=== PATIENT | male | born 1945 | race Caucasian/White ===

== ENCOUNTER 2016-12-21 21:45 | Inpatient (IN) | payer OTHER ==
[~2016-12-21] VITALS: Ht 175.3 cm; Wt 78.2 kg
[~2016-12-21 21:45] MED LIST: ASPEC81 PO; MRLP17 PO; PRLSRUNK
[2016-12-21] MEDS ORDERED: PRLSR20 PO (22:49)
[2016-12-21] MEDS ORDERED: ASPI81TA28 PO (22:49)
[2016-12-21] MEDS ORDERED: POLY335019 PO (22:49)
[2016-12-21] MEDS ORDERED: SODIUM CHLORIDE 0.9% 500ML 500 ML IV STA (23:23)
[2016-12-21] MEDS ORDERED: SODIUM CHLORIDE 0.9% 1000ML 1,000 ML IV STA (23:23)
[2016-12-21 23:58] LABS: BASO % 0.1 %; BASO ABS # 0.01 K/uL (0-0.2); COMPLETE YES; EOS % 0.8 %; HEMATOCRIT 43.5 % (42-52); IG% 0.3 %; LYMPH ABS # 1.32 K/uL (1.2-3.4); MEAN CELL VOLUME 85.1 fL (80-100); MEAN CORPUSCULAR HEMOGLOBIN 30.3 pg (25-34); MEAN CORPUSCULAR HGB CONC 35.6 g/dl (32-36); MONO % 5.7 %; NEUT % 82.1 %; PLATELET COUNT 238 K/uL (130-400); RED BLOOD COUNT 5.11 M/uL (4.7-6.1); WHITE BLOOD COUNT 11.96 K/uL (4.8-10.8)
[2016-12-22] VITALS (7 sets, daily range): BP systolic 115–156; BP diastolic 46–84; PULSE 46–53; TEMP 36.3–36.8; O2SAT 93–96; BMI 25.4
[2016-12-22 00:19] LABS: BUN/CREATININE RATIO 13.6 (10-20); CALCIUM 9.6 mg/dl (8.5-10.1); CREATININE 2.5 mg/dl (0.60-1.40); MAGNESIUM 2.2 mg/dl (1.8-2.4); POTASSIUM 4.2 mmol/L (3.5-5.1)
[2016-12-22] MEDS ORDERED: NovoLIN-R INSULIN PER UNIT CHARGE SC STA (00:20)
[2016-12-22] MEDS ORDERED: SODIUM CHLORIDE 0.9% 500ML 500 ML IV STA (00:23)
--- NOTE | 2016-12-22 00:29 | EMERGENCY ROOM VISIT NOTE ---
History Report prepared by Felix: Ish Peterson Under the Supervision of: Dr. Ursula Jefferson M.D. First contact with patient: 22:59 Chief Complaint: HYPERGLYCEMIA Stated Complaint: HIGH SUGAR Nursing Triage Summary: pt c/o increased thirst, appetite, frequent urination and lower back pain, pt checked his bsg at home and his meter read high. History of Present Illness The patient is a 71 year old male who presents to the Emergency Room with complaints of increasing frequency of urination that he has been experiencing for the past four weeks. The patient has been experiencing increased thirst and urinary frequency. He has never been diagnosed as a diabetic, but recently checked his blood sugar and found it was hyperglycemic. 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 The patient is also complaining of chronic lower back pain. He states that his pain is worsened when his bladder is full. 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 Review of Systems See HPI for pertinent positives & negatives. A total of 10 systems reviewed and were otherwise negative. Past Medical & Surgical Medical Problems: (1) JUANCHO (acute kidney injury) (2) Hyperglycemia (3) Liver cancer (4) Rectal adenocarcinoma Liver cancer Family History Cancer Social History Smoking Status: Never Smoker Drug Use: none Marital Status: Housing Status: lives with significant other Occupation Status: retired Current/Historical Medications Scheduled Aspirin (Aspirin Ec), 81 MG PO DAILY Atorvastatin (Atorvastatin Calcium), 20 MG PO QAM Doxycycline Hyclate (Doxycycline Hyclate), 100 MG PO BID Insulin Aspart (Novolog Flexpen), 5 UNITS SC with supper Insulin Detemir (Levemir Flextouch), 15 UNITS SQ BID Omeprazole (Prilosec), 20 MG PO DAILY Polyethylene Glycol 3350 (Miralax), 17 GM PO DAILY Durable Medical Equipment Insulin Pen Needle (Bd Pen Needle/Melody/Ultra), EA SQ TID Lancets (Onetouch Delica Lancets), EA SQ [OneT Verio Tst Strps], EA Allergies Coded Allergies: No Known Allergies (Verified , 12/21/16) Physical Exam Vital Signs Date Time Temp Pulse Resp B/P Pulse Ox O2 Delivery O2 Flow Rate FiO2 12/22/16 01:25 50 15 12/22/16 01:20 62 20 12/22/16 01:15 50 16 12/22/16 01:10 50 19 12/22/16 01:05 49 15 12/22/16 01:01 147/77 12/22/16 01:00 52 21 12/22/16 00:55 49 14 12/22/16 00:50 49 19 12/22/16 00:45 48 17 12/22/16 00:40 48 17 12/22/16 00:35 47 17 12/22/16 00:31 161/81 12/22/16 00:30 54 17 12/22/16 00:25 48 17 12/22/16 00:20 49 19 12/22/16 00:15 57 16 12/22/16 00:10 52 19 12/22/16 00:08 54 12/22/16 00:05 66 19 12/22/16 00:03 159/77 12/22/16 00:02 51 18 159/77 96 12/21/16 22:01 37.2 60 18 141/83 96 Room Air Physical Exam Vital signs reviewed. General: Well-appearing elderly male, in no significant distress. HEENT: No scleral icterus, PERRLA, neck supple. Atraumatic. Dry mucous membranes. Cardiovascular: Regular rate and rhythm, no extra sounds. Pulmonary: Clear to auscultation bilaterally, normal work of breathing. Abdomen: Soft, nontender nondistended, positive bowel sounds. Left lower abdominal colostomy bag. Musculoskeletal: Atraumatic, no peripheral edema. Back: Non tender to the thoracic/lumbar, no CVA tenderness. Neurologic: Patient awake alert and oriented x 3 Skin: Warm, dry, no rash Medical Decision & Procedures ER Provider Diagnostic Interpretation: X-ray results as stated below per my interpretation and radiologist interpretation. Other radiology results as stated below per my review and radiologist interpretation: X-RAY LUMBAR SPINE: X-ray shows no acute fracture, no malalignment. Fecal Retention present. Laboratory Results Test 12/21/16 22:25 12/21/16 23:30 Total Bilirubin 0.6 mg/dl (0.2-1) Direct Bilirubin 0.1 mg/dl (0-0.2) Aspartate Amino Transf (AST/SGOT) 9 U/L (15-37) Alanine Aminotransferase (ALT/SGPT) 19 U/L (12-78) Alkaline Phosphatase 214 U/L (45-117) Total Protein 8.1 gm/dl (6.4-8.2) Albumin 3.7 gm/dl (3.4-5.0) Lipase 290 U/L (73-393) Beta-Hydroxybutyric Acid 3.94 mg/dL (0.2-2.81) Urine Color YELLOW Urine Appearance TURBID (CLEAR) Urine pH 6.0 (4.5-7.5) Urine Specific [place] 1.015 (1.000-1.030) Urine Protein NEG (NEG) Urine Glucose (UA) 3+ (NEG) Urine Ketones NEG (NEG) Urine Occult Blood 3+ (NEG) Urine Nitrite NEG (NEG) Urine Bilirubin NEG (NEG) Urine Urobilinogen NEG (NEG) Urine Leukocyte Esterase MODERATE (NEG) Urine WBC (Auto) >30 /hpf (0-5) Urine RBC (Auto) 5-10 /hpf (0-4) Urine Hyaline Casts (Auto) 1-5 /lpf (0-5) Urine Epithelial Cells (Auto) 20-30 /lpf (0-5) Urine Bacteria (Auto) NEG (NEG) Urine Yeast (Auto) (NONE PRSENT) Laboratory results per my review. Medications Administered Medications (Trade) Dose Ordered Sig/Jenny Route Start Time Stop Time Status Last Admin Dose Admin Sodium Chloride 500 ml @ 999 mls/hr Q31M STAT IV 12/21/16 23:23 12/21/16 23:53 DC 12/22/16 00:01 999 MLS/HR Sodium Chloride (Nss 1000ml) 1,000 ml @ 150 mls/hr Q6H40M STAT IV 12/21/16 23:23 12/22/16 03:05 DC 12/22/16 00:01 150 MLS/HR Insulin Human Regular 10 units 10 units NOW STAT SC 12/22/16 00:20 12/22/16 00:21 DC 12/22/16 00:26 10 UNITS Sodium Chloride (Nss 500ml) 500 ml @ 999 mls/hr Q31M STAT IV 12/22/16 00:23 12/22/16 00:53 DC 12/22/16 00:27 999 MLS/HR Ciprofloxacin/ Dextrose (Cipro / D5w) 400 mg NOW STAT IV 12/22/16 01:05 12/22/16 01:06 DC 12/22/16 01:26 400 MG ECG Indication: other (Hyperglycemia) Rate (beats per minute): 50 Rhythm: sinus bradycardia Findings: LAFB, T-wave inversion (Lateral), other (Septal infarct) Comparison ECG Date: 07/02/2010 Change: T waves inversions worsened from previous ED Course 2321: Past medical records reviewed. The patient was evaluated in room C2. A complete history and physical examination was performed. 2323: Ordered Sodium Chloride 1000 mL @ 150 mL/hr IV, Sodium Chloride 500 mL @ 999 mL/hr IV. 0020: Ordered Human Insulin Regular 10 units SC. 0023: Ordered Sodium Chloride 500 mL @ 999 mL/hr IV. 0105: Ordered Ciprofloxacin 400 mg IV. 0109: I discussed the case with Dr. Jorge Luis CHRISTIANSON Hospitalist, he will evaluate the patient for further treatment. Medical Decision Differential Diagnosis include: New onset diabetes, sepsis, dehydration, UTI, pyelonephritis, chronic colonization of the bladder. This pt was evaluated and appeared to be in no distress. PE reveals dry MM, urine sample at bedside is cloudy. Beside glucose is elevated at 579, confirmed by lab testing. UA is indicative of infection. Pt was hydrated with NSS. Lab work does not indicate acidosis. Pt was medicated with SQ insulin 10 units regular and IV ceftriaxone. Results were reviewed with pt and family. Pt will be evaluated by the hospitalist service for further management. Consults Time Called: 99 Consulting Physician: Dr. Jorge Luis [facility] Returned Call: [phone] I discussed the case with Dr. Jorge Luis CHRISTIANSON Hospitalist, he will evaluate the patient for further treatment. Impression Primary Impression: Hyperglycemia Additional Impressions: Diabetes mellitus, new onset Lumbar back pain UTI (urinary tract infection) Pyelonephritis Scribe Attestation The scribe's documentation has been prepared under my direction and personally reviewed by me in its entirety. I confirm that the note above accurately reflects all work, treatment, procedures, and medical decision making performed by me. Departure Information Dispostion Being Evaluated By Hospitalist Prescriptions [OneT Verio Tst Strps] No Conflict Check EA, #120 Prov: Ragini Strickland MD 12/23/16 Lancets (ONETOUCH DELICA LANCETS) 1 Mis Mis EA SQ, #120 Prov: Ragini Strickland MD 12/23/16 Insulin Pen Needle (BD PEN NEEDLE/MELODY/ULTRA) 1 Mis Mis EA SQ TID for for insulin injection, #90 Prov: Ragini Strickland MD 12/23/16 Insulin Detemir (Levemir Flextouch) 100 Unit/Ml Inj 15 UNITS SQ BID, #1 BOX Prov: Ragini Strickland MD 12/23/16 Insulin Aspart (NOVOLOG FLEXPEN) 100 Units/Ml Inj 5 UNITS SC with supper for 30 Days, #1 BOX 0 Refills Prov: Ragini Strickland MD 12/23/16 Atorvastatin (Atorvastatin Calcium) 20 Mg Tab 20 MG PO QAM, #30 TABS Prov: Ragini Strickland MD 12/23/16 Doxycycline Hyclate (Doxycycline Hyclate) 100 Mg Cap 100 MG PO BID for 8 Days, #16 CAP 0 Refills Prov: Ragini Strickland MD 12/23/16 Referrals James Zheng M.D. (PCP) Patient Instructions My [facility] Problem Qualifiers Additional Impressions: Lumbar back pain Chronicity: chronic Back pain laterality: bilateral Sciatica presence: without sciatica Qualified Codes: M54.5 - Low back pain; G89.29 - Other chronic pain UTI (urinary tract infection) Urinary tract infection type: catheter-associated UTI Indwelling urinary catheter type: unspecified Encounter type: initial encounter Qualified Codes : T83.511A - Infection and inflammatory reaction due to indwelling urethral catheter, initial encounter; N39.0 - Urinary tract infection, site not specified
[2016-12-22 00:36] LABS: URINE APPEARANCE TURBID (CLEAR); URINE BILIRUBIN NEG (NEG); URINE COLOR YELLOW; URINE EPITHELIAL CELL AUTO 20-30 /lpf (0-5); URINE NITRITE NEG (NEG); URINE SPECIFIC GRAVITY 1.015 (1.000-1.030); UROBILINOGEN NEG (NEG); ZZUR CULT IF INDIC CLEAN CATCH YES
[2016-12-22 00:38] LABS: BETA-HYDROXYBUTYRATE 3.94 mg/dL (0.2-2.81)
[2016-12-22 00:39] LABS: MANUAL MICROSCOPIC REQUIRED? NO; REVIEW REQ? YES
[2016-12-22] MEDS ORDERED: CIPROFLOXACIN 400MG / 200ML D5W IV STA (01:05)
[2016-12-22] MEDS ORDERED: ONDANSETRON INJ 2 MG/ML 2 ML VIAL IV PRN (01:30)
[2016-12-22] MEDS ORDERED: ZOLPIDEM TARTRATE 5 MG TAB PO PRN (01:30)
[2016-12-22] MEDS ORDERED: ACETAMINOPHEN 325 MG TAB PO PRN (01:30)
[2016-12-22] MEDS ORDERED: POLYETHYLENE (MIRALAX) 17 GM PACK PO PRN (01:30)
[2016-12-22] MEDS ORDERED: MAGNESIUM HYDROXIDE SUSP 30 ML UDC PO PRN (01:30)
[2016-12-22] MEDS ORDERED: INSULIN IV INFUSION PROTOCOL STA (01:50)
[2016-12-22] MEDS ORDERED: HHS GOAL RANGE 250-350 mg/dl ONE (02:00)
--- NOTE | 2016-12-22 02:01 | History and Physical ---
History & Physical Date & Time of Service: Dec 22, 2016 at 01:59 Chief Complaint: High Sugar Primary Care Physician: James Zheng M.D. History of Present Illness Source: patient 71 y/o M Hx rectal CA in remission, CKD 3, Chronic urinary retention- self catheterizes. Pt has had a 15 Lb wt loss, progressive fatigue and back pain over the last several weeks. He has also c/o frequent urination and thirst. He has to catheterize to urinate but noted that he has had more frequent bladder fullness and tends to have back pain when his bladder is full. His son is a nurse and checked his blood glucose noting that it was over 500. He was subsequently brought to the ER. His glucose was confirmed at 600 on arrival. He has no history of diabetes. He denies fevers, CP, SOB, N/V/D. Initial labs were notable for an elevated creatinine in addition to hyperglycemia as mentioned. 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 Smoking Status: Never Smoker Drug Use: none Marital Status: Occupational Status: retired Immunizations History of Influenza Vaccine: Yes History of Tetanus Vaccine?: Unknown History of Pneumococcal: Yes History of Hepatitis B Vaccine: No Multi-Drug Resistant Organisms History of MDRO: Yes Allergies Coded Allergies: No Known Allergies (Verified , 12/21/16) Home Medications Scheduled Aspirin (Aspirin Ec), 81 MG PO DAILY Omeprazole (Prilosec), 20 MG PO DAILY Polyethylene Glycol 3350 (Miralax), 17 GM PO DAILY Review of Systems Constitutional: + fatigue, + weakness, + weight loss, No chills, No fever, No sweats Eyes: No eye pain, No worsening of vision ENT: No hearing loss, No nasal symptoms, No unusual epistaxis Respiratory: No cough, No sputum, No wheezing Cardiovascular: No PND, No chest pain, No orthopnea Abdomen: No nausea, No pain, No vomiting Musculoskeletal: No joint pain, No muscle pain Genitourinary - Male: + dysuria, + urinary frequency, + urinary retention, + urinary urgency, No hematuria Neurologic: No memory loss, No paralysis, No weakness Psychiatric: No depression symptoms Endocrine: + fatigue Hematologic / Lymphatic: No abnormal bleeding/bruising Integumentary: No rash Allergic / Immunologic: No environmental allergies Physical Exam Vital Signs Date Time Temp Pulse Resp B/P Pulse Ox O2 Delivery O2 Flow Rate FiO2 12/22/16 01:58 37.2 50 17 152/73 96 12/22/16 01:45 50 17 12/22/16 01:40 53 18 12/22/16 01:35 51 20 12/22/16 01:31 152/73 12/22/16 01:30 54 21 12/22/16 01:25 50 15 12/22/16 01:20 62 20 12/22/16 01:15 50 16 12/22/16 01:10 50 19 12/22/16 01:05 49 15 12/22/16 01:01 147/77 12/22/16 01:00 52 21 12/22/16 00:55 49 14 12/22/16 00:50 49 19 12/22/16 00:45 48 17 12/22/16 00:40 48 17 12/22/16 00:35 47 17 12/22/16 00:31 161/81 12/22/16 00:30 54 17 12/22/16 00:25 48 17 12/22/16 00:20 49 19 12/22/16 00:15 57 16 12/22/16 00:10 52 19 12/22/16 00:08 54 12/22/16 00:05 66 19 12/22/16 00:03 159/77 12/22/16 00:02 51 18 159/77 96 12/21/16 22:01 37.2 60 18 141/83 96 Room Air General Appearance: WD/WN, no apparent distress Head: normocephalic, atraumatic Eyes: normal inspection, PERRL, EOMI ENT: normal ENT inspection, hearing grossly normal, TMs normal, pharynx normal Neck: supple, no adenopathy, thyroid normal, no JVD Respiratory/Chest: chest non-tender, lungs clear, normal breath sounds, no respiratory distress, no accessory muscle use Cardiovascular: regular rate, rhythm, no edema, no gallop, no JVD, no murmur, normal peripheral pulses Abdomen/GI: normal bowel sounds, non tender, soft, + pertinent finding ( Colosomy bag LLQ - site is clean) Back: normal inspection, + pertinent finding (Back pain with movement) Extremities/Musculoskelatal: no calf tenderness, no pedal edema, + pertinent finding (Back pain with movement) Neurologic/Psych: 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, no motor/sensory deficits, alert, normal mood/affect, normal reflexes, oriented x 3 Skin: normal color, warm/dry, no rash Diagnostics Laboratory Results Results Past 24 Hours Test 12/21/16 22:25 12/21/16 22:26 12/21/16 23:30 12/22/16 01:21 Range/Units White Blood Count 11.96 4.8-10.8 K/uL Red Blood Count 5.11 4.7-6.1 M/uL Hemoglobin 15.5 14.0-18.0 g/dL Hematocrit 43.5 42-52 % Mean Corpuscular Volume 85.1 80-100 fL Mean Corpuscular Hemoglobin 30.3 25-34 pg Mean Corpuscular Hemoglobin Concent 35.6 32-36 g/dl Platelet Count 238 130-400 K/uL Mean Platelet Volume 12.0 7.4-10.4 fL Neutrophils (%) (Auto) 82.1 % Lymphocytes (%) (Auto) 11.0 % Monocytes (%) (Auto) 5.7 % Eosinophils (%) (Auto) 0.8 % Basophils (%) (Auto) 0.1 % Neutrophils # (Auto) 9.82 1.4-6.5 K/uL Lymphocytes # (Auto) 1.32 1.2-3.4 K/uL Monocytes # (Auto) 0.68 0.11-0.59 K/uL Eosinophils # (Auto) 0.09 0-0.5 K/uL Basophils # (Auto) 0.01 0-0.2 K/uL RDW Standard Deviation 38.9 36.4-46.3 fL RDW Coefficient of Variation 12.6 11.5-14.5 % Immature Granulocyte % (Auto) 0.3 % Immature Granulocyte # (Auto) 0.04 0.00-0.02 K/uL Sodium Level 133 136-145 mmol/L Potassium Level 4.2 3.5-5.1 mmol/L Chloride Level 94 98-107 mmol/L Carbon Dioxide Level 27 21-32 mmol/L Anion Gap 12.0 3-11 mmol/L Blood Urea Nitrogen 34 7-18 mg/dl Creatinine 2.50 0.60-1.40 mg/dl Est Creatinine Clear Calc Drug Dose 26.7 ml/min Estimated GFR () 28.7 Estimated GFR (Non- 24.7 BUN/Creatinine Ratio 13.6 10-20 Random Glucose 601 70-99 mg/dl Calcium Level 9.6 8.5-10.1 mg/dl Magnesium Level 2.2 1.8-2.4 mg/dl Total Bilirubin 0.6 0.2-1 mg/dl Direct Bilirubin 0.1 0-0.2 mg/dl Aspartate Amino Transf (AST/SGOT) 9 15-37 U/L Alanine Aminotransferase (ALT/SGPT) 19 12-78 U/L Alkaline Phosphatase 214 45-117 U/L Total Protein 8.1 6.4-8.2 gm/dl Albumin 3.7 3.4-5.0 gm/dl Lipase 290 73-393 U/L Beta-Hydroxybutyric Acid 3.94 0.2-2.81 mg/dL Bedside Glucose 579 451 70-99 mg/dl Urine Color YELLOW Urine Appearance TURBID CLEAR Urine pH 6.0 4.5-7.5 Urine Specific [place] 1.015 1.000-1.030 Urine Protein NEG NEG Urine Glucose (UA) 3+ NEG Urine Ketones NEG NEG Urine Occult Blood 3+ NEG Urine Nitrite NEG NEG Urine Bilirubin NEG NEG Urine Urobilinogen NEG NEG Urine Leukocyte Esterase MODERATE NEG Urine WBC (Auto) >30 0-5 /hpf Urine RBC (Auto) 5-10 0-4 /hpf Urine Hyaline Casts (Auto) 1-5 0-5 /lpf Urine Epithelial Cells (Auto) 20-30 0-5 /lpf Urine Bacteria (Auto) NEG NEG Urine Yeast (Auto) NONE PRSENT Microbiology Results 12/21/16 Urine Culture, Received Pending Impression Assessment and Plan 71 y/o M Hx rectal CA in remission, CKD 3, Chronic urinary retention- self catheterizes. Pt has had a 15 Lb wt loss, progressive fatigue and back pain over the last several weeks. He has also c/o frequent urination and thirst. He has to catheterize to urinate but noted that he has had more frequent bladder fullness and tends to have back pain when his bladder is full. His son is a nurse and checked his blood glucose noting that it was over 500. He was subsequently brought to the ER. His glucose was confirmed at 600 on arrival. 1) New onset DM - Pt placed on an insulin infusion to revert to transition to a sliding scale - we will place an endocrinology consult to establish an outpatient regimen and follow-up. DM diet and nutritional counseling will be requested. An Hba1C will be ordered for AM. 2) JUANCHO - will provide aggressive hydration and recheck labs AM. His back pain is of some concern so that we will obtain a renal US to evaluate for hydro. It may be that due to polyuria he was experiencing added pressure on his bladder leading to hydronephrosis. We will recommend a catheter for the evening as well. An FeNa and renal consult should be obtained if there is no improvement. 3) UA is marginally positive - clinically treatment is indicated - we will cont Ceftriaxone pending culture results Full code, Heparin prophylaxis Total tome for this admit including review of labs, meds, previous records - discussion with pt and family - 35 min Level of Care Telemetry Resuscitation Status FULL RESUSCITATION VTE Prophylaxis VTE Risk Assessment Done? Y/N: Yes Risk Level: High Given or contraindicated: Unfractionated heparin SQ
[2016-12-22] MEDS ORDERED: GLUCAGON FOR INJ 1 MG VIAL SQ PRN (02:15)
[2016-12-22] MEDS ORDERED: GLUCOSE 10 TABS/TUBE PO PRN (02:15)
[2016-12-22] MEDS ORDERED: GLUCOSE 40% GEL 15 GM TUBE PO PRN (02:15)
[2016-12-22] MEDS ORDERED: DEXTROSE 50% 50 ML SYR IV PRN (02:15)
[2016-12-22] MEDS ORDERED: INSULIN HUMAN REGULAR IV BOLUS 3 UNIT in SYRINGE 0 ML IV SCH (02:30)
[2016-12-22] MEDS ORDERED: INSULIN REGULAR 250 UNITS in SODIUM CHLORIDE 0.9% 250ML 250 ML IV SCH (02:30)
[2016-12-22] MEDS: SODIUM CHLORIDE 0.9% 1000ML 1,000 ML IV SCH ×2 (03:10→08:19)
[2016-12-22] MEDS: CEFTRIAXONE SOD INJ 1 GM in DEXTROSE 5% ADD-VANTAGE 50ML 50 ML IV SCH (03:17)
[2016-12-22 05:36] LABS: PROTHROMBIN TIME (PATIENT) 11.1 SECONDS (9.0-12.0)
[2016-12-22 05:53] LABS: BUN/CREATININE RATIO 14.3 (10-20); CALCIUM 8.5 mg/dl (8.5-10.1); CREATININE 2.1 mg/dl (0.60-1.40); MAGNESIUM 2.1 mg/dl (1.8-2.4); PHOSPHORUS 2.7 mg/dl (2.5-4.9); POTASSIUM 3.4 mmol/L (3.5-5.1)
[2016-12-22 06:11] LABS: ESTIMATED AVERAGE GLUCOSE 341 mg/dl; HA1C FLAG Normal (Normal)
[2016-12-22] MEDS: HEPARIN SOD 5000 UNIT/0.5 ML CARP SQ SCH ×3 (06:16→22:03)
--- NOTE | 2016-12-22 06:18 | DIAGNOSTIC IMAGING REPORT ---
LUMBAR SPINE 5 VIEWS HISTORY: Pain Low back pain, h/o colon liver CA COMPARISON: None. FINDINGS: There is no fracture. No subluxation. Moderate degenerative disc changes throughout IMPRESSION: Moderate degenerative change. No acute process. Electronically signed by: Niall Ta M.D. 12/22/2016 6:17 AM Dictated Date/Time: 12/22/2016 6:15 AM
[2016-12-22] MEDS ORDERED: INSULIN ASPART 100 UNITS/ML 3 ML PEN SC SCH ×2 (07:00→08:00)
[2016-12-22] MEDS ORDERED: NURSING DECISION MEDICATION ORDER SCH (07:30)
[2016-12-22] MEDS ORDERED: CEFTRIAXONE PHARMACY CONSULT IN PROGRESS PRN (07:45)
[2016-12-22] MEDS ORDERED: POTASSIUM CHLORIDE 10 MEQ TABCR PO STA (07:51)
[2016-12-22] MEDS: INSULIN ASPART 100 UNITS/ML 3 ML PEN SC SCH ×5 (08:14→23:57)
[2016-12-22] MEDS: PANTOprazole SOD 40 MG TAB PO SCH (08:18)
[2016-12-22] MEDS: POLYETHYLENE (MIRALAX) 17 GM PACK PO SCH (08:18)
[2016-12-22] MEDS: ASPIRIN 81 MG ECTAB PO SCH (08:18)
[2016-12-22] MEDS ORDERED: INSULIN GLARGINE SOLOSTAR 100 UNITS/ML 3 ML PEN SC ONE (09:15)
--- NOTE | 2016-12-22 09:29 | Progress Note ---
Progress Note Date of Service Dec 22, 2016. Progress Note Pt admitted after midnight. Chart reviewed, pt seen and examined. Improved today , no back pain, glucose down to 189, now off insulin gtt. No other issues at this time. Vitals reviewed, sinus yanni on tele NAD, AAOx3 Reg rhythm, yanni, no mgr CTAB no wcr breathing unlabored Abd soft NT ND +BS Ext no edema, 2+ DP and PT pulses Skin: dry skin on feet but no cracks or rashes New onset DMII with hyperglycemia, polyuria, polydypsia, weight loss. HgbA1C 13.5%, discussed diagnosis and complications possible, need for treatment. Not acidotic. start Lantus 15 units bid -continue Accuchecks and SSI. -Awaiting Diabetes education No need for Endocrine consultation at this time. - Check lipids and TSH in the AM, will need statin. 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 -continue IVFs -follow PRP Suspected UTI-self catheterizes at home due to chronic urinary retention s/p proctectomy-UA abnormal -continue empiric Rocephin -await Ur cx -continue Pino catheter for now Proph-heparin SQ Dispo-to home likely tomorrow if renal function continues to improve
[2016-12-22] MEDS ORDERED: PHARMACY GLYCEMIC MGMT CONSULT PRN (09:45)
--- NOTE | 2016-12-22 14:56 | Pharmacy Progress Note ---
Glycemic Control Intl Consult Date of Service Dec 22, 2016. Scope Glycemic Pharmacist consulted by Dr Strickland on 12/22/16 for glycemic control and to write orders per [facility] inpatient glycemic control protocol Objective Weight (Kilograms): 77.900 Accuchecks BSG (last 24hrs): Test 12/21/16 22:25 12/21/16 22:26 12/22/16 01:21 12/22/16 03:54 Random Glucose 601 mg/dl (70-99) Bedside Glucose 579 mg/dl (70-99) 451 mg/dl (70-99) 304 mg/dl (70-99) Test 12/22/16 04:50 12/22/16 05:18 12/22/16 05:53 12/22/16 06:47 Bedside Glucose 262 mg/dl (70-99) 213 mg/dl (70-99) 189 mg/dl (70-99) Random Glucose 257 mg/dl (70-99) Test 12/22/16 10:36 12/22/16 13:50 Bedside Glucose 301 mg/dl (70-99) 253 mg/dl (70-99) Laboratory Data (last 24hrs) Test 12/21/16 22:25 12/22/16 05:18 Anion Gap 12.0 mmol/L 8.0 mmol/L BUN/Creatinine Ratio 13.6 14.3 Blood Urea Nitrogen 34 mg/dl 30 mg/dl Creatinine 2.50 mg/dl 2.10 mg/dl Potassium Level 4.2 mmol/L 3.4 mmol/L Sodium Level 133 mmol/L 138 mmol/L White Blood Count 11.96 K/uL Red Blood Count 5.11 M/uL Hemoglobin 15.5 g/dL Hematocrit 43.5 % Mean Corpuscular Volume 85.1 fL Mean Corpuscular Hemoglobin 30.3 pg Mean Corpuscular Hemoglobin Concent 35.6 g/dl Platelet Count 238 K/uL Mean Platelet Volume 12.0 fL Neutrophils (%) (Auto) 82.1 % Lymphocytes (%) (Auto) 11.0 % Monocytes (%) (Auto) 5.7 % Eosinophils (%) (Auto) 0.8 % Basophils (%) (Auto) 0.1 % Neutrophils # (Auto) 9.82 K/uL Lymphocytes # (Auto) 1.32 K/uL Monocytes # (Auto) 0.68 K/uL Eosinophils # (Auto) 0.09 K/uL Basophils # (Auto) 0.01 K/uL Hemoglobin A1c 13.5 % HbA1c Test 12/22/16 05:18 Hemoglobin A1c 13.5 % (4.5-5.6) H Recent Pertinent Medications Outpatient Anti-diabetic Regimen: * N/A * A1c = 13.5 % 12/22/16 The patient is currently receiving: * Basal insulin: Lantus 15 units every 12 hours * Correctional Insulin: Novolog Correction per scale ACHS Goal Range: Low 120 mg/dL - High 160 mg/dL Correction Factor: 30 mg/dL/unit * Prandial insulin: Per carb ratio of 1 unit per 10 grams CHO consumed * Oral Agents: none Risk Factors for Insulin Resistance: * Steroids: no * Infection: possible UTI, on Rocephin * Pressors: no * IVF: NS@150 ml/hr * Recent Surgery: no * Diet: regular diet, changed to type 2 diabetic * Mechanical Ventilation: no Assessment & Plan ASSESSMENT: * ADA & AACE recommend a goal blood sugar range 140-180 mg/dl for the majority of critically ill & non-critically ill patients. However, more stringent targets may be selected in individual cases. * 71 yo patient with new diagnosis of DM. BSG over 600 in ED and mildly acidotic. Given 10 units regular insulin SC, then insulin drip started @0235 and dc' d @0653 when BSG became less than 200 and anion gap closed. Physician started Novolog correction factor 40. Pharmacy consulted about 0900. * A1c of 13.5% indicates poorly controlled diabetes requiring basal insulin (at least initially.) Started weight-based basal/bolus dosing, and will reassess in am. PLAN FOR INPATIENT GLYCEMIC CONTROL: * Basal insulin with LANTUS 15 units SQ BID * Correctional Insulin with NOVOLOG per scale ACHS or Q6hrs while NPO, extra BSG 's overnight tonight * Goal Range: Low 120 mg/dL - High 160 mg/dL * Correction Factor: 30 mg/dL/unit * Nutritional / Prandial insulin per carb ratio of 1 unit per 10 grams CHO consumed * Please note that the plan above was derived based on current level of insulin resistance and hospital stress. These recommendations are appropriate for inpatient admission only. Plan of care upon discharge will need to be reassessed to avoid potential outpatient hypo/hyperglycemia. Thank you.
[2016-12-22] MEDS: INSULIN GLARGINE SOLOSTAR 100 UNITS/ML 3 ML PEN SC SCH (21:35)
[2016-12-23 00:06] VITALS: BP 151/89; PULSE 47; TEMP 36.7; O2SAT 96
[2016-12-23] MEDS: CEFTRIAXONE SOD INJ 1 GM in DEXTROSE 5% ADD-VANTAGE 50ML 50 ML IV SCH (03:46)
[2016-12-23] MEDS: INSULIN ASPART 100 UNITS/ML 3 ML PEN SC SCH ×3 (03:49→11:50)
[2016-12-23 04:11] VITALS: BP 142/74; PULSE 46; TEMP 36.8; O2SAT 97
[2016-12-23] MEDS: HEPARIN SOD 5000 UNIT/0.5 ML CARP SQ SCH (05:36)
[2016-12-23 06:11] LABS: BASO % 0.3 %; BASO ABS # 0.02 K/uL (0-0.2); COMPLETE YES; EOS % 2.2 %; HEMATOCRIT 38.2 % (42-52); IG% 0.1 %; LYMPH % 26.7 %; LYMPH ABS # 1.81 K/uL (1.2-3.4); MEAN CELL VOLUME 87.6 fL (80-100); MEAN CORPUSCULAR HGB CONC 35.3 g/dl (32-36); MEAN PLATELET VOLUME 11.5 fL (7.4-10.4); MONO % 5.8 %; NEUT % 64.9 %; PLATELET COUNT 196 K/uL (130-400); RED BLOOD COUNT 4.36 M/uL (4.7-6.1); WHITE BLOOD COUNT 6.77 K/uL (4.8-10.8)
[2016-12-23 06:34] LABS: BUN/CREATININE RATIO 13.4 (10-20); CALCIUM 8.5 mg/dl (8.5-10.1); CREATININE 1.8 mg/dl (0.60-1.40); MAGNESIUM 1.9 mg/dl (1.8-2.4); POTASSIUM 3.8 mmol/L (3.5-5.1)
[2016-12-23 06:37] LABS: CHOLESTEROL/HDL RATIO 3.8
[2016-12-23] MEDS: ASPIRIN 81 MG ECTAB PO SCH (07:24)
[2016-12-23] MEDS: POLYETHYLENE (MIRALAX) 17 GM PACK PO SCH (07:24)
[2016-12-23] MEDS: PANTOprazole SOD 40 MG TAB PO SCH (07:24)
[2016-12-23] MEDS: INSULIN GLARGINE SOLOSTAR 100 UNITS/ML 3 ML PEN SC SCH (08:16)
[2016-12-23 08:18] VITALS: BP 138/67; PULSE 50; TEMP 36.8; O2SAT 95
--- NOTE | 2016-12-23 08:57 | Clinical Documentation Query ---
GIANNA Vizcarra : CLINICAL DOCUMENTATION QUERY Patient is a 71 year old male admitted for the evaluation and treatment of hyperglycemia in the setting of new onset DM, JUANCHO on CKD, and a UTI. 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 He is being treated with empiric Rocephin. Urine culture is pending. In your clinical opinion is this patient being managed for: ( x ) UTI due to intermittent urethral self catheterization ( ) Other explanation of clinical findings (Please Explain) ( ) Unable to determine (Please Define) ( ) Need to Discuss ( ) Not Agree The medical record reflects the following clinical findings, treatment, and risk factors. Clinical Indicators: Intermittent urethral self catheterization, suspected UTI Treatment: IV Rocephin Risk Factors: Intermittent urethral self catheterization Please clarify and document your clinical opinion in the progress notes and discharge summary. Terms such as "probable", "suspected", "likely", "questionable", "possible", or "still to be ruled out" are acceptable. IF IN AGREEMENT, YOU MUST DOCUMENT ABOVE DIAGNOSTIC STATEMENT IN DAILY PROGRESS NOTES AND DISCHARGE SUMMARY. This document is not part of the patient's record. Thank You, Remy Walters, DEACON [phone]
[2016-12-23 10:55] VITALS: Ht 175.3 cm; Wt 78.2 kg
[2016-12-23] MEDS ORDERED: LPT20 PO (11:33)
[2016-12-23] MEDS ORDERED: DXY100 PO (11:33)
[2016-12-23 11:59] VITALS: BP 120/59; PULSE 49; TEMP 36.6; O2SAT 95
[2016-12-23] MEDS ORDERED: INSU32MI13 SQ (12:12)
[2016-12-23] MEDS ORDERED: NVLGIPEN SC (12:12)
[2016-12-23] MEDS ORDERED: INSU3INJ3 SQ (12:12)
[2016-12-23] MEDS ORDERED: LANC-393 SQ (12:21)
[2016-12-23] MEDS ORDERED: [UNRECOGNIZED DRUG - SUPPLY] (12:21)
--- NOTE | 2016-12-23 12:32 | Discharge Instructions ---
Discharge Instructions Date of Service Dec 23, 2016. Admission Reason for Admission: Acute kidney injury, New onset Diabetes mellitus with Hyperglycemia Discharge Discharge Diagnosis / Problem: Acute kidney injury, New onset Diabetes mellitus with Hyperglycemia Discharge Goals Goal(s): Improve disease control, Therapeutic intervention Activity Recommendations Activity Limitations: resume your previous activity Exercise/Sports Limitations: gradually increase as tolerated Shower/Bathe: no limitations Driving or Machine Use: no limitations . Instructions / Follow-Up Instructions / Follow-Up You were admitted because of new onset diabetes mellitus with severe hyperglycemia (elevated blood sugar), as well as kidney failure. You were treated with IV fluids and started on insulin. You were seen by the Diabetic Nurse Educator and instructed on glucose testing, how to give yourself insulin, and proper diet to eat. You will need to be seen by an Construction Ironworker and have routine follow up with your PCP at least every 3 months for your diabetes. You will be started on atorvastatin for cholesterol and to reduce your risk of heart attack or stroke. You should check your feet regularly for cuts or cracks as well. Please check your blood glucose 4 times daily and take the insulin as prescribed. If you feel shaky, lightheaded, sweaty, or generally unwell, please check your blood glucose to see if it is too low. If it is below 70, you should drink juice or take a glucose tab which you can buy at the drug store. Your kidney function improved back to your baseline and this will need to be followed by Dr. Zheng as well. You were also found to have a urinary tract infection that is growing out Staph bacteria. The final culture was not back when you were discharged. Please take the antibiotic for this and have Dr. Zheng follow up on the final culture in the next 1-2 days. Please follow up with Dr. Zheng within 1 week. Current Hospital Diet Patient's current hospital diet: Regular Diet, Diabetes Type 2 Diet Discharge Diet Recommended Diet: Diabetes Type 2 Diet Procedures Procedures Performed: Lumbar spine xray Pending Studies Studies pending at discharge: yes List of pending studies: Urine culture Laboratory Results Hemoglobin A1c Test 12/22/16 05:18 Range/Units Estimated Average Glucose 341 mg/dl Hemoglobin A1c 13.5 H 4.5-5.6 % Lipid Panel Test 12/23/16 05:39 Range/Units Triglycerides Level 158 H 0-150 mg/dl Cholesterol Level 139 0-200 mg/dl HDL Cholesterol 37 mg/dl Cholesterol/HDL Ratio 3.8 LDL Cholesterol, Calculated 70 mg/dl Medical Emergencies . Who to Call and When: Medical Emergencies: If at any time you feel your situation is an emergency, please call 911 immediately. . Non-Emergent Contact Non-Emergency issues call your: Primary Care Provider Call Non-Emergent contact if: you have a fever, your pain is not controlled, your pain is worsening, you have any medication questions . . "Provider Documentation" section prepared by Ragini Strickland. VTE Core Measure Inpt VTE Proph given/why not?: Unfractionated heparin SQ
[2016-12-23 12:34] VITALS: BP 120/59; PULSE 49; TEMP 36.6; O2SAT 95
--- NOTE | 2016-12-23 21:43 | Discharge Summary ---
Discharge Summary Date of Service Dec 23, 2016. Discharge Summary Admission Date: Dec 22, 2016 at 01:26 Discharge Date: Dec 23, 2016 Discharge Disposition: Home with services (home RN) Principal Diagnosis: New onset DMII with hyperglycemia, JUANCHO Problems/Secondary Diagnoses: History of rectal CA CKD Stage III Chronic urinary retention requiring self-catheterization UTI secondary to intermittent self-catheterization present on admission Lumbar degenerative disc disease Immunizations: Have You Had Influenza Vaccine: Yes History of Tetanus Vaccine?: Unknown History of Pneumococcal: Yes History of Hepatitis B Vaccine: No Procedures: LUMBAR SPINE 5 VIEWS HISTORY: Pain Low back pain, h/o colon liver CA COMPARISON: None. FINDINGS: There is no fracture. No subluxation. Moderate degenerative disc changes throughout IMPRESSION: Moderate degenerative change. No acute process. Consultations: None Medication Reconciliation New Medications: Atorvastatin (Atorvastatin Calcium) 20 Mg Tab 20 MG PO QAM, #30 TABS Doxycycline Hyclate (Doxycycline Hyclate) 100 Mg Cap 100 MG PO BID for 8 Days, #16 CAP 0 Refills Insulin Detemir (Levemir Flextouch) 100 Unit/Ml Inj 15 UNITS SQ BID, #1 BOX Insulin Pen Needle (Bd Pen Needle/Melody/Ultra) 1 Mis Mis EA SQ TID for for insulin injection, #90 Lancets (Onetouch Delica Lancets) 1 Mis Mis EA SQ, #120 [OneT Verio Tst Strps] () EA, #120 Insulin Aspart (Novolog Flexpen) 100 Units/Ml Inj 5 UNITS SC with supper for 30 Days, #1 BOX 0 Refills Continued Medications: Aspirin (Aspirin Ec) 81 Mg Tab 81 MG PO DAILY Omeprazole (Prilosec) 20 Mg Capcr 20 MG PO DAILY, CAP Polyethylene Glycol 3350 (Miralax) 1 Pow Pow 17 GM PO DAILY Referrals At Discharge Follow up Referrals: Family Practice Referral - Within 1 Week with James Zheng M.D. Discharge Exam Pt feeling very well, afebrile. He feels comfortable with checking his glucose and self-injecting insulin. No abd pain or back pain. Review of Systems: Constitutional: No chills, No fever Eyes: No problem reported ENT: No problem reported Respiratory: No shortness of breath Cardiovascular: No chest pain Abdomen: No diarrhea, No nausea, No pain, No vomiting Musculoskeletal: No problem reported Genitourinary - Male: + urinary retention Neurologic: No numbness/tingling Psychiatric: No problem reported Endocrine: + excessive thirst, + excessive urination Hematologic / Lymphatic: No problem reported Integumentary: No rash Physical Exam: General Appearance: WD/WN, no apparent distress Eyes: normal inspection, EOMI, sclerae normal ENT: hearing grossly normal, pharynx normal Neck: supple, no adenopathy, thyroid normal, no JVD, no carotid bruits, trachea midline Respiratory/Chest: lungs clear, normal breath sounds, no respiratory distress, no accessory muscle use Cardiovascular: regular rate, rhythm, no edema, no gallop, no JVD, no murmur , normal peripheral pulses Abdomen / GI: normal bowel sounds, non tender, soft, no organomegaly, no pulsatile mass, + pertinent finding (Starr catheter in place; colostomy bag in place) Extremities: normal inspection, no calf tenderness, normal capillary refill , no pedal edema Neurologic/Psychiatric: alert, normal mood/affect, oriented x 3 Skin: normal color, warm/dry, no rash (except feet with dry skin, no cracks or wounds) Hospital Course 71 y/o M Hx rectal CA in remission, CKD stage 3, Chronic urinary retention- self catheterizes. Pt has had a 15 Lb wt loss, progressive fatigue and back pain over the last several weeks. He has also c/o frequent urination and thirst. He has to catheterize to urinate but noted that he has had more frequent bladder fullness and tends to have back pain when his bladder is full. His son is a nurse and checked his blood glucose noting that it was over 500. He was subsequently brought to the ER. His glucose was confirmed at 600 on arrival. 1) New onset DM - Pt placed on an insulin infusion initially then transitioned to Lantus 15 units bid with Novolog sliding scale. His glucose came down easily into the 100s by the next day. His HgbA1C was 13.5%. He was seen by the Sawyer Helper and counseled extensively on his diagnosis and possible complications, treatment course, importance of following ADA diet, glucose monitoring at home, and routine doctor's visits, foot checks, and need for Ophthalmology evaluation. Lipid panel showed LDL 70 and TChol 139, HDL 60 however still at high risk fo ASCVD, recommended he start a moderate intensity statin. He will need an ACEI at some point but didn't want to overload him with too many new meds all at once. This can be added as an outpatient. He was instructed to follow up with his PCP within 1 week. 2) JUANCHO in setting of CKD stage III- production tester was 2.5 on admission and returned to 1.8 on the day of discharge with IVFs. This was secondary to prerenal azotemia from dehydration from hyperglycemia. His back pain was likely secondary to urinary retention and polyuria, Lumbar spine series in ER showed DDD but nothing acute. He had a Starr catheter placed during hospitalization and it was removed on day of discharge. He did have an abnormal UA and was growing Staph species on urine culture at the time of discharge. He has a remote h/o MRSA and was placed on doxycycline for a 10 day course to go home with. 3) H/o rectal CA s/p surgical excision with colostomy-stable, no issues Full code, Heparin prophylaxis Dispo-to home Total Time Spent: Greater than 30 minutes This includes examination of the patient, discharge planning, medication reconciliation, and communication with other providers. Discharge Instructions Please refer to the electronic Patient Visit Report (Discharge Instructions) for additional information. Follow-Up PCP within 1 week Additional Copies To James Zheng M.D.
[2017-07-02] MEDS ORDERED: ATOR-24 PO (07:50)
== END 2016-12-23 13:14 | disposition home or self-care (01) | DRG 699 ==
LOC: ENRESERVDT → ENRESERVTM → C.EDB 21:46 → C.2E 12-22 01:26
PROVIDERS: ADMIT Internal Medicine; ATTEND Family Medicine
DX: T83.511A Infection and inflammatory reaction due to indwelling urethral catheter, initial encounter (principal); N17.9 Acute kidney failure, unspecified; E11.65 Type 2 diabetes mellitus with hyperglycemia; Z85.038 Personal history of other malignant neoplasm of large intestine; N18.3 Chronic kidney disease, stage 3 (moderate); R33.9 Retention of urine, unspecified; N39.0 Urinary tract infection, site not specified; M51.36 Other intervertebral disc degeneration, lumbar region; Y84.6 Urinary catheterization as the cause of abnormal reaction of the patient, or of later complication, without mention of misadventure at the time of the procedure; E86.0 Dehydration; Z86.14 Personal history of Methicillin resistant Staphylococcus aureus infection; E11.22 Type 2 diabetes mellitus with diabetic chronic kidney disease

== ENCOUNTER → 2017-07-15 | Day surgery (SDC) | payer OTHER ==
[2017-07-02 07:34] VITALS: BMI 23.0
[~2017-07-15] VITALS: Ht 175.3 cm; Wt 70.5 kg
[~2017-07-15] MED LIST changes: -ASPEC81 PO; +ASPI81TA28 PO; +ATOR-24 PO; +LIDOCAINE HCL 2% 2 ML VIAL (20MG/ML) ONE; -MRLP17 PO; +POLY335019 PO; +PRLSR20 PO; -PRLSRUNK; +PROPOFOL IV EMULSION 10 MG/ML 20 ML VIAL IV ONE
[2017-07-15 12:18] VITALS: TEMP 36.5
[2017-07-15 12:20] VITALS: Ht 175.3 cm; Wt 70.5 kg
--- NOTE | 2017-07-15 12:50 | Endo History and Physical ---
History & Physical Date of Service: Jul 15, 2017. Chief Complaint: HISTORY RECTAL CA Referring Physician: DR. IRENE History of Present Illness For Colonoscopy Past Surgical History Hx Cardiac Surgery: No Hx Internal Defibrillator: No Hx Pacemaker: No Hx Abdominal Surgery: Yes (hernia repair) Hx of Implantable Prosthesis: No Hx Post-Op Nausea and Vomiting: No Hx Cancer Surgery: No (removal of rectum with ostomy, liver resection) Hx Thoracic Surgery: No Hx Orthopedic: No Hx Urinary Tract Surgery: No Family History None Social History Smoking Status: Never Smoker Hx Substance Use: No Hx Alcohol Use: No Allergies Coded Allergies: No Known Allergies (Verified , 07/15/17) Current Medications Reported Home Medications Medications Dose Route/Sig Max Daily Dose Days Date Category Dose Instructions Lipitor (Atorvastatin Calcium) 40 Mg Tab 40 Mg PO QAM 07/02/17 Reported Miralax (Polyethylene Glycol 3350) 1 Pow Pow 17 Gm PO Q2D 12/21/16 Reported am Prilosec (Omeprazole) 20 Mg Capcr 20 Mg PO 2XWEEK 12/21/16 Reported Aspirin Ec (Aspirin) 81 Mg Tab 81 Mg PO QAM 12/21/16 Reported Vital Signs Weight (Kilograms): 70.45 Height (Feet): 5 Height (Inches): 9 Date Time Temp Pulse Resp B/P (MAP) Pulse Ox O2 Delivery O2 Flow Rate FiO2 07/15/17 12:18 36.5 48 16 171/79 (109) 99 Room Air Physical Exam General Appearance: WD/WN Respiratory/Chest: Respiratory effort: no dyspnea Cardiovascular: Heart Auscultation: RRR Assessment and Plan Hx rectal cancer for colonoscopy
--- NOTE | 2017-07-15 13:11 | Discharge Instructions ---
Endoscopy Patient Instructions Date / Procedure(s) Performed Jul 15, 2017. Colonoscopy Allergy Information Coded Allergies: No Known Allergies (Verified , 07/15/17) Discharge Date / Findings Jul 15, 2017. Diverticulosis Medication Instructions Restart Stopped Medication(s): resume meds Reported Home Medications Medications Dose Route/Sig Max Daily Dose Days Date Category Dose Instructions Lipitor (Atorvastatin Calcium) 40 Mg Tab 40 Mg PO QAM 07/02/17 Reported Miralax (Polyethylene Glycol 3350) 1 17 Gm PO Q2D 12/21/16 Reported am Prilosec (Omeprazole) 20 Mg Capcr 20 Mg PO 2XWEEK 12/21/16 Reported Aspirin Ec (Aspirin) 81 Mg Tab 81 Mg PO QAM 12/21/16 Reported Provider Instructions Activity Restrictions - No exercising or heavy lifting for 24 hours. - Do not drink alcohol the day of the procedure. - Do not drive a car or operate machinery until the day after the procedure. - Do not make any important decisions or sign important papers in 24 hours after the procedure. Following Day: - Return to full activity which may include returning to work/school. Diet Start your diet with liquids and light foods (jello, soup, juice, toast). Then eat your usual diet if not nauseated. Treatment For Common After Affects For mild abdominal pain, bloating, or excessive gas: - Rest - Eat lightly - Lie on right side Follow-Up Information Follow-up with DR. IRENE as scheduled Anesthesia Information What You Should Know You have had a procedure that required some medicine to reduce anxiety and discomfort. This treatment is called moderate sedation. After receiving the treatment, you may be sleepy, but you will be able to breathe on your own. The effects of the treatment may last for several hours. Follow these instructions along with Activity/Diet recommendations noted above: * Do NOT do anything where dizziness or clumsiness would be dangerous. * Rest quietly at home today, then you can be up and about tomorrow. * Have a responsible person stay with you the rest of today. * You may have had an I.V. today. If so, you may take the dressing off later today. Recommendations Call your doctor if: * Trouble breathing * Continuous vomiting for more than 24 hours * Temperature above 101 degrees * Severe abdominal pain or bloating * Pain not relieved by pain medicine ordered * There is increased drainage or redness from any incision * A large amount of rectal bleeding greater than 2-3 tablespoons. (If you had a polyp/s removed or have hemorrhoids, a small amount of blood - from the rectum is to be expected.) * You have any unanswered questions or concerns. IN THE EVENT OF A SERIOUS EMERGENCY, GO TO THE NEAREST EMERGENCY ROOM Your discharge instructions were prepared by provider Jacky Jason. Patient Instructions Signature Page Yunior Rosas Patient (or Guardian) Signature/Date: I have read and understand the instructions given to me by my caregivers. Caregiver/RN/Doctor Signature/Date: The above-named patient and/or guardian has received patient instructions on this date. + Original Patient Signature Page (only) stays with chart. Please make copy for patient.
--- NOTE | 2017-07-15 13:14 | GI REPORT ---
Procedure Date: 07/15/2017 12:40 PM Procedure: Colonoscopy Indications: Personal history of malignant rectal neoplasm Medicines: Propofol total dose 120 mg IV, Lidocaine 40 mg IV Complications: No immediate complications. Estimated Blood Loss: Estimated blood loss: none. Procedure: Pre-Anesthesia Assessment: - Prior to the procedure, a History and Physical was performed, and patient medications, allergies and sensitivities were reviewed. The patient's tolerance of previous anesthesia was reviewed. - The risks and benefits of the procedure and the sedation options and risks were discussed with the patient. All questions were answered and informed consent was obtained. After I obtained informed consent, the scope was passed under direct vision. Throughout the procedure, the patient's blood pressure, pulse, and oxygen saturations were monitored continuously. The scope was introduced through the descending colostomy and advanced to the cecum, identified by appendiceal orifice and ileocecal valve. The colonoscopy was performed without difficulty. The patient tolerated the procedure well. The quality of the bowel preparation was excellent. Findings: A few diverticula were found in the descending colon. Impression: - Diverticulosis in the descending colon. - No specimens collected. Recommendation: - Discharge patient to home (ambulatory). - Continue present medications. - Repeat colonoscopy in 5 years for surveillance. - Return to primary care physician PRN. Jacky Jason M.D. Jacky Jason MD 07/15/2017 1:13:48 PM This report has been signed electronically. Note Initiated On: 07/15/2017 12:40 PM I attest to the content of the Intraoperative Record and orders documented therein, exceptions below
[2017-07-15 13:45] VITALS: BP 136/73; PULSE 48; O2SAT 97
--- NOTE | 2017-07-15 13:56 | Anesthesiology Progress Note ---
Anesthesia Post Op Note Date & Time Jul 15, 2017 at 13:56 Vital Signs Pain Intensity: 0 Vital Signs Past 12 Hours Date Time Temp Pulse Resp B/P (MAP) Pulse Ox O2 Delivery O2 Flow Rate FiO2 07/15/17 13:45 48 18 136/73 (94) 97 Room Air 07/15/17 13:28 47 18 137/72 (93) 97 Room Air 07/15/17 13:13 50 16 125/66 (85) 95 Room Air 07/15/17 12:18 36.5 48 16 171/79 (109) 99 Room Air Notes Mental Status: alert / awake / arousable, participated in evaluation Pt Amnestic to Procedure: Yes Nausea / Vomiting: adequately controlled Pain: adequately controlled Airway Patency, RR, SpO2: stable & adequate BP & HR: stable & adequate Hydration State: stable & adequate Anesthetic Complications: no major complications apparent
== END | disposition home or self-care (01) ==
LOC: C.GI 12:01
PROVIDERS: ATTEND Internal Medicine Gastroenterology
DX: Z12.11 Encounter for screening for malignant neoplasm of colon (principal); K57.30 Diverticulosis of large intestine without perforation or abscess without bleeding; Z85.048 Personal history of other malignant neoplasm of rectum, rectosigmoid junction, and anus; Z98.890 Other specified postprocedural states; Z79.899 Other long term (current) drug therapy; Z68.23 Body mass index [BMI] 23.0-23.9, adult

== ENCOUNTER 2020-11-23 16:09 | Observation (INO) ==
[2020-11-23] MEDS ORDERED: ONDANSETRON INJ 2 MG/ML 2 ML VIAL IV STA (17:00)
--- NOTE | 2020-11-23 17:11 | Emergency Department Note ---
Impression & Plan Hip pain, right, Hydronephrosis, Abnormal MRI, lumbar spine ED Provider Note INFORMANT: Patient ED PROVIDER(S): Devin Tavarez MD CHIEF COMPLAINT: Right hip pain PLAN: Disposition: Admitted Condition: Good Outpatient prescription management: none Referral: None MEDICAL DECISION MAKING: Patient presented to emergency room by direction of his outpatient physicians for admission and work-up regarding the hip pain and possible metastatic disease seen in his spine. Patient was treated with IV Dilaudid. He had an unremarkable CBC and chemistry panel with mild anemia and mild renal insufficiency noted. The patient did have a cath urine specimen obtained and was concerning for UTI. He was given IV Rocephin. Consultation was made with Dr. Carey of the [facility] service. Patient was evaluated in the ER admitted for further management. Triage Nursing notes reviewed and agree them. Additional history obtained from patient's . Prior medical records reviewed regarding his abnormal outpatient MRI. Vital Signs: reviewed and remarkable for no significant abnormalities Differential diagnosis: Musculoskeletal, disc herniation, fracture, metastatic disease, cord compression, discitis, sciatica, cauda equina, infection, aortic disease, renal colic, gastrointestinal, as well as other pathologies. Diagnostics interpreted by me: Cardiac Monitoring: Cardiac monitoring ordered by me: The patient was placed on continuous cardiac monitoring and observed. It revealed a sinus bradycardia at 47 beats per minute without ectopy or evidence of dysrhythmia. Imaging studies: CT scan of the pelvis: 1. No acute bony abnormality is seen involving the hips or pelvis. 2. Status post proctocolectomy with left lower quadrant colostomy. There is no evidence of bowel obstruction. 3. There is a parastomal hernia containing a segment of colon. 4. A left inguinal hernia contains a nonobstructed segment of small bowel. 5. There is distal ureteral dilatation. 6. There is a 2.9 cm focus of irregular soft tissue thickening in the right posterior pelvis which represents a change from the 10/23/2013 PET examination. This is nonmasslike and may represent chronic fibrosis/scarring. Neoplasm is considered less likely. Attention at follow-up is recommended. Consultation(s): Hospitalist HPI: The patient is a 75 year old male who presents to the Emergency Room with complaints of right hip pain. This started weeks ago and is worsening. No trauma. Patient reportedly had an outpatient MRI ordered by his primary physician. The results revealed a possible metastatic focus in L1 as well as chronic right-sided and left-sided hydronephrosis. The patient and his were directed to the emergency department by Dr. Angel for pain control, further work-up, and PET scan. The patient also notes the following associated symptoms, none. The patient has tried Naprosyn unsuccessfully for relieving factors. Current pain is rated as 10/10. Pt denies LOC, headache, fevers, chills, diaphoresis, visual changes, neck pain, chest pain, breathing difficulties, nausea, vomiting, abdominal pain, back pain, melena, hematochezia, urinary symptoms, numbness, weakness, lymphadenopathy, rash, or other complaints. ROS: See above HPI for pertinent positives & negatives. A total of 10 systems reviewed and were otherwise negative. PAST MEDICAL HISTORY:See Below , rectal cancer PAST SURGICAL HISTORY:See Below, colostomy FAMILY HISTORY:See Below SOCIAL HISTORY:See Below, HOME MEDICATIONS:See Below ALLERGIES:See Below VITALS:See Below PHYSICAL EXAMINATION: GENERAL: Awake, alert, uncomfortable-appearing, in no distress HENT: Normocephalic, atraumatic. Oropharynx unremarkable. EYES: Normal conjunctiva. Sclera non-icteric. NECK: Inspection normal. Non-tender. Supple. No nuchal rigidity. FROM. No supriya s. RESPIRATORY: Clear to auscultation. No wheezes. No rales. Normal respiratory effort. CARDIAC: Normal rate. Normal rhythm. No murmurs. No rubs. Extremities warm and well perfused. Pulses equal. No JVD. GI: Soft, non-distended. No tenderness to palpation. No rebound or guarding. No masses. RECTAL: Deferred. MUSCULOSKELETAL: Atraumatic. Chest examination reveals no tenderness. The back is symmetrical on inspection without obvious abnormality. There is no CVA tenderness to palpation. No joint edema. Good range of motion of the right hip. Tenderness to palpation in the right sciatic notch. LOWER EXTREMITIES: Calves are equal size bilaterally and non-tender. No edema. No discoloration. NEURO: Normal sensorium. No sensory or motor deficits noted. SKIN: No rash or jaundice noted. Devin Taavrez MD Past Med/Surg History Medical History (Updated 11/23/20 @ 19:36 by VAZQUEZ Ragsdale) Borderline diabetes Cancer COLON LIVER CKD (chronic kidney disease) GERD (gastroesophageal reflux disease) Hyperlipidemia Surgical History H/O eye surgery METAL REMOVED H/O resection of liver RADIATION AND CANCER REMOVED History of bowel resection History of cataract surgery RT History of colonoscopy History of colostomy History of herniorrhaphy History of tooth extraction Social History Smoking Status: Never smoker Second Hand Exposure: No; Hx Alcohol Use: No Hx Substance Use: No Preferred Language: Arabic Communication Ability: Effective Manager Orange Required: No Beliefs That Will Affect Care: None Current Living Situation: Spouse Feels Safe at Home: Yes Assistive Devices: Denture - Upper, Denture - Lower and Glasses Allergies Allergies Allergy/AdvReac Type Severity Reaction Status Date / Time No Known Allergies Allergy Verified 01/18/19 06:29 Home Meds Home Medications Medication Instructions Recorded Confirmed omeprazole 20 mg PO QAM 12/22/18 11/23/20 aspirin [Aspirin Low-Strength] 81 mg PO DAILY 11/23/20 11/23/20 atorvastatin 80 mg PO QPM 11/23/20 11/23/20 losartan 25 mg PO DAILY 11/23/20 11/23/20 Results & Data (ED) Vital Signs Vital Signs - 24 hr 11/23/20 16:18 11/23/20 17:15 11/23/20 17:16 Temperature 36.6 C Temperature Source Temporal Artery Scan Pulse Rate 54 L 45 L 52 L Pulse Rate [Apical] 46 L Pulse Rate from SpO2 Sensor 46 L Respiratory Rate 20 20 17 Respiratory Effort / Characteristics Non-Labored Non-Labored Spontaneous Respiratory Depth Normal Normal Respiratory Pattern Regular Blood Pressure 111/78 155/74 H Blood Pressure [Right Arm] 155/74 H Blood Pressure Mean 89 101 Blood Pressure Mean [Right Arm] 101 Pulse Oximetry 97 97 96 Oxygen Delivery Method Room Air Room Air Sepsis Recent Fever Within 48 Hours No Sepsis New/Unexplained Change in Mental Status N/A Sepsis Action Taken by Nursing No Action Required 11/23/20 17:24 11/23/20 17:30 11/23/20 17:31 Temperature Temperature Source Pulse Rate 46 L 46 L 46 L Pulse Rate [Apical] Pulse Rate from SpO2 Sensor 46 L 46 L 47 L Respiratory Rate 15 19 18 Respiratory Effort / Characteristics Respiratory Depth Respiratory Pattern Blood Pressure 144/74 H Blood Pressure [Right Arm] Blood Pressure Mean 97 Blood Pressure Mean [Right Arm] Pulse Oximetry 97 96 96 Oxygen Delivery Method Sepsis Recent Fever Within 48 Hours Sepsis New/Unexplained Change in Mental Status Sepsis Action Taken by Nursing 11/23/20 18:00 11/23/20 18:01 11/23/20 18:23 Temperature Temperature Source Pulse Rate 51 L 47 L 48 L Pulse Rate [Apical] Pulse Rate from SpO2 Sensor 50 L 48 L 48 L Respiratory Rate 21 22 19 Respiratory Effort / Characteristics Respiratory Depth Respiratory Pattern Blood Pressure 146/121 H 159/75 H Blood Pressure [Right Arm] Blood Pressure Mean 129 103 Blood Pressure Mean [Right Arm] Pulse Oximetry 97 98 99 Oxygen Delivery Method Sepsis Recent Fever Within 48 Hours Sepsis New/Unexplained Change in Mental Status Sepsis Action Taken by Nursing 11/23/20 18:30 11/23/20 18:31 11/23/20 19:00 Temperature Temperature Source Pulse Rate 44 L 46 L 46 L Pulse Rate [Apical] Pulse Rate from SpO2 Sensor 44 L 46 L 46 L Respiratory Rate 12 13 14 Respiratory Effort / Characteristics Respiratory Depth Respiratory Pattern Blood Pressure 155/78 H 157/80 H Blood Pressure [Right Arm] Blood Pressure Mean 103 105 Blood Pressure Mean [Right Arm] Pulse Oximetry 97 96 97 Oxygen Delivery Method Sepsis Recent Fever Within 48 Hours Sepsis New/Unexplained Change in Mental Status Sepsis Action Taken by Nursing 11/23/20 19:01 11/23/20 19:30 11/23/20 19:31 Temperature Temperature Source Pulse Rate 46 L 46 L 46 L Pulse Rate [Apical] Pulse Rate from SpO2 Sensor 46 L 46 L 46 L Respiratory Rate 16 13 18 Respiratory Effort / Characteristics Respiratory Depth Respiratory Pattern Blood Pressure 144/74 H Blood Pressure [Right Arm] Blood Pressure Mean 97 Blood Pressure Mean [Right Arm] Pulse Oximetry 97 96 96 Oxygen Delivery Method Sepsis Recent Fever Within 48 Hours Sepsis New/Unexplained Change in Mental Status Sepsis Action Taken by Nursing Laboratory Data Result diagrams: 11/23/20 17:19 11/23/20 17:19 Lab Results 11/23/20 11/23/20 11/23/20 Range/Units 17:19 17:19 18:19 WBC 5.84 (4.8-10.8) K/uL RBC 4.28 L (4.7-6.1) M/uL Hgb 13.6 L (14.0-18.0) g/dL Hct 39.9 L (42-52) % MCV 93.2 (80-100) fL MCH 31.8 (25-34) pg MCHC 34.1 (32-36) g/dL RDW Std Deviation 48.2 H (36.4-46.3) fL RDW Coeff of Gustavo 14.2 (11.5-14.5) % Plt Count 189 (130-400) K/uL MPV 11.3 H (7.4-10.4) fL Immature Gran % (Auto) 0.0 % Neut % (Auto) 69.5 % Lymph % (Auto) 19.0 % [place] % (Auto) 9.6 % Eos % (Auto) 1.7 % Baso % (Auto) 0.2 % Neut # (Auto) 4.06 (1.4-6.5) K/uL Lymph # (Auto) 1.11 L (1.2-3.4) K/uL [place] # (Auto) 0.56 (0.11-0.59) K/uL Eos # (Auto) 0.10 (0-0.5) K/uL Baso # (Auto) 0.01 (0-0.2) K/uL Immature Gran # (Auto) 0.00 (0.00-0.02) K/uL Sodium 141 (136-145) mmol/L Potassium 4.3 (3.5-5.1) mmol/L Chloride 112 H (98-107) mmol/L Carbon Dioxide 23 (21-32) mmol/L Anion Gap 6.0 (3-11) BUN 33 H (7-18) mg/dl Creatinine 1.60 H (0.6-1.4) mg/dl Est Cr Clr Drug Dosing 36.7 ml/min Est GFR ( Amer) 47.8 Est GFR (Non-Af Amer) 41.2 BUN/Creatinine Ratio 20.4 H (10-20) Glucose 139 H (70-99) mg/dl Calcium 8.7 (8.5-10.1) mg/dl Total Bilirubin 0.6 (0.2-1) mg/dl AST 15 (15-37) U/L ALT 21 (12-78) U/L Alkaline Phosphatase 151 H (45-117) U/L Total Protein 6.8 (6.4-8.2) gm/dl Albumin 4.1 (3.4-5.0) gm/dl Globulin 2.7 (2.5-4.0) gm/dl Albumin/Globulin Ratio 1.5 (0.9-2) TSH 1.450 (0.300-4.500) uIu/ml Urine Color Yellow Urine Appearance Cloudy A (Clear) Urine pH 5.5 (4.5-7.5) Ur Specific [place] 1.012 (1.000-1.030) Urine Protein Trace H (Negative) Urine Glucose (UA) Trace H (Negative) Urine Ketones Negative (Negative) Urine Blood 1+ H (Negative) Urine Nitrite Positive A (Negative) Urine Bilirubin Negative (Negative) Urine Urobilinogen Negative (Negative) Ur Leukocyte Esterase 3+ H (Negative) Urine WBC (Auto) >30 H (0-5) /hpf Urine RBC (Auto) 0-4 (0-4) /hpf U Hyaline Cast (Auto) 0 (0-5) /lpf U Epithel Cells (Auto) 0-5 (0-5) /lpf Urine Bacteria (Auto) Negative (Negative) Urine Yeast Not Reportable COVID-19 Eval Order SARS-CoV-2, RNA, NAAT (NEGATIVE) 11/23/20 11/23/20 Range/Units 18:21 18:21 WBC (4.8-10.8) K/uL RBC (4.7-6.1) M/uL Hgb (14.0-18.0) g/dL Hct (42-52) % MCV (80-100) fL MCH (25-34) pg MCHC (32-36) g/dL RDW Std Deviation (36.4-46.3) fL RDW Coeff of Gustvao (11.5-14.5) % Plt Count (130-400) K/uL MPV (7.4-10.4) fL Immature Gran % (Auto) % Neut % (Auto) % Lymph % (Auto) % [place] % (Auto) % Eos % (Auto) % Baso % (Auto) % Neut # (Auto) (1.4-6.5) K/uL Lymph # (Auto) (1.2-3.4) K/uL [place] # (Auto) (0.11-0.59) K/uL Eos # (Auto) (0-0.5) K/uL Baso # (Auto) (0-0.2) K/uL Immature Gran # (Auto) (0.00-0.02) K/uL Sodium (136-145) mmol/L Potassium (3.5-5.1) mmol/L Chloride (98-107) mmol/L Carbon Dioxide (21-32) mmol/L Anion Gap (3-11) BUN (7-18) mg/dl Creatinine (0.6-1.4) mg/dl Est Cr Clr Drug Dosing ml/min Est GFR ( Amer) Est GFR (Non-Af Amer) BUN/Creatinine Ratio (10-20) Glucose (70-99) mg/dl Calcium (8.5-10.1) mg/dl Total Bilirubin (0.2-1) mg/dl AST (15-37) U/L ALT (12-78) U/L Alkaline Phosphatase (45-117) U/L Total Protein (6.4-8.2) gm/dl Albumin (3.4-5.0) gm/dl Globulin (2.5-4.0) gm/dl Albumin/Globulin Ratio (0.9-2) TSH (0.300-4.500) uIu/ml Urine Color Urine Appearance (Clear) Urine pH (4.5-7.5) Ur Specific [place] (1.000-1.030) Urine Protein (Negative) Urine Glucose (UA) (Negative) Urine Ketones (Negative) Urine Blood (Negative) Urine Nitrite (Negative) Urine Bilirubin (Negative) Urine Urobilinogen (Negative) Ur Leukocyte Esterase (Negative) Urine WBC (Auto) (0-5) /hpf Urine RBC (Auto) (0-4) /hpf U Hyaline Cast (Auto) (0-5) /lpf U Epithel Cells (Auto) (0-5) /lpf Urine Bacteria (Auto) (Negative) Urine Yeast COVID-19 Eval Order Covid19 IDNow atMSDC SARS-CoV-2, RNA, NAAT NEGATIVE (NEGATIVE) Administered Medications Hydromorphone HCl (Hydromorphone Inj 0.5 Mg/0.5 Ml Syr) 0.5 mg IV Q15M PRN PRN Reason: Pain Stop: 12/07/20 16:59 Last Admin: 11/23/20 19:22 Dose: 0.5 mg Documented by: [id number] Admin: 11/23/20 18:28 Dose: 0.5 mg Documented by: [id number] Admin: 11/23/20 17:23 Dose: 0.5 mg Documented by: [id number] Discontinued Medications Ceftriaxone Sodium (Rocephin) 1,000 mg in 50 mls @ 100 mls/hr IV NOW STA Stop: 11/23/20 19:33 Last Admin: 11/23/20 19:23 Dose: 100 mls/hr Documented by: [id number] Ondansetron HCl (Ondansetron Inj 2 Mg/Ml 2 Ml Vial) 4 mg IV NOW STA Stop: 11/23/20 17:01 Last Admin: 11/23/20 17:23 Dose: 4 mg Documented by: [id number] Discharge Plan Visit Data Chief Complaint: Hip Pain Stated Complaint: RIGHT HIP PAIN, ABNORMAL MRI ED Provider: Devin Tavarez Discharge Problem: Hip pain, right, Hydronephrosis, Abnormal MRI, lumbar spine Discharge Instructions Krames/Other Patient Handouts: 2019-nCoV Forms Stand Alone Forms: [facility] [employer] Prescriptions Prescriptions: No Action omeprazole 20 mg Tablet,Delayed Release (Dr/Ec) 20 mg PO QAM RF: 0 atorvastatin 80 mg tablet 80 mg PO QPM RF: 0 aspirin [Aspirin Low-Strength] 81 mg Tablet,Delayed Release (Dr/Ec) 81 mg PO DAILY RF: 0 losartan 25 mg tablet 25 mg PO DAILY RF: 0 Referrals Referrals: James Zheng MD [Primary Care Provider] - Discharge Problem: Hydronephrosis Qualifiers: Hydronephrosis type: unspecified Qualified Code(s): N13.30 - Unspecified hydronephrosis
[2020-11-23] MEDS: HYDROmorphone INJ 0.5 MG/0.5 ML SYR IV PRN ×3 (17:23→19:22)
[2020-11-23 17:26] LABS: Basophils # (auto) 0.01 K/uL (0-0.2); Basophils % (auto) 0.2 %; Eosinophils % (auto) 1.7 %; Hematocrit (blood only) 39.9 % (42-52); Hemoglobin 13.6 g/dL (14.0-18.0); Lymphocytes # (auto) 1.11 K/uL (1.2-3.4); Mean Corpuscular Hemoglobin 31.8 pg (25-34); Mean Corpuscular Hgb Conc 34.1 g/dL (32-36); Mean Corpuscular Volume 93.2 fL (80-100); Mean Platelet Volume 11.3 fL (7.4-10.4); Monocytes # (auto) 0.56 K/uL (0.11-0.59); Monocytes % (auto) 9.6 %; Neutrophils # (auto) 4.06 K/uL (1.4-6.5); Neutrophils % (auto) 69.5 %; Platelet Count 189 K/uL (130-400); RDW Coefficient of Variation 14.2 % (11.5-14.5); RDW Standard Deviation 48.2 fL (36.4-46.3); Red Blood Count 4.28 M/uL (4.7-6.1); White Blood Count 5.84 K/uL (4.8-10.8)
[2020-11-23 17:45] LABS: Albumin Level 4.1 gm/dl (3.4-5.0); BUN Creatinine Ratio 20.4 (10-20); Calcium 8.7 mg/dl (8.5-10.1); Creatinine Clr Calc Pharmacy 36.7 ml/min; Est GFR (African American) 47.8; Est GFR (Non-African American) 41.2; Potassium 4.3 mmol/L (3.5-5.1)
[2020-11-23 17:56] LABS: Albumin Globulin Ratio 1.5 (0.9-2); Bilirubin,Total 0.6 mg/dl (0.2-1); Globulin 2.7 gm/dl (2.5-4.0); Thyroid Stimulating Hormone 1.45 uIu/ml (0.300-4.500); Total Protein 6.8 gm/dl (6.4-8.2)
--- NOTE | 2020-11-23 18:11 | History & Physical Report ---
Date of Service November 23, 2020 Assessment & Plan (1) Hip pain, right: Pain and assessment mostly consistent with sciatic pain. - Tier pain control- IV tylenol for 24 hours, Hydromorphone for severe pain, Lidoderm patch - Decadron 8mg orally x1 now - PT/OT evaluation - Up and ambulate as needed for pain relief. (2) Abnormal MRI, lumbar spine: - As per HPI report, further evaluation needed. - IV and oral con and non con of abdomen and pelvis - PET scan outpatient if needed 1liter LR prior to contrasted CT scan and 1 Liter LR at 125 ml an hour after Contrasted CT scan. (3) Urinary retention: This has been chronic following his Colectomy - Asymptomatic cystitis with UA, await cultures, this is likely containment and will likely show effects from chronic self cath. - No fevers, no WBC elevation. (4) Hydronephrosis: Chronic with no obstruction- Follow kidney function (5) Colostomy care: Continue support - No sign of incarceration with hernia and ostomy, no pain - Ostomy output has been normal for the patient and has never had any complications or issues with output. (6) CKD (chronic kidney disease), stage III: IV hydrate as above. - avoid nephrotoxic agents - Avoid NSAID History of Present Illness Primary Care Provider: James Zheng MD 75 YOM presents to the emergency department today from his primary care physician for intractable hip pain. Patient has significant oncological history as follows: In 2005 the patient presented with small caliber stools which prompted further evaluation. 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 He underwent preoperative 5-FU infusional chemotherapy combined with radiation therapy. Abdominal perineal resection and resection of the liver lesion at [facility] in April of 2007. Post APR he underwent FOLFIRI and Avastin. He only received 3 cycles of Avastin due to recurrent perineal ulcerations. Last chemotherapy was in 2007, PET/CT scan on October 2013 without evidence of metastatic disease and continued hydronephrosis for which he is followed by urology, he had a cystoscopy in 2009 that showed hydroureteronephrosis but no obstruction. He received a colostomy for his rectal cancer. November 12 the patient had a lumbar spine MRI performed for this right hip/sciatica pain. Which reveled the following "There is a faintly T2 hyperintense, T1 hypointense enhancing 12 mm lesion within the L1 vertebral body. This is new from the prior studies and may represent a metastatic focus. Follow-up nuclear medicine bone scan is recommended for further evaluation." The pain was 10/10 on arrival to the ER per the patient. He says that the pain has been constant and is sharp in nature, it starts posterior right buttocks and extends down back of his thigh and terminates just above the knee. Patient has tried Naprosyn at home and his inversion table. The pain is reduced with getting up and moving around as well as lying on his abdomen. It is aggravated by sitting and lying on his side. This pain has effected his ability to sleep or rest. Patient does appear fatigued on exam. Patient is admitted for observation for pain control, further imaging of spine, hip and pelvis. In the emergency department the patient has received Hydromorphone 0.5mg x2 doses, and Zofran. Patient also has been self catheterizing since 2006 following his colostomy creation. Allergies Allergy/AdvReac Type Severity Reaction Status Date / Time No Known Allergies Allergy Verified 01/18/19 06:29 Home Medications Medication Instructions Recorded Confirmed Type omeprazole 20 mg PO QAM 12/22/18 11/23/20 History aspirin [Aspirin Low-Strength] 81 mg PO DAILY 11/23/20 11/23/20 History atorvastatin 80 mg PO QPM 11/23/20 11/23/20 History losartan 25 mg PO DAILY 11/23/20 11/23/20 History Past Med/Surg History Medical History (Updated 11/23/20 @ 19:36 by [email or web address] Ragsdale) Borderline diabetes Cancer COLON LIVER CKD (chronic kidney disease) GERD (gastroesophageal reflux disease) Hyperlipidemia Surgical History H/O eye surgery METAL REMOVED H/O resection of liver RADIATION AND CANCER REMOVED History of bowel resection History of cataract surgery RT History of colonoscopy History of colostomy History of herniorrhaphy History of tooth extraction Social History Smoking Status: Never smoker Second Hand Exposure: No; Hx Alcohol Use: No Hx Substance Use: No Preferred Language: Luxembourgish Communication Ability: Effective Film Masker Required: No Beliefs That Will Affect Care: None Current Living Situation: Spouse Feels Safe at Home: Yes Assistive Devices: Denture - Upper, Denture - Lower and Glasses Review of Systems Review of Systems: REVIEW OF SYSTEMS: Constitutional: No fever, sweats or chills Eyes: No diplopia, no worsening or blurred vision ENT: normal hearing, no trouble swallowing Respiratory: No cough, sputum, dyspnea at rest or on exertion Cardiovascular: No chest pain, tightness or palpitations Abdomen: No pain, nausea, vomiting, diarrhea or constipation Musculoskeletal: Per HPI, chronic back pain Neurologic: No weakness, numbness/tingling, or balance problems Psychiatric: No anxiety or depression Skin: No rash or itch Physical Exam Physical Exam: PHYSICAL EXAM: General: awake, alert, no apparent distress Head: Normocephalic, atraumatic ENT: PERRL, EOMI, no pharyngeal exudate, mucous membranes moist Neuro: AAO x 3, speech clear and appropriate, strength intact bilaterally 5/5, sensation intact and equal all extremities no pronator drift Chest: equal rise and fall of the chest, no accessory muscle use, no heaves or thrills, Clear to auscultation, on room air, Cardiac: Regular rate and rhythm, telemetry reviewed, skin warm dry, cap refill <3 seconds, peripheral pulses +2 no JVD, no murmur, no JVD, no edema GI: NABS x 4 quadrants, soft, nontender to palpation, no rebound, guarding or tenderness : Self cath Extremities: Normal inspection, no peripheral edema or erythema, calfs nontender to palpation MSK: pain at piriformis palpation, no crepitus, no trauma, Full range of motion of bilateral hips, negative straight leg raise bilaterally, abduction and adduction with no change in pain. No radiculopathy or loss in muscle tone. Psych: Normal mood and affect Skin: no rash or erythema Results & Data Results & Data ([facility]) Vital Signs (Past 12 Hours) Vital Signs Temp Pulse Pulse Resp BP BP Pulse Ox 11/23/20 17:15 45 L 46 L 20 155/74 H 97 11/23/20 16:18 36.6 C 54 L 20 111/78 97 Laboratory Results Abnormal lab results 11/23/20 11/23/20 11/23/20 Range/Units 17:19 17:19 18:19 RBC 4.28 L (4.7-6.1) M/uL Hgb 13.6 L (14.0-18.0) g/dL Hct 39.9 L (42-52) % RDW Std Deviation 48.2 H (36.4-46.3) fL MPV 11.3 H (7.4-10.4) fL Lymph # (Auto) 1.11 L (1.2-3.4) K/uL Chloride 112 H (98-107) mmol/L BUN 33 H (7-18) mg/dl Creatinine 1.60 H (0.6-1.4) mg/dl BUN/Creatinine Ratio 20.4 H (10-20) Glucose 139 H (70-99) mg/dl Alkaline Phosphatase 151 H (45-117) U/L Urine Appearance Cloudy A (Clear) Urine Protein Trace H (Negative) Urine Glucose (UA) Trace H (Negative) Urine Blood 1+ H (Negative) Urine Nitrite Positive A (Negative) Ur Leukocyte Esterase 3+ H (Negative) Urine WBC (Auto) >30 H (0-5) /hpf Diagnostic Findings CT SCAN OF THE PELVIS WITHOUT IV CONTRAST CLINICAL HISTORY: Atraumatic right hip pain. COMPARISON STUDY: PET/CT dated 10/23/2013. TECHNIQUE: CT scan of the bony pelvis is performed from the pelvic inlet to the proximal femora. Images are reviewed in the axial, sagittal, and coronal planes. IV contrast was not administered for this examination. A dose lowering technique was utilized adhering to the principles of ALARA. CT DOSE: 465.38 mGy.cm FINDINGS: The skeletal structures are osteopenic. There is no evidence of fracture involving the hips or bony pelvis. There is no evidence of avascular necrosis of the femoral heads. Mild degenerative joint space narrowing is present in both hips. There is minimal degenerative sclerosis of the sacroiliac joints. No lytic or blastic lesion is seen. The regional musculature is normal and symmetric. Findings suggest pelvic floor prolapse. The prostate gland appears mildly enlarged and heterogeneous. The bladder wall is thickened and trabeculated suggesting chronic outlet obstruction. There are small bladder diverticula. There is no pelvic sidewall or inguinal lymphadenopathy. There is postoperative change from proctocolectomy with left lower quadrant colostomy. A parastomal hernia contains a nonobstructed segment of colon. A left inguinal hernia contains a nonobstructed loop of small bowel. A normal appendix is seen in the right lower quadrant. There is a fat-containing umbilical hernia, as well as evidence of previous right inguinal herniorrhaphy. There is no free fluid in the pelvis. Atherosclerotic calcification is seen within the distal abdominal aorta and iliac arteries. The ureters are dilated bilaterally. There is a 2.9 x 1.8 cm focus of irregular soft tissue thickening in the right posterior pelvis seen on image #64. IMPRESSION: 1. No acute bony abnormality is seen involving the hips or pelvis. 2. Status post proctocolectomy with left lower quadrant colostomy. There is no evidence of bowel obstruction. 3. There is a parastomal hernia containing a segment of colon. 4. A left inguinal hernia contains a nonobstructed segment of small bowel. 5. There is distal ureteral dilatation. 6. There is a 2.9 cm focus of irregular soft tissue thickening in the right posterior pelvis which represents a change from the 10/23/2013 PET examination. This is nonmasslike and may represent chronic fibrosis/scarring. Neoplasm is considered less likely. Attention at follow-up is recommended. 7. Additional findings as above. Contrasted study pending. Medications Administered Hydromorphone HCl (Hydromorphone Inj 0.5 Mg/0.5 Ml Syr) 0.5 mg IV Q15M PRN PRN Reason: Pain Stop: 12/07/20 16:59 Last Admin: 11/23/20 19:22 Dose: 0.5 mg Documented by: [id number] Admin: 11/23/20 18:28 Dose: 0.5 mg Documented by: [id number] Admin: 11/23/20 17:23 Dose: 0.5 mg Documented by: [id number] Ceftriaxone Sodium (Rocephin) 1,000 mg in 50 mls @ 100 mls/hr IV NOW STA Stop: 11/23/20 19:33 Last Admin: 11/23/20 19:23 Dose: 100 mls/hr Documented by: [id number] Discontinued Medications Ondansetron HCl (Ondansetron Inj 2 Mg/Ml 2 Ml Vial) 4 mg IV NOW STA Stop: 11/23/20 17:01 Last Admin: 11/23/20 17:23 Dose: 4 mg Documented by: [id number] Supervising Physician Co-Signing Physician Notes Patient was seen and examined independently I discussed the case with David SHUKLA I reviewed pertinent past medical social family history and also the plan of care and agree with the plan of care. Pt presented upon referal of pcp, has leg pain on right posterior leg from ischial tuberosity to post knee, not in area of concern in L1 vertebrae, pt has history of rectal cancer treated with chemo and XRT, he will have CT to eval for other mets, have his sciatica treated with one dose of steroids, and tylenol, opiates and topical lidoderm. Pt is comfortable after being medicated for pain. Physical exam is with strength and sensation intact and negative slr Any exceptions will be noted below PG Care Time/CCT Total # of Minutes Spent Total Time Spent with Patient: Total time spent is greater than 50% in coordination of care (as documented) at patient's floor/unit and/or counseling patient: Coding Level of Care Code 49367 OBS Care - Level 3 Diagnoses Hip pain, right M25.551 Abnormal MRI, lumbar spine R93.7 Urinary retention R33.9 Hydronephrosis N13.30 Hydronephrosis type: unspecified Colostomy care Z43.3 CKD (chronic kidney disease), stage III N18.30 (1) Hydronephrosis Hydronephrosis type: unspecified Qualified Code(s): N13.30 - Unspecified hydronephrosis
--- NOTE | 2020-11-23 18:20 | CT Scan Report ---
CT SCAN OF THE PELVIS WITHOUT IV CONTRAST CLINICAL HISTORY: Atraumatic right hip pain. COMPARISON STUDY: PET/CT dated 10/23/2013. TECHNIQUE: CT scan of the bony pelvis is performed from the pelvic inlet to the proximal femora. Miladis ges are reviewed in the axial, sagittal, and coronal planes. IV contrast was not administered for thi s examination. A dose lowering technique was utilized adhering to the principles of ALARA. CT DOSE: 465.38 mGy.cm FINDINGS: The skeletal structures are osteopenic. There is no evidence of fracture involving the hips or bony p león. There is no evidence of avascular necrosis of the femoral heads. Mild degenerative joint space narrowing is present in both hips. There is minimal degenerative sclerosis of the sacroiliac joints. No lytic or blastic lesion is seen. The regional musculature is normal and symmetric. Findings suggest pelvic floor prolapse. The prostate gland appears mildly enlarged and heterogeneous. The bladder wall is thickened and trabeculated suggesting chronic outlet obstruction. There are smal l bladder diverticula. There is no pelvic sidewall or inguinal lymphadenopathy. There is postoperativ e change from proctocolectomy with left lower quadrant colostomy. A parastomal hernia contains a nono bstructed segment of colon. A left inguinal hernia contains a nonobstructed loop of small bowel. A no rmal appendix is seen in the right lower quadrant. There is a fat-containing umbilical hernia, as wel l as evidence of previous right inguinal herniorrhaphy. There is no free fluid in the pelvis. Atheros clerotic calcification is seen within the distal abdominal aorta and iliac arteries. The ureters are dilated bilaterally. There is a 2.9 x 1.8 cm focus of irregular soft tissue thickening in the right p osterior pelvis seen on image #64. IMPRESSION: 1. No acute bony abnormality is seen involving the hips or pelvis. 2. Status post proctocolectomy with left lower quadrant colostomy. There is no evidence of bowel obst ruction. 3. There is a parastomal hernia containing a segment of colon. 4. A left inguinal hernia contains a nonobstructed segment of small bowel. 5. There is distal ureteral dilatation. 6. There is a 2.9 cm focus of irregular soft tissue thickening in the right posterior pelvis which re presents a change from the 10/23/2013 PET examination. This is nonmasslike and may represent chronic f ibrosis/scarring. Neoplasm is considered less likely. Attention at follow-up is recommended. 7. Additional findings as above. ACT 112: Negative or not required by law. Electronically signed by: Pieter Wilson M.D. 11/23/2020 6:19 PM
[2020-11-23 18:32] LABS: Appearance Urine Cloudy (Clear); Bacteria Urine Automated Negative (Negative); Bilirubin Urine Negative (Negative); Blood Urine 1+ (Negative); Cast Urine Automated 0 /lpf (0-5); Color Urine Yellow; Epithelial Cell Urine Auto 0-5 /lpf (0-5); Glucose Urine UA Trace (Negative); Ketones Urine Negative (Negative); Leukocyte Esterase Urine 3+ (Negative); Nitrite Urine Positive (Negative); Protein Urine Trace (Negative); RBC Urine Automated 0-4 /hpf (0-4); Specific Gravity Urine 1.012 (1.000-1.030); Urobilinogen Urine Negative (Negative); WBC Urine Automated >30 /hpf (0-5); pH Urine 5.5 (4.5-7.5)
[2020-11-23] MEDS ORDERED: cefTRIAXone SODIUM 1,000 MG/50 ML BAG IV STA (19:04)
[2020-11-23] MEDS ORDERED: IOVERSOL 100ml IV ONE (19:54)
--- NOTE | 2020-11-23 20:17 | CT Scan Report ---
CT SCAN OF THE ABDOMEN AND PELVIS WITH IV CONTRAST CLINICAL HISTORY: Rectal carcinoma. Metastatic survey. Right-sided sciatica. COMPARISON STUDY: PET/CT dated 10/23/2013. Pelvic CT dated 11/23/2020. MRI of lumbar spine dated 2020. TECHNIQUE: Following the IV administration of 50 cc of Optiray 320, CT scan of the abdomen and pelvi s is performed from the lung bases to the proximal femora. Images are reviewed in the axial, sagittal , and coronal planes. IV contrast was administered without complication. Oral contrast was utilized. A dose lowering technique was utilized adhering to the principles of ALARA. CT DOSE: 440.03 mGy.cm FINDINGS: Lung bases: The heart is normal in size and without pericardial effusion. Calcified granulomas are no jaime in the right middle lobe. The lung bases are otherwise clear noting bibasilar scarring/atelectasi s. There is a small hiatal hernia. Liver: The contrast-enhanced liver is normal in size, contour, and attenuation. There is no intrahepa tic biliary ductal dilatation. The hepatic veins and portal veins are patent. There is postoperative change from right hepatic lobe resection. Gallbladder: Surgically absent. Spleen: Normal in size and attenuation. Pancreas: Mildly atrophic and grossly unremarkable. Adrenal glands: Unremarkable. Kidneys: The contrast enhanced kidneys are atrophic. There is severe bilateral hydroureteronephrosis, which was also seen on the 2013 PET/CT. The kidneys enhance symmetrically. Foci of cortical scarring are noted in the left lower pole. Abdominal vasculature: The abdominal aorta is normal in course and caliber noting moderate to advance d atherosclerotic calcification. Bowel: There is postoperative change from proctocolectomy with left lower quadrant colostomy. Parasto mal hernia contains a nonobstructed segment of colon. No bowel obstruction is seen. Enteric contrast reaches the distal small bowel. A loop of small bowel is contained within a left inguinal hernia. The appendix is well-visualized and normal. Peritoneum: There is no intraperitoneal free air or abdominal ascites. There is a fat-containing umbi lical hernia. Lymphadenopathy: None. Pelvic viscera: Findings suggest pelvic floor prolapse. The prostate gland appears enlarged and heter ogeneous. The bladder wall is thickened and irregular indicating chronic outlet obstruction. There ar e small bladder diverticula. There is evidence of previous right inguinal herniorrhaphy. A left ingui nal hernia contains a nonobstructed loop of small bowel. A focus of irregular soft tissue thickening in the right posterior pelvis is seen on image #326. This measures approximately 3 x 1.8 cm as seen o n image #326. Skeletal structures: The skeletal structures are osteopenic. No lytic or blastic lesions are seen. Th e lesion questioned on the recent lumbar spine MRI likely represents a small hemangioma. IMPRESSION: 1. There are no acute infectious or inflammatory findings in the abdomen or pelvis. 2. There is no evidence of metastatic disease in the abdomen or pelvis. 3. The lesion identified within the body of L1 by MRI likely represents a small hemangioma. No lytic or blastic bony lesions are identified. 4. There is postoperative change from proctocolectomy with left lower quadrant colostomy as well as r ight lobe hepatic resection. No bowel obstruction is seen. 5. A parastomal hernia contains a nonobstructed segment of colon. 6. A left inguinal hernia contains a nonobstructed loop of small bowel. 7. There is an approximately 3 cm focus of irregular soft tissue thickening identified in the right p osterior pelvis, which is new from the 2014 examination. This is nonmasslike, and favors fibrosis/sca rring. Neoplasm is considered less likely and attention at follow-up is recommended. This is located along the course of the sciatic nerve and may explain the patient's symptoms of right-sided sciatica. 8. There is severe bilateral hydroureteronephrosis. This was also present on the 2014 PET examination . 9. Additional findings as above. ACT 112: Negative or not required by law. Electronically signed by: Pieter Wilson M.D. 11/23/2020 8:16 PM
[2020-11-23] MEDS ORDERED: ACETAMINOPHEN 1000 MG/100 ML IV IV PRN (20:47)
[2020-11-23] MEDS ORDERED: LACTATED RINGER'S 1,000 ML IV ONE (20:47)
[2020-11-23] MEDS ORDERED: dexAMETHasone 4 MG TAB PO ONE (21:00)
[2020-11-23] MEDS: ATORVASTATIN 40 MG TAB PO SCH (21:46)
[2020-11-23] MEDS: LIDOCAINE 5% 1 PATCH TD SCH (21:47)
[2020-11-23] MEDS: HEPARIN SOD 5,000 UNIT/0.5 ML VIAL SQ SCH (21:47)
[2020-11-23] MEDS: LACTATED RINGER'S 1,000 ML IV PRN (23:09)
[2020-11-24] MEDS: HEPARIN SOD 5,000 UNIT/0.5 ML VIAL SQ SCH ×3 (05:19→21:08)
[2020-11-24] MEDS: LACTATED RINGER'S 1,000 ML IV PRN (05:22)
[2020-11-24] MEDS: HYDROmorphone INJ 0.5 MG/0.5 ML SYR IV PRN ×4 (07:14→17:10)
[2020-11-24] MEDS: PANTOprazole 40 MG TAB PO SCH (08:56)
[2020-11-24] MEDS: LOSARTAN POTASSIUM 25 MG TAB PO SCH (08:56)
[2020-11-24] MEDS: ASPIRIN 81 MG ECTAB PO SCH (08:57)
[2020-11-24] MEDS: ACETAMINOPHEN 500 MG TAB PO SCH ×2 (10:38→21:08)
[2020-11-24] MEDS: dexAMETHasone 4 MG in SYRINGE 0 ML IV SCH ×2 (10:39→18:41)
[2020-11-24] MEDS: LACTATED RINGER'S 1,000 ML IV SCH ×2 (10:44→18:40)
--- NOTE | 2020-11-24 13:03 | Hospitalist Progress Note ---
Date of Service November 24, 2020 Assessment & Plan (1) Radicular pain of right lower extremity: L1 lesion on MRI lumbar spine is in the vertebral body and not causing any impingement on any nerve. CT of pelvis with 3cm lesion on right - fibrosis/scar tissue?? This soft tissue mass is abutting the sciatic nerve. The latter is the likely cause of his pain. Spoke with ortho-spine -- plan for MRI of pelvis w/ and w/o contrast. In meantime, for pain control -- * start decadron 4mg IV TID * start gabapentin 100mg TID * dilaudid - increase to 0.5mg q3h prn * tylenol 1gm TID scheduled * baclofen 5mg prn -- quite a bit of spam on examination * PT, OT as tolerated Results of pelvic MRI will dictate plan of care/Rx -- radiation? surgery? other? (2) Abnormal CT scan, pelvis: see discussion above plan - MRI pelvis, w/ and w/o contrast (3) Rectal adenocarcinoma: s/p surgery, chemo, xrt in past. colostomy status. check CEA in am given CT pelvis findings. (4) Colostomy status: (5) Prediabetes: with steroids his BSGs will rise. change diet to DM diet and check a1c. may need insulin coverage. (6) CKD (chronic kidney disease), stage III: Cr today 1.6 hydrate given the MRI contrast BMP am (7) Hydronephrosis: chronic based on imaging 2nd neurogenic bladder?? (8) Neurogenic bladder: cont self cathing 4x's a day as he does at home (9) DVT prophylaxis: heparin SC updated pt's by phone updated pt's son-in-law who is a nurse by phone total time today 40 minutes Admission and Anticipated Discharge Date Admission Date: November 23, 2020 Subjective patient with ongoing radicular pain of right leg - starts in posterior right buttocks, travels down posterior right thigh, and ends about the level of the right knee or slightly below. present x 2 months but getting progressively worse. no motor weakness. no RUE involvement. no left sided symptoms. with exception of right leg pain he has otherwise been feeling well. denies weight loss, fevers, anorexia, etc. denies midline lumbar back pain. Review of Systems Constitutional: no fever, no chills, no fatigue and no anorexia Respiratory: no cough and no dyspnea Cardiovascular: no chest pain Gastrointestinal: no abdominal pain Genitourinary: + problem reported (self-caths 4x's each day; w/ cathing sometimes has b/l flank pain ) Musculoskeletal: no joint pain Physical Exam 2 Constitutional: well developed and well nourished; no acute distress and no altered mental status ENMT: external ear and nose normal, oropharynx normal Respiratory: normal respiratory effort, lungs clear to auscultation Cardiovascular: RRR, no murmur, no edema Heart Sounds: normal S1 and normal S2 Vessels: posterior tibial pulses present and dorsalis pedis pulses present; no JVD Gastrointestinal (Abdomen): normal bowel sounds, soft, nontender, no hepatosplenomegaly no flank tenderness to palpation; colostomy with bag, left side of abdomen Musculoskeletal: Spine: + straight leg raise positive (right leg ); no thoracic spinal tenderness and no lumbar spinal tenderness right leg with considerable spasm in gluteus and other buttock muscles Neurologic: deep tendon reflexes 2+ bilaterally, moves all extremities and + focal motor deficit (4-5/5 strength knee extension on right; o/w 5/5 b/l legs/arms) Psychiatric: A+Ox3, euthymic affect Results & Data Results & Data ([facility]) Vital Signs (Past 12 Hours) Vital Signs Temp Pulse Resp BP BP Pulse Ox 11/24/20 08:51 59 L 175/84 H 11/24/20 07:39 36.5 C 51 L 16 154/71 H 96 Laboratory Results BMP -- Cr 1.6 CT pelvis reviewed MRI l-spine reviewed - IMPRESSION: 1. No disc herniations. No significant central canal or neural foraminal narrowing. 2. No fracture or subluxation. 3. There is a faintly T2 hyperintense, T1 hypointense enhancing 12 mm lesion within the L1 vertebral body. This is new from the prior studies and may represent a metastatic focus. Follow-up nuclear medicine bone scan is recommen ded for further evaluation. 4. Chronic moderate to severe right-sided hydronephrosis. Improvement in the mild left-sided hydronephrosis. PG Care Time/CCT Total # of Minutes Spent Total Time Spent with Patient: Total time spent is greater than 50% in coordination of care (as documented) at patient's floor/unit and/or counseling patient: Coding Level of Care Code 58171 Subseq Hosp Care Lvl 3 Diagnoses Radicular pain of right lower extremity M54.[address] scan, pelvis R93.5 Rectal adenocarcinoma C20 Colostomy status Z93.3 Prediabetes R73.03 CKD (chronic kidney disease), stage III N18.32 Chronic kidney disease stage 3 subtype: stage 3b (GFR 30-44) Hydronephrosis N13.30 Hydronephrosis type: unspecified Neurogenic bladder N31.9 DVT prophylaxis Z29.9 (1) CKD (chronic kidney disease), stage III Chronic kidney disease stage 3 subtype: stage 3b (GFR 30-44) Qualified Code(s): N18.32 - Chronic kidney disease, stage 3b (2) Hydronephrosis Hydronephrosis type: unspecified Qualified Code(s): N13.30 - Unspecified hydronephrosis
[2020-11-24] MEDS: BACLOFEN 10 MG TAB PO PRN (13:15)
[2020-11-24] MEDS: GABAPENTIN 100 MG CAP PO SCH ×2 (14:31→21:08)
[2020-11-24] MEDS: ATORVASTATIN 40 MG TAB PO SCH (21:07)
[2020-11-24] MEDS ORDERED: GADOBUTROL 65ML VIAL IV ONE (23:27)
[2020-11-24] MEDS: LIDOCAINE 5% 1 PATCH TD SCH (23:39)
[2020-11-25] MEDS: dexAMETHasone 4 MG in SYRINGE 0 ML IV SCH ×3 (03:42→20:37)
[2020-11-25] MEDS: HEPARIN SOD 5,000 UNIT/0.5 ML VIAL SQ SCH ×3 (05:29→20:35)
[2020-11-25 06:29] LABS: BUN Creatinine Ratio 20.9 (10-20); Calcium 9.1 mg/dl (8.5-10.1); Creatinine Clr Calc Pharmacy 39.2 ml/min; Est GFR (African American) 51.7; Est GFR (Non-African American) 44.6; Potassium 4.9 mmol/L (3.5-5.1)
[2020-11-25] MEDS: HYDROmorphone INJ 0.5 MG/0.5 ML SYR IV PRN ×2 (07:32→10:45)
[2020-11-25] MEDS: ACETAMINOPHEN 500 MG TAB PO SCH ×3 (08:39→20:35)
[2020-11-25] MEDS: ASPIRIN 81 MG ECTAB PO SCH (08:39)
[2020-11-25] MEDS: GABAPENTIN 100 MG CAP PO SCH ×3 (08:39→20:34)
[2020-11-25] MEDS: LOSARTAN POTASSIUM 25 MG TAB PO SCH (08:39)
[2020-11-25] MEDS: PANTOprazole 40 MG TAB PO SCH (08:41)
[2020-11-25] MEDS: BACLOFEN 10 MG TAB PO PRN (08:58)
[2020-11-25 09:36] LABS: Estimated Average Glucose 134 mg/dl; Hemoglobin A1C 6.3 % (4.5-5.6)
--- NOTE | 2020-11-25 10:00 | Magnetic Resonance Report ---
MRI OF THE PELVIS WITH AND WITHOUT CONTRAST CLINICAL HISTORY: Mass v fibrosis/scar the abutting right sciatic nerve. History of rectal cancer. COMPARISON STUDY: MRI of the abdomen and pelvis March 09, 2007. CT of the abdomen and pelvis November 23, 2020. PET/CT October 23, 2013. TECHNIQUE: Utilizing 1.5 Arlen magnet and dedicated coil, multiplanar, multi echo imaging of the pelv is was performed pre and postcontrast administration. Intravenous injection of 7.5 cc of Gadavist was uneventful. FINDINGS: Postsurgical findings consistent with distal colectomy and proctectomy are noted with left lower quadrant ostomy and parastomal hernia. These findings are better depicted on CT of November 23, 2020. Bladder wall irregularity is noted. This is chronic. Bilateral hydronephrosis is better depict ed on the CT exam. T1 hypointensity within the medial right iliac bone is unchanged as MRI of March 09, 2007. This is degenerative. There is no suspicious marrow replacement within the pelvis and hips. Note is made of a 3.7 x 2.1 x 3.5 cm irregular enhancing focus within the posterior right hemipelvis shown on axial image 27 of 52 and coronal image 23 of 35. This corresponds to the finding on CT of [facility] 2020. This is new since MRI of October 23, 2013. This extends along the course of the righ t sciatic nerve. This focus is T2 hypointense. No additional suspicious foci are identified within th e pelvis. Note is made of increased T2 signal and mild enhancement within the right adductor musculat ure. There is also slight increased T2 signal and enhancement within the right pelvic sidewall and pr oximal thigh musculature. No fluid collection is identified. There is no inguinal lymphadenopathy. IMPRESSION: 1. 3.7 x 2.1 x 3.5 cm irregular enhancing focus within the posterior right hemipelvis which correspon ds to the finding on CT of November 23, 2020. This is new since PET/CT of October 23, 2013. This is in close proximity to the right sciatic nerve and could account for the patient's symptoms. The MRI a ppearance is nonspecific and this may reflect tumor recurrence. However, fibrosis or scarring could a ppear similar. A PET/CT may be of benefit in further characterization. 2. Mild increased intramuscular signal and enhancement within the right hemipelvis and proximal right thigh, as described above. While nonspecific, this favors post treatment change. ACT 112: Negative or not required by law. Electronically signed by: Favio Randall M.D. 11/25/2020 9:59 AM
[2020-11-25] MEDS: POLYETHYLENE (MIRALAX) 17 GM PACK PO SCH (10:45)
[2020-11-25] MEDS: SENNA 8.6 MG TAB PO SCH (11:18)
[2020-11-25] MEDS ORDERED: DICLOFENAC SOD 1% GEL 100 GM TUBE EXT PRN (14:24)
[2020-11-25] MEDS ORDERED: oxyCODONE HCL IR 5 MG TAB (IMMEDIATE RELEASE) PO PRN (14:24)
--- NOTE | 2020-11-25 17:18 | Consultation ---
Date of Consultation November 25, 2020 Assessment & Plan (1) Abnormal CT scan, pelvis: - Pelvic MRI showed 3.7 x 2.1 x 3.5 cm irregular enhancing focus within the posterior right hemipelvis in close proximity to the right sciatic nerve and could account for the patient's symptoms - this may reflect tumor recurrence, fibrosis or scarring - a PET/CT is scheduled as an outpatient - if FDG avid then may need to be biopsied - will follow as an oupatient - feel free to contact if any questions (2) Rectal adenocarcinoma: - patient has hx of metastatic colon cancer in 2005, s/p cole adjuvant chemoRT followed by surgery - he received chemotherapy until 2007 and has remained stable without evidence of disease - last year it was noted significant increase in CEA level from 2.8 to 7.2 History of Present Illness Reason for Consultation: Hx of colon cancer and new pelvic mass with sciatica Attending Physician: James Arora History of Present Illness 75 y/o male with hx of metastatic colon cancer in 2005 who presents to the emergency department from his primary care physician for intractable hip pain. He received chemotherapy until 2007 and has remained stable without evidence of disease until now. Patient has been experiencing increasing right hip/sciatica pain. In the ED the pain was 10/10 on arrival. He says that the pain has been constant and is sharp in nature, it starts posterior right buttocks and extends down back of his thigh and terminates just above the knee. The pain is reduced with getting up and moving around as well as lying on his abdomen. It is aggravated by sitting and lying on his side. Pelvic MRI today showed 3.7 x 2.1 x 3.5 cm irregular enhancing focus within the posterior right hemipelvis in close proximity to the right sciatic nerve and could account for the patient's symptoms. Patient was seen and examined at bedside. He denies constitutional symptoms. Lab data and imaging studies were reviewed. Allergies Allergy/AdvReac Type Severity Reaction Status Date / Time No Known Allergies Allergy Verified 01/18/19 06:29 Home Medications Medication Instructions Recorded Confirmed Type omeprazole 20 mg PO QAM 12/22/18 11/23/20 History aspirin [Aspirin Low-Strength] 81 mg PO DAILY 11/23/20 11/23/20 History atorvastatin 80 mg PO QPM 11/23/20 11/23/20 History losartan 25 mg PO DAILY 11/23/20 11/23/20 History Patient History Medical History (Updated 11/25/20 @ 07:12 by James Arora) Borderline diabetes Cancer COLON LIVER CKD (chronic kidney disease) GERD (gastroesophageal reflux disease) Hyperlipidemia Surgical History (Updated 11/25/20 @ 07:12 by James Arora) H/O eye surgery METAL REMOVED H/O resection of liver RADIATION AND CANCER REMOVED History of bowel resection History of cataract surgery RT History of colonoscopy History of colostomy History of herniorrhaphy History of tooth extraction Social History Smoking Status: Never smoker Second Hand Exposure: No; Hx Alcohol Use: No Hx Substance Use: No Preferred Language: Bolivian Communication Ability: Effective Tool And [employer]er Required: No Beliefs That Will Affect Care: None Current Living Situation: Spouse Other Information That Helps Us Care for You: No Feels Safe at Home: Yes Safety Concerns: Feels Safe At This Time Assistive Devices: None Review of Systems Review of Systems: Constitutional: Negative for weight loss, night sweats, or fever Eyes: Negative for event change of vision ENT: Negative for epistaxis, nasal discharge, sore throat, or deafness Cardiovascular: Negative for anginal type chest pain, palpitations, dizziness, diaphoresis Respiratory: Negative for new shortness of breath, hemoptysis, or purulent cough Gastrointestinal: Negative for diarrhea, hematemesis, melena, nausea, vomiting, or dyspepsia Integumentary (skin): Negative for rash or jaundice discoloration Genitourinary: Negative for urinary frequency, hematuria, or dysuria Neurological: Negative for weakness, seizure activity, headache, or dizziness. RIGHT HIP/SCIATICA PAIN Lymphatic/Hematologic: Negative for petechiae, bleeding or new adenopathy Musculoskeletal: Negative for new joint or back pain Allergic/Immunologic: Negative for unusual rash or pruritus Physical Exam Physical Exam: Constitutional: Vitals are stable Eyes: Eyes are JUSTINE EOMI without conjunctival erythema or icterus. ENT: External examination was negative for masses. Neck: Negative for masses or palpable thyromegaly. Respiratory: Lung sounds were generally clear bilaterally. Cardiovascular: Heart was RRR without significant murmur, gallops or rubs. Gastrointestinal: The abdomen was soft with normal bowel sounds. COLOSTOMY BAG IN SITU Lymphatic system: There was no palpable peripheral lymphadenopathy. Musculoskeletal System: The musculoskeletal system seemed concordant with age. Skin: The skin was negative for jaundice. Neurologic Exam: The exam was negative for any focal findings. Extremities: Negative for edema or erythema Results & Data ([facility]) Vital Signs (Past 12 Hours) Vital Signs Temp Pulse Resp BP BP Pulse Ox 11/25/20 14:54 36.4 C L 56 L 18 166/75 H 95 11/25/20 07:19 36.5 C 48 L 16 161/78 H 96 Laboratory Results BMP -- Cr 1.6 CT pelvis reviewed MRI l-spine reviewed - IMPRESSION: 1. No disc herniations. No significant central canal or neural foraminal narrowing. 2. No fracture or subluxation. 3. There is a faintly T2 hyperintense, T1 hypointense enhancing 12 mm lesion within the L1 vertebral body. This is new from the prior studies and may represent a metastatic focus. Follow-up nuclear medicine bone scan is recommended for further evaluation. 4. Chronic moderate to severe right-sided hydronephrosis. Improvement in the mild left-sided hydronephrosis. Diagnostic Findings CT SCAN OF THE PELVIS WITHOUT IV CONTRAST CLINICAL HISTORY: Atraumatic right hip pain. COMPARISON STUDY: PET/CT dated 10/23/2013. TECHNIQUE: CT scan of the bony pelvis is performed from the pelvic inlet to the proximal femora. Images are reviewed in the axial, sagittal, and coronal planes. IV contrast was not administered for this examination. A dose lowering technique was utilized adhering to the principles of ALARA. CT DOSE: 465.38 mGy.cm FINDINGS: The skeletal structures are osteopenic. There is no evidence of fracture involving the hips or bony pelvis. There is no evidence of avascular necrosis of the femoral heads. Mild degenerative joint space narrowing is present in both hips. There is minimal degenerative sclerosis of the sacroiliac joints. No lytic or blastic lesion is seen. The regional musculature is normal and symmetric. Findings suggest pelvic floor prolapse. The prostate gland appears mildly enlarged and heterogeneous. The bladder wall is thickened and trabeculated guerra ggesting chronic outlet obstruction. There are small bladder diverticula. There is no pelvic sidewall or inguinal lymphadenopathy. There is postoperative change from proctocolectomy with left lower quadrant colostomy. A parastomal hernia contains a nonobstructed segment of colon. A left inguinal hernia contains a nonobstructed loop of small bowel. A normal appendix is seen in the right lower quadrant. There is a fat-containing umbilical hernia, as well as evidence of previous right inguinal herniorrhaphy. There is no free fluid in the pelvis. Atherosclerotic calcification is seen within the distal abdominal aorta and iliac arteries. The ureters are dilated bilaterally. There is a 2.9 x 1.8 cm focus of irregular soft tissue thickening in the right posterior pelvis seen on image #64. IMPRESSION: 1. No acute bony abnormality is seen involving the hips or pelvis. 2. Status post proctocolectomy with left lower quadrant colostomy. There is no evidence of bowel obstruction. 3. There is a parastomal hernia containing a segment of colon. 4. A left inguinal hernia contains a nonobstructed segment of small bowel. 5. There is distal ureteral dilatation. 6. There is a 2.9 cm focus of irregular soft tissue thickening in the right posterior pelvis which represents a change from the 10/23/2013 PET examination. This is nonmasslike and may represent chronic fibrosis/scarring. Neoplasm is c onsidered less likely. Attention at follow-up is recommended. 7. Additional findings as above. Contrasted study pending.
--- NOTE | 2020-11-25 18:40 | Hospitalist Progress Note ---
Date of Service November 25, 2020 Assessment & Plan (1) Radicular pain of right lower extremity: L1 lesion on MRI lumbar spine is in the vertebral body and not causing any impingement on any nerve. PET/CT will tell us if this is recurrent malignancy/metastatic disease but most recent imaging suggests it is likely a hemangioma. CT of pelvis with 3cm lesion on right - fibrosis/scar tissue vs metastatic deposit. This soft tissue mass is abutting the sciatic nerve. This is the likely cause of his pain. MRI pelvis confirms CT pelvis findings. * cont decadron 4mg but lower to BID dosing * increase gabapentin to 200mg TID * cont dilaudid but wean off by tomorrow * start oxycodone w/ hopes this will hold his pain in caden of dilaudid * cont tylenol 1gm TID scheduled * cont baclofen 5mg prn * PT, OT as tolerated Heme/onc consult ordered. (2) Abnormal CT scan, pelvis: see discussion above concern for recurrent rectal ca - metastatin deposit in pelvis pushing on sciatic nerve likely PET/CT care of cancer center if + then will need biopsy (3) Rectal adenocarcinoma: s/p surgery, chemo, xrt in past. colostomy status. repeat CEA noted today. saw Dr Posada in summer 2019. at that time declined work-up but patient now willing to do what it takes to get back on track. (4) Colostomy status: (5) Prediabetes: cont DM diet. a1c noted. control satisfactory. (6) CKD (chronic kidney disease), stage III: Cr today 1.5 stable at baseline (7) Hydronephrosis: chronic based on imaging 2nd neurogenic bladder?? (8) Neurogenic bladder: cont self cathing 4x's a day as he does at home urine cx growing possible bacteria but not having UTI symptoms defer on abx for now (9) DVT prophylaxis: heparin SC updated pt's by phone during rounds today updated pt's son-in-law yesterday progressing Admission and Anticipated Discharge Date Admission Date: November 24, 2020 Subjective overall pain is improving. he is more comfortable. still with right buttock pain - and some right leg pain - but improving. eating well. no new complaints. pt's was on phone during my rounds - I gave her extensive update. I spoke with heme/onc -- they will consult and likely perform PET/CT after d/c to see if soft tissue mass is cancern vs scar tissue. Review of Systems Constitutional: no fever, no chills, no fatigue and no anorexia Respiratory: no cough and no dyspnea Cardiovascular: no chest pain Physical Exam Constitutional: well developed and well nourished; no acute distress and no altered mental status ENMT: external ear and nose normal, oropharynx normal Respiratory: normal respiratory effort, lungs clear to auscultation Cardiovascular: RRR, no murmur, no edema Heart Sounds: normal S1 and normal S2 Vessels: posterior tibial pulses present and dorsalis pedis pulses present; no JVD Gastrointestinal (Abdomen): normal bowel sounds, soft, nontender, no hepatosplenomegaly colostomy, left abdomen Musculoskeletal: right leg with less muscle spasm today with passive ROM and less pain with passive ROM Psychiatric: Orientation: alert and oriented x 3 tearful at times talking about possiblity that a recurrent cancer deposit is pushing on sciatic nerve Results & Data Results & Data ([facility]) Vital Signs (Past 12 Hours) Vital Signs Temp Pulse Resp BP BP Pulse Ox 11/25/20 14:54 36.4 C L 56 L 18 166/75 H 95 11/25/20 07:19 36.5 C 48 L 16 161/78 H 96 Laboratory Results Laboratory Results - last 24 hr 11/25/20 11/25/20 11/25/20 05:43 05:43 05:47 Sodium 141 Potassium 4.9 Chloride 111 H Carbon Dioxide 25 Anion Gap 5.0 BUN 31 H Creatinine 1.50 H Est Cr Clr Drug Dosing 39.2 Est GFR ( Amer) 51.7 Est GFR (Non-Af Amer) 44.6 BUN/Creatinine Ratio 20.9 H Glucose 173 H POC Glucose Estimat Average Glucose 134 Hemoglobin A1c 6.3 H Calcium 9.1 Carcinoembryonic Ag 5.6 H 11/25/20 08:03 Sodium Potassium Chloride Carbon Dioxide Anion Gap BUN Creatinine Est Cr Clr Drug Dosing Est GFR ( Amer) Est GFR (Non-Af Amer) BUN/Creatinine Ratio Glucose POC Glucose 173 H Estimat Average Glucose Hemoglobin A1c Calcium Carcinoembryonic Ag MRI pelvis findings noted PG Care Time/CCT Total # of Minutes Spent Total Time Spent with Patient: Total time spent is greater than 50% in coordination of care (as documented) at patient's floor/unit and/or counseling patient: Coding Level of Care Code 17389 Subseq Hosp Care Lvl 3 Diagnoses Radicular pain of right lower extremity M54.[address] scan, pelvis R93.5 Rectal adenocarcinoma C20 Colostomy status Z93.3 Prediabetes R73.03 CKD (chronic kidney disease), stage III N18.32 Chronic kidney disease stage 3 subtype: stage 3b (GFR 30-44) Hydronephrosis N13.30 Hydronephrosis type: unspecified Neurogenic bladder N31.9 DVT prophylaxis Z29.9 (1) Hydronephrosis Hydronephrosis type: unspecified Qualified Code(s): N13.30 - Unspecified hydronephrosis (2) CKD (chronic kidney disease), stage III Chronic kidney disease stage 3 subtype: stage 3b (GFR 30-44) Qualified Code(s): N18.32 - Chronic kidney disease, stage 3b
[2020-11-25] MEDS: LIDOCAINE 5% 1 PATCH TD SCH (19:33)
[2020-11-25] MEDS: ATORVASTATIN 40 MG TAB PO SCH (20:34)
[2020-11-26] MEDS: oxyCODONE HCL IR 5 MG TAB (IMMEDIATE RELEASE) PO PRN ×2 (04:14→16:27)
[2020-11-26] MEDS: HEPARIN SOD 5,000 UNIT/0.5 ML VIAL SQ SCH ×2 (05:04→13:11)
[2020-11-26] MEDS: BACLOFEN 10 MG TAB PO PRN (05:10)
[2020-11-26 06:25] LABS: Hematocrit (blood only) 40.6 % (42-52); Hemoglobin 13.9 g/dL (14.0-18.0); Mean Corpuscular Hemoglobin 31.7 pg (25-34); Mean Corpuscular Hgb Conc 34.2 g/dL (32-36); Mean Corpuscular Volume 92.7 fL (80-100); Mean Platelet Volume 11.4 fL (7.4-10.4); Platelet Count 203 K/uL (130-400); RDW Coefficient of Variation 14.2 % (11.5-14.5); RDW Standard Deviation 48.2 fL (36.4-46.3); Red Blood Count 4.38 M/uL (4.7-6.1); White Blood Count 14.91 K/uL (4.8-10.8)
[2020-11-26] MEDS: HYDROmorphone INJ 0.5 MG/0.5 ML SYR IV PRN (08:42)
[2020-11-26] MEDS: ASPIRIN 81 MG ECTAB PO SCH (08:45)
[2020-11-26] MEDS: PANTOprazole 40 MG TAB PO SCH (08:45)
[2020-11-26] MEDS: dexAMETHasone 4 MG in SYRINGE 0 ML IV SCH (08:45)
[2020-11-26] MEDS: GABAPENTIN 100 MG CAP PO SCH ×2 (08:48→13:12)
[2020-11-26] MEDS: POLYETHYLENE (MIRALAX) 17 GM PACK PO SCH (08:48)
[2020-11-26] MEDS: LOSARTAN POTASSIUM 25 MG TAB PO SCH (08:49)
[2020-11-26] MEDS: ACETAMINOPHEN 500 MG TAB PO SCH ×2 (08:51→13:13)
[2020-11-26] MEDS: SENNA 8.6 MG TAB PO SCH (08:51)
--- NOTE | 2020-11-26 15:44 | Discharge Summary ---
Date of Service November 26, 2020 Admission HPI Per Admitting Provider 75 YOM presents to the emergency department today from his primary care physician for intractable hip pain. Patient has significant oncological history as follows: In 2005 the patient presented with small caliber stools which prompted further evaluation. He was found to have a rectal mass which was biopsied and was an adenocarcinoma. He was T3NOM1, mets to liver. He underwent preoperative 5-FU infusional chemotherapy combined with radiation therapy. Abdominal perineal resection and resection of the liver lesion at [facility] in April of 2007. Post APR he underwent FOLFIRI and Avastin. He only received 3 cycles of Avastin due to recurrent perineal ulcerations. Last chemotherapy was in 2007, PET/CT scan on October 2013 without evidence of metastatic disease and continued hydronephrosis for which he is followed by urology, he had a cystoscopy in 2009 that showed hydroureteronephrosis but no obstruction. He received a colostomy for his rectal cancer. November 12 the patient had a lumbar spine MRI performed for this right hip/sciatica pain. Which reveled the following "There is a faintly T2 hyperintense, T1 hypointense enhancing 12 mm lesion within the L1 vertebral body. This is new from the prior studies and may represent a metastatic focus. Follow-up nuclear medicine bone scan is recommended for further evaluation." The pain was 10/10 on arrival to the ER per the patient. He says that the pain has been constant and is sharp in nature, it starts posterior right buttocks and extends down back of his thigh and terminates just above the knee. Patient has tried Naprosyn at home and his inversion table. The pain is reduced with getting up and moving around as well as lying on his abdomen. It is aggravated by sitting and lying on his side. This pain has effected his ability to sleep or rest. Patient does appear fatigued on exam. Patient is admitted for observation for pain control, further imaging of spine, hip and pelvis. In the emergency department the patient has received Hydromorphone 0.5mg x2 doses, and Zofran. Patient also has been self catheterizing since 2006 following his colostomy creation. Discharge Exam Constitutional well developed and well nourished; no acute distress and no altered mental status ENMT external ear and nose normal, oropharynx normal Respiratory normal respiratory effort, lungs clear to auscultation Cardiovascular RRR, no murmur, no edema Heart Sounds: normal S1 and normal S2 Vessels: posterior tibial pulses present and dorsalis pedis pulses present; no JVD Gastrointestinal (Abdomen) normal bowel sounds, soft, nontender, no hepatosplenomegaly Musculoskeletal Spine: + straight leg raise positive (right leg ); no thoracic spinal tenderness and no lumbar spinal tenderness Neurologic deep tendon reflexes 2+ bilaterally, moves all extremities and + focal motor deficit (4-5/5 strength knee extension on right; o/w 5/5 b/l legs/arms) Psychiatric A+Ox3, euthymic affect Orientation: alert and oriented x 3 Discharge Data Allergies Allergy/AdvReac Type Severity Reaction Status Date / Time No Known Allergies Allergy Verified 01/18/19 06:29 Consultations 11/23/20 18:52 ED Decision to Admit Stat 11/25/20 11:17 Consult Oncology Routine Ordered Studies 11/23/20 17:02 CT pelvis wo con Stat 11/23/20 17:59 CT abd pelvis oral and IV con Stat 11/24/20 09:54 MR pelvis wo/w con Routine Hospital Course (1) Radicular pain of right lower extremity: L1 lesion on MRI lumbar spine is in the vertebral body and not causing any impingement on any nerve. PET/CT will tell us if this is recurrent malignancy/metastatic disease but most recent imaging suggests it is likely a hemangioma. CT of pelvis with 3cm lesion on right - fibrosis/scar tissue vs metastatic deposit. This soft tissue mass is abutting the sciatic nerve. This is the likely cause of his pain. MRI pelvis confirms CT pelvis findings. * cont decadron 4mg but lower to BID dosing * increase gabapentin to 200mg TID * cont dilaudid but wean off by tomorrow * start oxycodone w/ hopes this will hold his pain in caden of dilaudid * cont tylenol 1gm TID scheduled * cont baclofen 5mg prn * PT, OT as tolerated Heme/onc consult ordered. (2) Abnormal CT scan, pelvis: see discussion above concern for recurrent rectal ca - metastatin deposit in pelvis pushing on sciatic nerve likely PET/CT care of cancer center if + then will need biopsy (3) Rectal adenocarcinoma: s/p surgery, chemo, xrt in past. colostomy status. repeat CEA noted today. saw Dr Posada in summer 2019. at that time declined work-up but patient now willing to do what it takes to get back on track. (4) Colostomy status: (5) Prediabetes: cont DM diet. a1c noted. control satisfactory. (6) CKD (chronic kidney disease), stage III: Cr today 1.5 stable at baseline (7) Hydronephrosis: chronic based on imaging 2nd neurogenic bladder?? (8) Neurogenic bladder: cont self cathing 4x's a day as he does at home urine cx growing possible bacteria but not having UTI symptoms defer on abx for now (9) DVT prophylaxis: heparin SC updated pt's by phone during rounds today updated pt's son-in-law yesterday progressing Discharge Plan Discharge Items Patient Disposition: Home - Self-Care Reason For Visit: SCIATICA pain, right leg Discharge Diagnosis: Sciatica pain - right leg - due to soft tissue mass pushing on the nerve deep in the pelvis Activity: As commented below Activity Comment: avoid strenuous activities; avoid any activity that worsens your pain Lifting: No more than 10 pounds Bathing: No limitations Driving/Machine Use: No driving a car if you are taking narcotic pain killer/muscle relaxer Non-emergency contact: Primary Care Provider and Specialist Call non-emergency contact if: you have any medication questions, your symptoms worsen, your pain is not controlled, your pain is worsening and you have a fever Follow-up/Referrals: James Zheng MD [Primary Care Provider] - (see Dr Zheng within 5-7 days ) Sriram Mistry MD [Physician] - (keep appointment for PET/CT scan as scheduled ) Diet: Carb Consistent or DM2 Addtl Attending Provider Instructions: Mr Rosas, You were treated for severe right buttock and right leg pain ("sciatica") that was found to be from a 3cm soft tissue mass pushing on the sciatic nerve deep in the pelvis on the right side. It is uncertain what the mass is. It could be scar tissue. It could be more serious (rectal cancer that has returned). The sciatic nerve pain gradually got better with pain meds, muscle relaxers, steroids, and other treatments. Recommendations -- 1. for pain -- * oxycodone 5-10mg (1-2 tabs) every 6 hours as needed * the oxycodone will cause constipation; thus, you may need to take a combination of miralax and/or senna to keep your ostomy output normal * do not drive or drink alcohol while taking oxycodone as it can make you sleepy 2. for muscle pain/muscle relaxation -- * baclofen 5mg up to twice daily as needed * like the oxycodone it can also make you sleepy * no driving while taking baclofen * no drinking alcohol while taking baclofen 3. for muscle pain -- * may use lidoderm patches - up to 3 patches concurrently placed on various areas of the skin -- for 12 hours; then remove for 12 hours * may use [id number] tylenol 1000mg up to 3 times daily as needed/desired * heating pad to buttock and/or leg as desired/needed 4. for inflammation around the sciatic nerve -- take a course of dexamethasone steroid for 7 days starting 11/27/20. Take the steroid with food. The steroid WILL make your sugars go up. Please watch your diet carefully while taking the steroid. 5. for nerve pain -- take gabapentin 300mg three times a day. Take your first dose tonight. A common side effect of this medication is swelling of the ankles. 6. if you notice any foul-smelling urine, bladder pain, or other symptoms of urinary infection please start the doxycycline antibiotic and take for 7 days. Otherwise you can skip the antibiotic. 7. follow-up -- see separate section Return to [facility] if -- * you have fevers over 100 degrees * you develop weakness of the right leg * your pain is not controlled despite taking all of the medications prescribed to you * any other concerns It was my pleasure caring for you! Feel better, Dr Arora Pending Studies at Discharge: No Stand-Alone Forms: My [facility], Smoking Cessation Medications and DC Order Prescriptions: New baclofen 10 mg Tablet 5 mg PO BID PRN (Reason: muscle pain/spasm) Qty: 20 RF: 0 lidocaine 5 % Adhesive Patch,Medicated 3 patch transdermal QAM Qty: 60 RF: 0 dexamethasone 2 mg tablet 2 mg PO DIRECTED Qty: 17 RF: 0 oxycodone 5 mg tablet 5 - 10 mg PO Q6H PRN (Reason: pain) Qty: 30 RF: 0 gabapentin 300 mg capsule 300 mg PO TID Qty: 60 RF: 1 doxycycline hyclate 100 mg capsule 100 mg PO BID PRN (Reason: urinary infection) 7 Days Qty: 14 RF: 0 Continued omeprazole 20 mg Tablet,Delayed Release (Dr/Ec) 20 mg PO QAM RF: 0 atorvastatin 80 mg tablet 80 mg PO QPM RF: 0 losartan 25 mg tablet 25 mg PO DAILY RF: 0 Discontinued aspirin [Aspirin Low-Strength] 81 mg Tablet,Delayed Release (Dr/Ec) 81 mg PO DAILY RF: 0 Discharge Orders: Discharge Order (Routine); Ordered 11/26/20 Ordered By: James Pedroza/Other Patient Handouts: Prediabetes, 5 Steps for Eating Healthier, A1C Admission Data Admit Date/Time: 11/24/20 13:02 Attending Provider: James Arora Admit Provider: Keo Carey Primary Care Provider: James Zheng Other Providers: Keo Carey ; Sriram Mistry Coding Diagnoses Radicular pain of right lower extremity M54.[address] scan, pelvis R93.5 Rectal adenocarcinoma C20 Colostomy status Z93.3 Prediabetes R73.03 CKD (chronic kidney disease), stage III N18.32 Chronic kidney disease stage 3 subtype: stage 3b (GFR 30-44) Hydronephrosis N13.30 Hydronephrosis type: unspecified Neurogenic bladder N31.9 DVT prophylaxis Z29.9
== END 2020-11-26 16:39 | disposition home or self-care (01) ==
LOC: 3N 16:09 → ED 16:09 → SUATTDRO 19:39 → 3N 20:30

== ENCOUNTER 2022-05-27 15:50 | Observation (INO) ==
[2022-05-27] MEDS ORDERED: SODIUM CHLORIDE 0.9% 500 ML IV SCH (16:15)
[2022-05-27] MEDS ORDERED: SODIUM CHLORIDE 0.9% 1000ML 1,000 ML IV SCH (16:15)
--- NOTE | 2022-05-27 16:23 | Emergency Department Note ---
Impression & Plan DKA (diabetic ketoacidosis), Generalized weakness, Hyperglycemia, Tremor ED Provider Note INFORMANT: Patient ED PROVIDER(S): Devin Tavarez MD CHIEF COMPLAINT: Weakness PLAN: Disposition: Admitted Condition: Good Outpatient prescription management: none Referral: None MEDICAL DECISION MAKING: Patient presented because of weakness and falls. Work-up was initiated. He was found to have nonspecific changes on his ECG. He had a slight leukocytosis. There is JUANCHO on chemistry panel. The patient was also found to have mild DKA. He was hydrated. He was started on insulin drip. On reassessment patient was doing better. I discussed the findings with patient and . He will need further management in the hospital. [facility] Patient was evaluated in the ER and admitted for further management. Triage Nursing notes reviewed and agree them. Vital Signs: reviewed and remarkable for no significant abnormalities Differential diagnosis: Infection, dehydration, metabolic abnormality, hypo/hyperglycemia, electrolyte disturbance, anemia, hypoxia, cardiac sources, intracerebral event, toxicologic, neurologic, as well as other pathologies. Diagnostics interpreted by me: ECG: Twelve-lead ECG reveals a sinus bradycardia at 48 bpm. There is incomplete right bundle branch block. Left anterior fascicular block and septal Q waves present. There is a nonspecific ST abnormality in V2. No acute ischemia noted. Cardiac Monitoring: Cardiac monitoring ordered by me: The patient was placed on continuous cardiac monitoring and observed. It revealed a sinus bradycardia at 51 bpm. Imaging studies: Head CT: A noncontrast CT scan of the head was performed and was negative for tumor, fracture, intracranial hemorrhage, or other acute pathology. Chest x-ray. Findings: A chest x-ray was performed and revealed no pneumothorax, effusion, infiltrate, pulmonary edema, free air under the diaphragm, or wide mediastinum. Impression: No acute disease. HPI: The patient is a 76-year-old male with a history of metastatic colon cancer on hospice who presents to the Emergency Room with complaints of weakness and hyperglycemia. This started over several days with the increased weakness, hyperglycemia found today by his . The patient also notes the following associated symptoms, multiple falls, tremors. The patient has found no relieving factors. Current pain is rated as 0/10. Patient is on hospice due to the metastatic cancer. He is pain is controlled by oral medications. states that he had issues with high blood sugars multiple years ago but has been taken off medications for over a decade. He is not currently under going chemotherapy or radiation. Pt denies LOC, headache, fevers, chills, diaphoresis, visual changes, neck pain, chest pain, breathing difficulties, nausea, vomiting, abdominal pain, back pain, melena, hematochezia, urinary symptoms, numbness, injury from fall, lymphadenopathy, rash, or other complaints. ROS: See above HPI for pertinent positives & negatives. A total of 10 systems reviewed and were otherwise negative. PAST MEDICAL HISTORY:See Below , cancer PAST SURGICAL HISTORY:See Below, colostomy FAMILY HISTORY:See Below SOCIAL HISTORY:See Below, HOME MEDICATIONS:See Below ALLERGIES:See Below VITALS:See Below PHYSICAL EXAMINATION: GENERAL: Awake, tired appearing, in no distress HENT: Normocephalic, atraumatic. Oropharynx unremarkable. EYES: Normal conjunctiva. Sclera non-icteric. NECK: Inspection normal. Non-tender. Supple. No nuchal rigidity. FROM. No masses. RESPIRATORY: Clear to auscultation. No wheezes. No rales. Normal respiratory effort. CARDIAC: Normal rate. Normal rhythm. No murmurs. No rubs. Extremities warm and well perfused. Pulses equal. No JVD. GI: Soft, non-distended. Colostomy in the left lower quadrant no tenderness to palpation. No rebound or guarding. No masses. RECTAL: Deferred. MUSCULOSKELETAL: Atraumatic. Chest examination reveals no tenderness. The back is symmetrical on inspection without obvious abnormality. There is no CVA tenderness to palpation. No joint edema. LOWER EXTREMITIES: Calves are equal size bilaterally and non-tender. No edema. No discoloration. NEURO: Normal sensorium. No sensory or motor deficits noted. Mild intention tremor noted in the upper extremities. SKIN: No rash or jaundice noted. 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 EVENT "YEARS AGO" Urinary retention SELF CATH 4X PER DAY Surgical History H/O eye surgery (1979) METAL REMOVED H/O resection of liver (~04/2007) History of bowel resection (~04/2007) History of cataract surgery (2018) Right and Left History of cholecystectomy History of colonoscopy (07/2017) History of colostomy (04/2007) History of herniorrhaphy INGUINIAL History of tooth extraction Port-A-Cath in place (02/04/21) Insertion of Right Subclavian Infusaport(Right) - Sky Madsen MD, FACS Family History Mother , Passed age 98 of natural causes No problems noted. Father , Passed age 88 of "cardiac issues" Prostate cancer, Onset Age: 70 Brother No problems noted. Sister No problems noted. Daughter No problems noted. Son No problems noted. 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 Feels Safe at Home: Yes Safety Concerns: Feels Safe At This Time caffeine: Yes (coke zero ) during the past year weight has: remained stable Dental Care, Regularly: No Assistive Devices: Denture - Upper Allergies Allergies Allergy/AdvReac Type Severity Reaction Status Date / Time No Known Allergies Allergy Verified 02/11/21 14:11 Home Meds Home Medications Medication Instructions Recorded Confirmed dexamethasone 6 mg tablet 6 mg PO DAILY 05/27/22 05/27/22 fentanyl 100 mcg/hr transdermal 05/27/22 patch fentanyl 100 mcg/hr transdermal 1 patch transdermal Q72H pain 05/27/22 05/27/22 patch fentanyl 12 mcg/hr transdermal 1 patch transdermal Q72H pain 05/27/22 05/27/22 patch ibuprofen 600 mg tablet 600 mg PO TID 05/27/22 05/27/22 lorazepam 2 mg/mL oral concentrate See Rx Instructions .Route 05/27/22 05/27/22 .COMPLEX PRN Anxiety morphine concentrate 100 mg/5 mL See Rx Instructions .Route 05/27/22 05/27/22 (20 mg/mL) oral solution .COMPLEX PRN Pain Previous Rx's Medication Instructions Recorded fentanyl 50 mcg/hr transdermal 1 patch transdermal Q72H #10 ea 01/27/21 patch Results & Data (ED) Vital Signs Vital Signs - 24 hr 05/27/22 15:57 05/27/22 16:10 05/27/22 16:21 Temperature 36.3 C L Temperature Source Oral Pulse Rate - Lying 52 L Pulse Rate - Sitting 68 Pulse Rate - Standing 59 L Pulse Rate 60 Pulse Rate [Right Radial] Pulse Rhythm Regular Pulse Rhythm [Right Radial] Pulse Strength Normal Respiratory Rate 18 Respiratory Effort / Characteristics Non-Labored Spontaneous Respiratory Depth Normal Respiratory Pattern Regular Blood Pressure - Lying 157/82 H Blood Pressure - Sitting 142/71 H Blood Pressure- Standing 127/60 Blood Pressure 124/71 Blood Pressure [Left Arm] Blood Pressure Mean 88 Blood Pressure Mean [Left Arm] Blood Pressure Position Sitting Pulse Oximetry 96 98 Oxygen Delivery Method Room Air Sepsis Recent Fever Within 48 Hours No Sepsis New/Unexplained Change in Mental Status No Sepsis Action Taken by Nursing No Action Required 05/27/22 15:50 Temperature Temperature Source Pulse Rate - Lying Pulse Rate - Sitting Pulse Rate - Standing Pulse Rate Pulse Rate [Right Radial] 48 L Pulse Rhythm Pulse Rhythm [Right Radial] Regular Pulse Strength Respiratory Rate 20 Respiratory Effort / Characteristics Non-Labored Respiratory Depth Normal Respiratory Pattern Blood Pressure - Lying Blood Pressure - Sitting Blood Pressure- Standing Blood Pressure Blood Pressure [Left Arm] 148/77 H Blood Pressure Mean Blood Pressure Mean [Left Arm] 100 Blood Pressure Position Pulse Oximetry 97 Oxygen Delivery Method Room Air Sepsis Recent Fever Within 48 Hours Sepsis New/Unexplained Change in Mental Status Sepsis Action Taken by Nursing Laboratory Data Result diagrams: 05/27/22 16:17 05/27/22 20:00 Lab Results 05/27/22 05/27/22 05/27/22 Range/Units 16:17 16:17 16:17 WBC 14.45 H (4.8-10.8) K/ul RBC 4.40 L (4.63-6.08) M/uL Hgb 13.4 L (14.0-18.0) g/dl Hct 39.2 L (40.1-51.0) % MCV 89.1 (80.0-100.0) fL MCH 30.5 (25.0-34.0) pg MCHC 34.2 (32.0-36.0) g/dL RDW Std Deviation 44.8 (36.4-46.3) fL RDW Coeff of Gustavo 13.7 (11.5-14.5) % Plt Count 151 (130-400) K/uL MPV 11.3 (9.4-12.4) fL Immature Gran % (Auto) 0.6 % Neut % (Auto) 93.5 % Lymph % (Auto) 2.1 % [place] % (Auto) 3.7 % Eos % (Auto) 0.0 % Baso % (Auto) 0.1 % Neut # (Auto) 13.51 H (1.4-6.5) K/uL Lymph # (Auto) 0.30 L (1.2-3.4) K/uL [place] # (Auto) 0.54 (0.24-0.82) K/uL Eos # (Auto) 0.00 (0-0.50) K/uL Baso # (Auto) 0.02 (0-0.2) K/uL Immature Gran # (Auto) 0.08 H (0.00-0.02) K/uL Echinocytes 2+ Acanthocytes (Spur) 2+ VBG pH (7.36-7.41) VBG pCO2 (38-50) mmHg VBG pO2 mmHg VBG HCO3 mmol/L VBG O2 Saturation % VBG Base Excess mEq/L Sodium 132 L (136-145) mmol/L Potassium 5.2 H (3.5-5.1) mmol/L Chloride 100 (98-107) mmol/L Carbon Dioxide 19 L (21-32) mmol/L Anion Gap 13 H (3-11) BUN 106 H (6-23) mg/dl Creatinine 2.80 H (0.6-1.4) mg/dl Est Cr Clr Drug Dosing 19.2 ml/min Est GFR ( Amer) 24.1 ml/min Est GFR (Non-Af Amer) 20.8 ml/min BUN/Creatinine Ratio 37.9 H (10-20) Glucose 526 H* (70-99(Fasting)) mg/dl POC Glucose (70-99) mg/dl Calcium 9.5 (8.5-10.1) mg/dl Phosphorus (2.5-4.9) mg/dl Magnesium 2.2 (1.7-2.4) mg/dl Total Bilirubin 0.5 (0.2-1.0) mg/dl AST 14 (13-39) U/L ALT 22 (7-52) U/L Alkaline Phosphatase 123 H (34-104) U/L Troponin I High Sens 11.7 (0-20) pg/ml Total Protein 6.9 (6.0-8.3) gm/dl Albumin 3.7 (3.4-5.0) gm/dl Globulin 3.2 (2.5-4.0) gm/dl Albumin/Globulin Ratio 1.2 (0.9-2) TSH 0.359 (0.300-4.500) uIu/ml SARS-CoV-2, RNA, NAAT (NEGATIVE) 05/27/22 05/27/22 05/27/22 Range/Units 16:17 16:17 17:25 WBC (4.8-10.8) K/ul RBC (4.63-6.08) M/uL Hgb (14.0-18.0) g/dl Hct (40.1-51.0) % MCV (80.0-100.0) fL MCH (25.0-34.0) pg MCHC (32.0-36.0) g/dL RDW Std Deviation (36.4-46.3) fL RDW Coeff of Gustavo (11.5-14.5) % Plt Count (130-400) K/uL MPV (9.4-12.4) fL Immature Gran % (Auto) % Neut % (Auto) % Lymph % (Auto) % [place] % (Auto) % Eos % (Auto) % Baso % (Auto) % Neut # (Auto) (1.4-6.5) K/uL Lymph # (Auto) (1.2-3.4) K/uL [place] # (Auto) (0.24-0.82) K/uL Eos # (Auto) (0-0.50) K/uL Baso # (Auto) (0-0.2) K/uL Immature Gran # (Auto) (0.00-0.02) K/uL Echinocytes Acanthocytes (Spur) VBG pH (7.36-7.41) VBG pCO2 (38-50) mmHg VBG pO2 mmHg VBG HCO3 mmol/L VBG O2 Saturation % VBG Base Excess mEq/L Sodium (136-145) mmol/L Potassium (3.5-5.1) mmol/L Chloride (98-107) mmol/L Carbon Dioxide (21-32) mmol/L Anion Gap (3-11) BUN (6-23) mg/dl Creatinine (0.6-1.4) mg/dl Est Cr Clr Drug Dosing ml/min Est GFR ( Amer) ml/min Est GFR (Non-Af Amer) ml/min BUN/Creatinine Ratio (10-20) Glucose (70-99(Fasting)) mg/dl POC Glucose 447 H* (70-99) mg/dl Calcium (8.5-10.1) mg/dl Phosphorus 4.9 (2.5-4.9) mg/dl Magnesium (1.7-2.4) mg/dl Total Bilirubin (0.2-1.0) mg/dl AST (13-39) U/L ALT (7-52) U/L Alkaline Phosphatase (34-104) U/L Troponin I High Sens (0-20) pg/ml Total Protein (6.0-8.3) gm/dl Albumin (3.4-5.0) gm/dl Globulin (2.5-4.0) gm/dl Albumin/Globulin Ratio (0.9-2) TSH (0.300-4.500) uIu/ml SARS-CoV-2, RNA, NAAT NEGATIVE (NEGATIVE) 05/27/22 Range/Units 17:47 WBC (4.8-10.8) K/ul RBC (4.63-6.08) M/uL Hgb (14.0-18.0) g/dl Hct (40.1-51.0) % MCV (80.0-100.0) fL MCH (25.0-34.0) pg MCHC (32.0-36.0) g/dL RDW Std Deviation (36.4-46.3) fL RDW Coeff of Gustavo (11.5-14.5) % Plt Count (130-400) K/uL MPV (9.4-12.4) fL Immature Gran % (Auto) % Neut % (Auto) % Lymph % (Auto) % [place] % (Auto) % Eos % (Auto) % Baso % (Auto) % Neut # (Auto) (1.4-6.5) K/uL Lymph # (Auto) (1.2-3.4) K/uL [place] # (Auto) (0.24-0.82) K/uL Eos # (Auto) (0-0.50) K/uL Baso # (Auto) (0-0.2) K/uL Immature Gran # (Auto) (0.00-0.02) K/uL Echinocytes Acanthocytes (Spur) VBG pH 7.27 L (7.36-7.41) VBG pCO2 43 (38-50) mmHg VBG pO2 37 mmHg VBG HCO3 20 mmol/L VBG O2 Saturation 68.6 % VBG Base Excess -7.0 mEq/L Sodium (136-145) mmol/L Potassium (3.5-5.1) mmol/L Chloride (98-107) mmol/L Carbon Dioxide (21-32) mmol/L Anion Gap (3-11) BUN (6-23) mg/dl Creatinine (0.6-1.4) mg/dl Est Cr Clr Drug Dosing ml/min Est GFR ( Amer) ml/min Est GFR (Non-Af Amer) ml/min BUN/Creatinine Ratio (10-20) Glucose (70-99(Fasting)) mg/dl POC Glucose (70-99) mg/dl Calcium (8.5-10.1) mg/dl Phosphorus (2.5-4.9) mg/dl Magnesium (1.7-2.4) mg/dl Total Bilirubin (0.2-1.0) mg/dl AST (13-39) U/L ALT (7-52) U/L Alkaline Phosphatase (34-104) U/L Troponin I High Sens (0-20) pg/ml Total Protein (6.0-8.3) gm/dl Albumin (3.4-5.0) gm/dl Globulin (2.5-4.0) gm/dl Albumin/Globulin Ratio (0.9-2) TSH (0.300-4.500) uIu/ml SARS-CoV-2, RNA, NAAT (NEGATIVE) Administered Medications Dextrose (Dextrose 50% 50 Ml Syringe) 25 - 50 ml IV UD PRN; Protocol PRN Reason: Hypoglycemia Protocol Stop: 06/26/22 17:27 Last Admin: 05/27/22 23:28 Dose: 25 ml Documented By: WOJCIECH Gabapentin (Gabapentin 300 Mg Cap) 300 mg PO TID ADELINA Stop: 06/26/22 20:59 Last Admin: 05/27/22 22:00 Dose: 300 mg Documented By: WOJCIECH Insulin Human Regular 250 (units/ Sodium Chloride) 250 mls @ 0 mls/hr IV .Q0M ADELINA; Protocol Stop: 06/26/22 17:29 Last Titration: 05/27/22 22:50 Dose: 0 units/hr, 0 mls/hr Documented By: WOJCIECH Co-signed By: ROHAN Titration: 05/27/22 21:50 Dose: 4.8 units/hr, 4.8 mls/hr Documented By: WOJCIECH Co-signed By: ROHAN Titration: 05/27/22 20:50 Dose: 6 units/hr, 6 mls/hr Documented By: WOJCIECH Co-signed By: ROHAN Titration: 05/27/22 19:54 Dose: 6 units/hr, 6 mls/hr Documented By: WOJCIECH Co-signed By: ROHAN Admin: 05/27/22 18:24 Dose: 6 units/hr, 6 mls/hr Documented By: JENNIFFER Co-signed By: GELA Insulin Aspart (Insulin Aspart Per Unit) 0 units SC ACHS ADELINA Stop: 06/26/22 20:59 Last Admin: 05/27/22 20:51 Dose: Not Given Documented By: WOJCIECH Discontinued Medications Sodium Chloride (Nss 1000ml) 1,000 mls @ 125 mls/hr IV .Q8H ADELINA Stop: 05/28/22 00:14 Last Admin: 05/27/22 17:20 Dose: 125 mls/hr Documented By: JENNIFFER Sodium Chloride (Nss) 500 mls @ 999 mls/hr IV .Q31M ADELINA Stop: 05/27/22 16:45 Last Infusion: 05/27/22 17:20 Dose: 0 mls/hr Documented By: Admin: 05/27/22 16:14 Dose: 999 mls/hr Documented By: JENNIFFER Sodium Chloride (Nss 1000ml) 500 mls @ 999 mls/hr IV .Q31M ONE Stop: 05/27/22 17:56 Last Admin: 05/27/22 18:29 Dose: 999 mls/hr Documented By: JENNIFFER Miscellaneous (Dka Goal Range 150-250 Mg/Dl) 1 each N/A ONE ONE Stop: 05/27/22 17:29 Last Admin: 05/27/22 18:29 Dose: Not Given Documented By: JENNIFFER Imaging Data Radiologist's Impression: Chest X-Ray 05/27/22 16:04 XR chest 1V portable HISTORY: 76 years-old Male weakness acute weakness COMPARISON: Chest radiograph 02/04/2021 TECHNIQUE: AP view of the chest FINDINGS: Cardiac silhouette is upper limits of normal in size. Atherosclerosis of the aorta. Left subclavian [id number]-[id number]-Ullr catheter distal tip terminates in the expected location of the inferior SVC. Bones of the chest appear grossly intact. Unchanged bone island of the posterior left third rib. IMPRESSION: No acute process. ACT 112: Negative or not required by law. The above report was generated using voice recognition software. It may contain grammatical, syntax or spelling errors. Electronically signed by: Davey Cloud M.D. 05/27/2022 4:[address] 05/27/22 16:33 CT head/brain wo con CLINICAL HISTORY: 76 years-old Male with falls, weakness, hx of colon CA. Acute head trauma status post fall with acute weakness. TECHNIQUE: Multiple axial CT images of the head were obtained without contrast. A dose lowering technique was utilized adhering to the principles of ALARA. CT DOSE: 537.48 mGy.cm COMPARISON: None. FINDINGS: No acute intracranial hemorrhage, midline shift, intracranial mass, hydrocephal us, territorial ischemia or abnormal extra-axial collection. Age-related involutional changes with ex vacuo ventriculomegaly. White matter hypodensities are suggestive of chronic microvascular ischemic disease. Evaluation for intracranial metastasis is limited without the use of IV contrast. The calvarium is intact. Prior bilateral lens repair. The paranasal sinuses, mastoid air cells, and middle ear cavities are clear. IMPRESSION: No acute intracranial abnormality. ACT 112: Negative or not required by law. The above report was generated using voice recognition software. It may contain grammatical, syntax or spelling errors. Electronically signed by: Davey Cloud M.D. 05/27/2022 4:59 PM Discharge Plan Visit Data Chief Complaint: Abnormal Labs/Diagnostic Testing Stated Complaint: SUGAR LEVEL HIGH ED Provider: Devin Tavarez Discharge Problem: DKA (diabetic ketoacidosis), Generalized weakness, Hyperglycemia, Tremor Patient Disposition: Admitted As Inpatient Discharge Instructions Interventions: ED Discharge Assessment Last Done: 05/27/22 19:20
[2022-05-27 16:31] LABS: Hematocrit (blood only) 39.2 % (40.1-51.0); Hemoglobin 13.4 g/dl (14.0-18.0); Mean Corpuscular Hemoglobin 30.5 pg (25.0-34.0); Mean Corpuscular Hgb Conc 34.2 g/dL (32.0-36.0); Mean Corpuscular Volume 89.1 fL (80.0-100.0); Mean Platelet Volume 11.3 fL (9.4-12.4); Platelet Count 151 K/uL (130-400); RDW Coefficient of Variation 13.7 % (11.5-14.5); RDW Standard Deviation 44.8 fL (36.4-46.3); White Blood Count 14.45 K/ul (4.8-10.8)
[2022-05-27 16:50] LABS: Acanthocytes 2+; Basophils # (auto) 0.02 K/uL (0-0.2); Basophils % (auto) 0.1 %; Echinocytes 2+; Immature Granulocytes # (auto) 0.08 K/uL (0.00-0.02); Immature Granulocytes % (auto) 0.6 %; Lymphocytes % (auto) 2.1 %; Monocytes # (auto) 0.54 K/uL (0.24-0.82); Monocytes % (auto) 3.7 %; Neutrophils # (auto) 13.51 K/uL (1.4-6.5); Neutrophils % (auto) 93.5 %
--- NOTE | 2022-05-27 16:53 | XRay Report ---
XR chest 1V portable HISTORY: 76 years-old Male weakness acute weakness COMPARISON: Chest radiograph 02/04/2021 TECHNIQUE: AP view of the chest FINDINGS: Cardiac silhouette is upper limits of normal in size. Atherosclerosis of the aorta. Left subclavian I [id number]-[id number]-[id number] catheter distal tip terminates in the expected location of the inferior SVC. Bones of th e chest appear grossly intact. Unchanged bone island of the posterior left third rib. IMPRESSION: No acute process. ACT 112: Negative or not required by law. The above report was generated using voice recognition software. It may contain grammatical, syntax o r spelling errors. Electronically signed by: Davey Cloud M.D. 05/27/2022 4:51 PM
--- NOTE | 2022-05-27 17:00 | CT Scan Report ---
CT head/brain wo con CLINICAL HISTORY: 76 years-old Male with falls, weakness, hx of colon CA. Acute head trauma status p ost fall with acute weakness. TECHNIQUE: Multiple axial CT images of the head were obtained without contrast. A dose lowering tech nique was utilized adhering to the principles of ALARA. CT DOSE: 537.48 mGy.cm COMPARISON: None. FINDINGS: No acute intracranial hemorrhage, midline shift, intracranial mass, hydrocephalus, territorial ischem ia or abnormal extra-axial collection. Age-related involutional changes with ex vacuo ventriculomegal y. White matter hypodensities are suggestive of chronic microvascular ischemic disease. Evaluation fo r intracranial metastasis is limited without the use of IV contrast. The calvarium is intact. Prior bilateral lens repair. The paranasal sinuses, mastoid air cells, and m iddle ear cavities are clear. IMPRESSION: No acute intracranial abnormality. ACT 112: Negative or not required by law. The above report was generated using voice recognition software. It may contain grammatical, syntax o r spelling errors. Electronically signed by: Davey Cloud M.D. 05/27/2022 4:59 PM
[2022-05-27 17:21] LABS: Albumin Globulin Ratio 1.2 (0.9-2); Albumin Level 3.7 gm/dl (3.4-5.0); BUN Creatinine Ratio 37.9 (10-20); Bilirubin,Total 0.5 mg/dl (0.2-1.0); Calcium 9.5 mg/dl (8.5-10.1); Creatinine Clr Calc Pharmacy 19.2 ml/min; Est GFR (African American) 24.1 ml/min; Est GFR (Non-African American) 20.8 ml/min; Globulin 3.2 gm/dl (2.5-4.0); Magnesium 2.2 mg/dl (1.7-2.4); Potassium 5.2 mmol/L (3.5-5.1); Total Protein 6.9 gm/dl (6.0-8.3); Troponin I High Sensitivity 11.7 pg/ml (0-20)
[2022-05-27] MEDS ORDERED: SODIUM CHLORIDE 0.9% 1000ML 500 ML IV ONE (17:26)
[2022-05-27] MEDS ORDERED: GLUCAGON FOR INJ 1 MG VIAL SQ PRN (17:28)
[2022-05-27] MEDS ORDERED: STAT INSULIN DRIP STA (17:28)
[2022-05-27] MEDS ORDERED: DKA GOAL RANGE 150-250 mg/dl ONE (17:28)
[2022-05-27] MEDS ORDERED: CARBOHYDRATES FOR HYPOGLYCEMIA PO PRN (17:28)
[2022-05-27] MEDS ORDERED: GLUCOSE 10 TAB/TUBE PO PRN (17:28)
[2022-05-27] MEDS ORDERED: DEXTROSE 50% 50 ML SYRINGE IV PRN (17:28)
[2022-05-27] MEDS ORDERED: GLUCOSE 40% GEL 15 GM TUBE PO PRN (17:28)
[2022-05-27] MEDS ORDERED: INSULIN REGULAR 250 UNITS in SODIUM CHLORIDE 0.9% 247.5 ML IV SCH (17:30)
--- NOTE | 2022-05-27 17:48 | History & Physical Report ---
Date of Service May 27, 2022 Assessment & Plan (1) DKA (diabetic ketoacidosis): Plan: - Patient has previous diabetic, pff medications for 10 years, however recently started on p.o. steroids for relief of his pain due to cancer. - Admitting glucose 526, bicarb 19, AG 13, potassium 5.2. pH on VBG's 7.27. - Patient received 1L NS bolus, followed by NSS at 125cc/hr. - Placed on insulin drip, pharmacy consult placed to assist with transition to subcutaneous insulin glucose reaches 250 and AG closes. - BMP with electrolytes every 4 hours. - Did have a discussion with patient regarding whether treating his diabetes to be part of his goals of care, and discussed if he continues on p.o. steroids, he may in fact need some kind of daily regimen to manage his sugars and avoid additional hospitalizations. He and his both state he is achieved great relief since starting steroids, however patient at this time indicates he may rather stop steroids then receive regular insulin injections. (2) Dnebe-nw-qibcuki kidney injury: Plan: - Cr 2.80, baseline 1.3- 1.6. Due to dehydration 2/2 DKA. - BMP will be monitored Q4H per DKA protocol, anticipate improvement in function with IVF. (3) Generalized weakness: Plan: - 2/2 dehydration from DKA, metastatic cancer. No signs or symptoms to suggest infection. No focal deficits. 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 - Pain regimen includes morphine prn, lorazepam at night prn for agitation, ibuprofen 600 mg TID prn, dexamethasone 6 mg PO daily, and fentanyl patch 362mg (100 mg patches x3, 50 mg patch x1, 12 mg patch x1) mg every 72 hours applied to either arm, last applied to L upper arm 05/27. Plan - Admit to PCU. - SCDs for VTE ppx. - DNR/DNI. History of Present Illness Chief Complaint: General weakness and falls at home with a sugar of 500 today Primary Care Provider: James Zheng MD Yunior Rosas is a 76-year-old male past medical history significant for rectal cancer now on hospice care he presents today from home with his due to elevated blood sugars. Over the past several days, he has been significantly more weak tremulous than usual and has had several falls, which prompted to check her sugar and states that it read in the 500s at home. Patient is a former diabetic, has been off medications for about a decade now. As stated, he is on hospice care and his only current medications include those for pain. He was recently started on dexamethasone 1 month ago, currently taking 6 mg daily. He was put on this because he is at max dose on all his other pain medications. He has had significant relief from his pain since starting steroid. Other than feeling weak, he is without complaint today, no fever or chills, body aches, chest pain, palpitation, shortness of breath, cough, abdominal pain, nausea, vomiting, dysuria, diarrhea, constipation. In ED, he has been bradycardic in the 4050s, asymptomatic, vitals otherwise within normal limits. Labs significant for WBC of 14.45 calcium 5.2, 18, AG 13, BUN 106, creatinine 2.80, glucose 526. Presentation consistent with a mild DKA. CXR and head CT acute findings. DKA protocol initiated in ED. Allergies Allergy/AdvReac Type Severity Reaction Status Date / Time No Known Allergies Allergy Verified 02/11/21 14:11 Home Medications Medication Instructions Recorded Confirmed Type fentanyl 50 mcg/hr transdermal 1 patch transdermal Q72H #10 ea 01/27/21 05/27/22 Rx patch dexamethasone 6 mg tablet 6 mg PO DAILY 05/27/22 05/27/22 History fentanyl 100 mcg/hr transdermal 05/27/22 History patch fentanyl 100 mcg/hr transdermal 1 patch transdermal Q72H pain 05/27/22 05/27/22 History patch fentanyl 12 mcg/hr transdermal 1 patch transdermal Q72H pain 05/27/22 05/27/22 History patch ibuprofen 600 mg tablet 600 mg PO TID 05/27/22 05/27/22 History lorazepam 2 mg/mL oral concentrate See Rx Instructions .Route 05/27/22 05/27/22 History .COMPLEX PRN Anxiety morphine concentrate 100 mg/5 mL See Rx Instructions .Route 05/27/22 05/27/22 History (20 mg/mL) oral solution .COMPLEX PRN Pain Past Med/Surg History Medical History CKD (chronic kidney disease) Diabetes type 2, controlled controlled with diet GERD (gastroesophageal reflux disease) History of chemotherapy (~2005) for Rectal CA - 5-FU(with radiation) followed by 7 cycles of FOLFOX + Avastin, 12 Cycles of adjuvant FOLFIRI + Avastin (Finished 2007) History of liver cancer History of radiation therapy (11/25/06) for rectal CA (5580cGy from 10/12/06-11/25/06) History of skin cancer REMOVED FROM EAR Hyperlipidemia Hypertension Peripheral neuropathy Rectal adenocarcinoma (09/20/06) with solitary liver mets (T3N0M1) TIA (transient ischemic attack) ? EVENT "YEARS AGO" Urinary retention SELF CATH 4X PER DAY Surgical History H/O eye surgery (1979) METAL REMOVED H/O resection of liver (~04/2007) History of bowel resection (~04/2007) History of cataract surgery (2018) Right and Left History of cholecystectomy History of colonoscopy (07/2017) History of colostomy (04/2007) History of herniorrhaphy INGUINIAL History of tooth extraction Port-A-Cath in place (02/04/21) Insertion of Right Subclavian Infusaport(Right) - Sky Madsen MD, FACS Family History Mother , Passed age 98 of natural causes No problems noted. Father , Passed age 88 of "cardiac issues" Prostate cancer, Onset Age: 70 Brother No problems noted. Sister No problems noted. Daughter No problems noted. Son No problems noted. 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 Feels Safe at Home: Yes Safety Concerns: Feels Safe At This Time caffeine: Yes (coke zero ) during the past year weight has: remained stable Dental Care, Regularly: No Assistive Devices: Denture - Upper Review of Systems Review of Systems: Constitutional: general weakness, tremors, falls x 1 weekl No fever/chills,myalgias, anorexia, night sweats Eyes: No diplopia, no worsening or blurred vision ENT: normal hearing, no trouble swallowing Respiratory: No cough, sputum, dyspnea at rest or on exertion Cardiovascular: No chest pain, tightness or palpitations Abdomen: No pain, nausea, vomiting, diarrhea or constipation : Denies dysuria, hematuria, increased urgency/frequency, urinary retention Musculoskeletal: No joint pain, calf pain, swelling Neurologic: No weakness, numbness/tingling, or balance problems Psychiatric: No anxiety or depression Skin: No rash or itch Physical Exam Physical Exam: General: awake, alert, no apparent distress Head: Normocephalic, atraumatic ENT: PERRL, EOMI, no pharyngeal exudate, mucous membranes moist Chest: Clear to auscultation, on room air, no adventitious breath sounds Cardiac: bradycardic rate, regular rhythm, no murmur, no JVD, normal peripheral pulses, good capillary refill Abdominal: NABS x 4 quadrants, soft, nontender to palpation, no rebound, guarding or tenderness Extremities: Normal inspection, no peripheral edema or erythema, calfs nontender to palpation Psych: Normal mood and affect Neuro: AAO x 3, strength intact bilaterally and rated 5/5, no motor deficits, speech is clear, no peripheral sensory deficits Skin: no rash or erythema Results & Data Results & Data ([facility]) Vital Signs (Past 12 Hours) Vital Signs Temp Pulse Resp BP Pulse Ox O2 Del Method 05/27/22 16:10 98 05/27/22 15:57 36.3 C L 60 18 124/71 96 Room Air Laboratory Results Abnormal lab results 05/27/22 05/27/22 05/27/22 Range/Units 16:17 16:17 17:25 WBC 14.45 H (4.8-10.8) K/ul RBC 4.40 L (4.63-6.08) M/uL Hgb 13.4 L (14.0-18.0) g/dl Hct 39.2 L (40.1-51.0) % Neut # (Auto) 13.51 H (1.4-6.5) K/uL Lymph # (Auto) 0.30 L (1.2-3.4) K/uL Immature Gran # (Auto) 0.08 H (0.00-0.02) K/uL VBG pH (7.36-7.41) Sodium 132 L (136-145) mmol/L Potassium 5.2 H (3.5-5.1) mmol/L Carbon Dioxide 19 L (21-32) mmol/L Anion Gap 13 H (3-11) BUN 106 H (6-23) mg/dl Creatinine 2.80 H (0.6-1.4) mg/dl BUN/Creatinine Ratio 37.9 H (10-20) Glucose 526 H* (70-99(Fasting)) mg/dl POC Glucose 447 H* (70-99) mg/dl Alkaline Phosphatase 123 H (34-104) U/L 05/27/22 Range/Units 17:47 WBC (4.8-10.8) K/ul RBC (4.63-6.08) M/uL Hgb (14.0-18.0) g/dl Hct (40.1-51.0) % Neut # (Auto) (1.4-6.5) K/uL Lymph # (Auto) (1.2-3.4) K/uL Immature Gran # (Auto) (0.00-0.02) K/uL VBG pH 7.27 L (7.36-7.41) Sodium (136-145) mmol/L Potassium (3.5-5.1) mmol/L Carbon Dioxide (21-32) mmol/L Anion Gap (3-11) BUN (6-23) mg/dl Creatinine (0.6-1.4) mg/dl BUN/Creatinine Ratio (10-20) Glucose (70-99(Fasting)) mg/dl POC Glucose (70-99) mg/dl Alkaline Phosphatase (34-104) U/L Diagnostic Findings Chest X-Ray 05/27/22 16:04 XR chest 1V portable HISTORY: 76 years-old Male weakness acute weakness COMPARISON: Chest radiograph 02/04/2021 TECHNIQUE: AP view of the chest FINDINGS: Cardiac silhouette is upper limits of normal in size. Atherosclerosis of the aorta. Left subclavian Yqehyu-i-Rpdu catheter distal tip terminates in the expected location of the inferior SVC. Bones of the chest appear grossly intact. Unchanged bone island of the posterior left third rib. IMPRESSION: No acute process. ACT 112: Negative or not required by law. The above report was generated using voice recognition software. It may contain grammatical, syntax or spelling errors. Electronically signed by: Davey Cloud M.D. 05/27/2022 4:[address] 05/27/22 16:33 CT head/brain wo con CLINICAL HISTORY: 76 years-old Male with falls, weakness, hx of colon CA. Acute head trauma status post fall with acute weakness. TECHNIQUE: Multiple axial CT images of the head were obtained without contrast. A dose lowering technique was utilized adhering to the principles of ALARA. CT DOSE: 537.48 mGy.cm COMPARISON: None. FINDINGS: No acute intracranial hemorrhage, midline shift, intracranial mass, hydrocephalus, territorial ischemia or abnormal extra-axial collection. Age- related involutional changes with ex vacuo ventriculomegaly. White matter hypodensities are suggestive of chronic microvascular ischemic disease. Evaluation for intracranial metastasis is limited without the use of IV contrast. The calvarium is intact. Prior bilateral lens repair. The paranasal sinuses, mastoid air cells, and middle ear cavities are clear. IMPRESSION: No acute intracranial abnormality. ACT 112: Negative or not required by law. The above report was generated using voice recognition software. It may contain grammatical, syntax or spelling errors. Electronically signed by: Davey Cloud M.D. 05/27/2022 4:59 PM ECG Additional Comments: Sinus bradycardia Incomplete right bundle branch block Left anterior fascicular block Septal infarct (cited on or before 11-FEB-2021) Abnormal ECG When compared with ECG of 11-FEB-2021 12:11, Questionable change in initial forces of Septal leads. Code Status & VTE Plan Code Status DNR/DNI. Supervising Physician Co-Signing Physician Notes Patient seen and examined, chart reviewed, case discussed with Angela Gant PA-C and I agree with the assessment and plan as above except as otherwise noted. Seen the bedside in the company of his . At the bedside he is somewhat tearful and worried about being admitted but is comfortable. He and his report that the goals of treatment are to treat the high blood sugars and then return home on hospice care. He reports that he is on steroids for management of his pain and has otherwise maxed out other pain modalities for his cancer. He thinks he has not gotten good benefit from dexamethasone treatment, and it is anticipated that this will be continued. With this in mind discussed what he would like to do for blood sugar control as his hyperglycemia and subsequent dehydration have produce a significant quality of life decrease. His reports that they would like to continue antilipemics, would consider oral meds but are open to insulin if needed and his could help provide this for him. Patient reports he would also be open to stopping the dexamethasone, although he and his note that he has seemed to have gotten some therapeutic benefit from it. Lungs clear, heart regular. Adb mildly tender to deep palpation. No rebound. Labs and images reviewed Yunior is a 76-year-old male with a history of metastatic colon cancer on hospice who was recently started on steroids and has a prior history of diabetes. While on steroids he became progressively weak, his checked his blood sugar and it was found to be greater than 500. He was previously diabetic, but had his home diabetic medications discontinued more than 10 years ago. He was recommended for admission for acute blood sugar control producing symptoms of weakness and excess fatigue Hyperglycemia, diabetic ketoacidosis Patient on hospice, however has acute worsening of his strength and increased fatigue due to symptomatic hyperglycemia with progressive dehydration Discussed risks/benefits of various tx options, pt feels treatment of his diabetes is within his goals of care, and gets sx benefit from steroids Anion gap 13 on admission, creatinine 2.8 from baseline of approximately 1.31.9, bicarb 19. Potassium 5.2. Continue insulin GTT Pt recieved 1 L NSS and placed on NSS 125 cc/h. Normotensive, no tachycardia on re-eval On admission bicarb 19, BMP every 4 hours, potassium repletion as needed Transition to subcu when serum glucose less than 250, anion gap closes as long as pH remains above 7.3 and bicarb greater than 15. VBG pending. Metastatic colon adenocarcinoma Patient on hospice care for this, no active chemo/radiation/treatment Follow clinically, continue pain control as needed Patient admitted in evening, will call out to hospice provider to discuss ongoing pain management and steroid dosing tomorrow Hypertension No longer on antihypertensives as part of hospice medication wean. 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
[2022-05-27 18:03] LABS: HCO3 VBG 20 mmol/L; Oxygen Saturation VBG 68.6 %; PCO2 VBG 43 mmHg (38-50); PO2 VBG 37 mmHg; pH VBG 7.27 (7.36-7.41)
[2022-05-27] MEDS ORDERED: POLYETHYLENE (MIRALAX) 17 GM PACK PO PRN (19:45)
[2022-05-27] MEDS ORDERED: oxyCODONE HCL IR 5 MG TAB (IMMEDIATE RELEASE) PO PRN (19:45)
[2022-05-27] MEDS ORDERED: ONDANSETRON INJ 2 MG/ML 2 ML VIAL IV PRN (19:45)
[2022-05-27] MEDS ORDERED: PHARMACY GLYCEMIC MGMT CONSULT PRN (19:45)
[2022-05-27] MEDS ORDERED: fentaNYL 50 MCG/HR TDSY TD SCH (19:45)
[2022-05-27] MEDS ORDERED: ACETAMINOPHEN 325 MG TAB PO PRN (19:59)
[2022-05-27 20:48] LABS: BUN Creatinine Ratio 38.8 (10-20); Calcium 9.3 mg/dl (8.5-10.1); Creatinine Clr Calc Pharmacy 20.5 ml/min; Est GFR (Non-African American) 22.5 ml/min; Magnesium 2.3 mg/dl (1.7-2.4); Phosphorus 4.4 mg/dl (2.5-4.9); Potassium 4.7 mmol/L (3.5-5.1)
[2022-05-27] MEDS ORDERED: INSULIN ASPART PER UNIT SC SCH (21:00)
[2022-05-27] MEDS: GABAPENTIN 300 MG CAP PO SCH (22:00)
[2022-05-27 22:58] LABS: Appearance Urine Cloudy (Clear); Bacteria Urine Automated 2+ (Negative); Bilirubin Urine Negative (Negative); Blood Urine 2+ (Negative); Color Urine Yellow; Glucose Urine UA 3+ (Negative); Ketones Urine Negative (Negative); Leukocyte Esterase Urine 3+ (Negative); Nitrite Urine Negative (Negative); Protein Urine 1+ (Negative); RBC Urine Automated 0-4 /hpf (0-4); Specific Gravity Urine 1.017 (1.000-1.030); Urobilinogen Urine Negative (Negative); WBC Urine Automated >30 /hpf (0-5)
[2022-05-28 00:45] LABS: BUN Creatinine Ratio 37.2 (10-20); Calcium 9.1 mg/dl (8.5-10.1); Creatinine Clr Calc Pharmacy 21.8 ml/min; Est GFR (African American) 27.3 ml/min; Est GFR (Non-African American) 23.5 ml/min; Magnesium 2.2 mg/dl (1.7-2.4); Potassium 4.5 mmol/L (3.5-5.1)
[2022-05-28] MEDS: INSULIN ASPART PER UNIT SC SCH ×5 (00:58→20:35)
[2022-05-28] MEDS ORDERED: D5W AND 1/2NSS 1,000 ML IV SCH (01:30)
[2022-05-28] MEDS ORDERED: LANTUS PER UNIT CHARGE SQ ONE (04:00)
[2022-05-28] MEDS ORDERED: INSULIN ASPART PER UNIT SQ ONE (04:00)
[2022-05-28 05:36] LABS: BUN Creatinine Ratio 37.4 (10-20); Calcium 8.9 mg/dl (8.5-10.1); Creatinine Clr Calc Pharmacy 22.6 ml/min; Est GFR (African American) 28.6 ml/min; Est GFR (Non-African American) 24.7 ml/min; Magnesium 2.2 mg/dl (1.7-2.4); Phosphorus 3.8 mg/dl (2.5-4.9); Potassium 4.7 mmol/L (3.5-5.1)
[2022-05-28 06:54] LABS: Estimated Average Glucose 186 mg/dl; Hemoglobin A1C 8.1 % (4.5-5.6)
--- NOTE | 2022-05-28 07:16 | Hospitalist Progress Note ---
Date of Service May 28, 2022 Assessment & Plan (1) DKA (diabetic ketoacidosis): Plan: Yunior is a 76-year-old male with metastatic rectal adenocarcinoma on hospice who presented in DKA following steroid treatment for palliation. Gap is closed, transitioning to subcu insulin, remains volume depleted with an JUANCHO. He does have tremor/twitching which are new and likely related to acute uremia. Patient's goals of care would be to return home on hospice after volume resuscitation and initiation of blood sugar control/insulin so that he can continue dexamethasone for pain, versus discontinuation of dexamethasone if this is not possible. - Patient has previous diabetic, pff medications for 10 years, however recently started on p.o. steroids for relief of his pain due to cancer. - Admitting glucose 526, bicarb 19, AG 13, potassium 5.2. pH on VBG's 7.27. - Patient received 1L NS bolus, followed by NSS at 125cc/hr. - Did have a discussion with patient regarding whether treating his diabetes to be part of his goals of care, and discussed if he continues on p.o. steroids, he may in fact need some kind of daily regimen to manage his sugars and avoid additional hospitalizations. He and his both state he is achieved great relief since starting steroids, however patient at this time indicates he may rather stop steroids then receive regular insulin injections. BSG downtrending, reduce below 200 morning of 05/28 Remains with elevated BUN/creatinine ratio and creatinine of 2.43 Anion gap closed, bicarb 19 Transitioning to subcu today, continue to follow for JUANCHO, tremors, weakness. (2) Syucy-dv-afijyab kidney injury: Plan: - Cr 2.80, baseline 1.3- 1.6. Due to dehydration 2/2 DKA. -Beginning to downtrend with aggressive fluid resuscitation, 2.47 05/28 Patient is uremic in the setting of severe JUANCHO, BUN initially up to 100 now downtrending to 90 with baseline in the 30s. Suspect his muscle spasms are due to uremia. Patient is on hospice, dialysis not consistent with goals of care and he has improving urine output with IV fluids and downtrending creatinine. Will continue fluid support, will start clears as tolerated, BSG control as noted. (3) Generalized weakness: Plan: - 2/2 dehydration from DKA, metastatic cancer, uremia. No signs or symptoms to suggest infection. No focal deficits. 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 T3NxM1, post 5-FU/radiation, post resection of liver lesion, FOLFIRI+avastatin. 12/06/2020 referred for chemotherapy/radiation therapy consultation with iliac and pelvic mets. mFOLFOX with subsequent severe abdominal pain and nausea. Did not wish to Continue further treatment past this, increase fentanyl patch for pain instructions and to hospice following 02/18/2021. - On hospice care, no current treatment, focus on pain management/symptom relief. - Pain regimen includes morphine prn, lorazepam at night prn for agitation, ibuprofen 600 mg TID prn, dexamethasone 6 mg PO daily, and fentanyl patch 362mg (100 mg patches x3, 50 mg patch x1, 12 mg patch x1) mg every 72 hours applied to either arm, last applied to L upper arm 05/27. Plan - Admit to PCU. - SCDs for VTE ppx. - DNR/DNI. Admission and Anticipated Discharge Date Admission Date: May 27, 2022 Subjective Seen at bedside. Continues to have some jerking twitching/shakes. Continues to feel fatigued. No fever/chills/sweats overnight. No polyuria overnight. Feels a little bit more hydrated. Denies chest pain, chest pressure, shortness of breath. Denies acute/worsened pain. No nausea/vomiting. No abdominal pain and is tearful and expresses sadness at his cancer, chronic illness, and current admission Review of Systems Review of Systems: All systems reviewed & are unremarkable except as noted in Subjective Physical Exam Physical Exam: General: A&Ox3. NAD. Cooperative. HEENT: Atraumatic, normocephalic. Vision/hearing grossly intact Pulm: CTAB A&P. -wheezes, -rales, -rhonchi. Symmetrical chest rise. No increase in work of breathing. No respiratory distress. Cardiac: RRR, -mrg. Radial pulses intact and symmetrical. Abdominal: Minimally tender centrally, no guarding nondistended, soft. BS present. Extremities: Sporadic spasms, no overt asterixis, no hyperreflexia. Sensation of soft touch in hands and feet intact. Results & Data Results & Data ([facility]) Vital Signs (Past 12 Hours) Vital Signs Temp Pulse Pulse Resp BP BP BP 05/28/22 04:00 37.5 C 45 L 16 131/58 L 05/27/22 22:51 37.2 C 51 L 16 145/72 H 05/27/22 19:59 36.5 C 46 L 18 162/76 H 05/27/22 19:20 45 L 20 151/71 H Pulse Ox O2 Del Method 05/28/22 04:00 97 Room Air 05/27/22 22:51 96 Room Air 05/27/22 19:59 97 Room Air 05/27/22 19:20 98 Room Air PG Care Time/CCT Total # of Minutes Spent Total Time Spent with Patient: Total time spent is greater than 50% in coordination of care (as documented) at patient's floor/unit and/or counseling patient: Coding Level of Care Code 26112 Subseq Hosp Care Lvl 2 Diagnoses DKA (diabetic ketoacidosis) E11.10 Ufgvz-ax-uaoxokn kidney injury N17.9; N18.9 Generalized weakness R53.1 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
[2022-05-28] MEDS: GABAPENTIN 300 MG CAP PO SCH ×3 (08:36→20:30)
[2022-05-28 08:42] LABS: BUN Creatinine Ratio 38.8 (10-20); Calcium 9.2 mg/dl (8.5-10.1); Creatinine Clr Calc Pharmacy 22.7 ml/min; Est GFR (African American) 28.8 ml/min; Est GFR (Non-African American) 24.8 ml/min; Magnesium 2.1 mg/dl (1.7-2.4); Phosphorus 3.7 mg/dl (2.5-4.9); Potassium 4.1 mmol/L (3.5-5.1)
[2022-05-28] MEDS: SODIUM CHLORIDE 0.9% 500 ML IV SCH ×2 (10:05→13:42)
--- NOTE | 2022-05-28 11:54 | Electrocardiogram Report ---
Test Reason : Blood Pressure : / mmHG Vent. Rate : 048 BPM Atrial Rate : 048 BPM P-R Int : 202 ms QRS Dur : 110 ms QT Int : 436 ms P-R-T Axes : 055 -57 043 degrees QTc Int : 389 ms Poor data quality, interpretation may be adversely affected Sinus bradycardia Incomplete right bundle branch block Left anterior fascicular block Septal infarct (cited on or before 11-FEB-2021) Abnormal ECG When compared with ECG of 11-FEB-2021 12:11, Questionable change in initial forces of Septal leads Confirmed by Juan Carlos Mosqueda ([id number]) on 05/28/2022 11:54:22 AM Referred By: REFERRED SELF Confirmed By:Juan Carlos Mosqueda
[2022-05-28 12:01] LABS: Base Excess VBG -4.5 mEq/L; HCO3 VBG 22 mmol/L; Oxygen Saturation VBG < 60.0 %; PCO2 VBG 43 mmHg (38-50); PO2 VBG 26 mmHg; pH VBG 7.31 (7.36-7.41)
[2022-05-28 12:24] LABS: BUN Creatinine Ratio 36.8 (10-20); Calcium 9.5 mg/dl (8.5-10.1); Creatinine Clr Calc Pharmacy 22.2 ml/min; Est GFR (African American) 28.1 ml/min; Est GFR (Non-African American) 24.2 ml/min; Magnesium 2.1 mg/dl (1.7-2.4); Phosphorus 3.8 mg/dl (2.5-4.9); Potassium 4.2 mmol/L (3.5-5.1)
--- NOTE | 2022-05-28 13:31 | Pharmacy Report ---
Pharmacy Glycemic Short Note 2 - Date of Service May 28, 2022 - Glycemic Short BSG Results (Last 24 hours): 05/27/22 05/27/22 05/27/22 16:17 17:25 19:40 Glucose 526 H* POC Glucose 447 H* 323 H* 05/27/22 05/27/22 05/27/22 20:00 20:49 21:52 Glucose 284 H POC Glucose 272 H 213 H 05/27/22 05/27/22 05/27/22 22:49 23:22 23:48 Glucose POC Glucose 104 H 80 149 H 05/27/22 05/28/22 05/28/22 23:49 00:20 02:06 Glucose 149 H POC Glucose 161 H 123 H 05/28/22 05/28/22 05/28/22 03:39 04:18 05:49 Glucose 189 H POC Glucose 188 H 194 H 05/28/22 05/28/22 05/28/22 07:51 11:35 11:52 Glucose 148 H 125 H POC Glucose 130 H OUTPATIENT ANTIDIABETIC REGIMEN: * N/A * recently on steroids * HbA1C = 8.1% ASSESSMENT: * Mr Rosas is a 76 y/o M with a PMH of T2DM who presents with hyperglycemia. Patient initiated on insulin infusion in ER for BSGs > 500 mg/dL. * Patient given 10 units of Lantus in the AM of 05/28 and transitioned off insulin infusion. * Patient currently NPO. * BSGs today are 194-130 mg/dL. Patient received two units of correction at midnight and 0600. * Will dose Lantus tomorrow morning based upon fasting BSG. * Novolog weight-based stress of 3. PLAN FOR INPATIENT GLYCEMIC CONTROL: * Basal insulin * HOLD * Bolus insulin * NovoLog per scale ACHS or Q6hrs while NPO * Goal Range: Low 120 mg/dL - High 160 mg/dL * Correction Factor: 25 mg/dL/unit * Nutritional / Prandial insulin per carb ratio of 1 unit per 8 grams CHO consumed
[2022-05-28 16:50] LABS: BUN Creatinine Ratio 36.4 (10-20); Est GFR (African American) 29.2 ml/min; Est GFR (Non-African American) 25.2 ml/min; Magnesium 2.1 mg/dl (1.7-2.4); Phosphorus 3.8 mg/dl (2.5-4.9); Potassium 4.2 mmol/L (3.5-5.1)
[2022-05-28] MEDS ORDERED: oxyCODONE HCL IR 5 MG TAB (IMMEDIATE RELEASE) PO PRN (19:22)
[2022-05-29] MEDS: GABAPENTIN 300 MG CAP PO SCH ×3 (08:50→22:17)
[2022-05-29] MEDS: INSULIN ASPART PER UNIT SC SCH ×4 (08:51→22:17)
[2022-05-29] MEDS ORDERED: LANTUS PER UNIT CHARGE SQ SCH (09:00)
[2022-05-29 10:15] LABS: Hematocrit (blood only) 38.3 % (40.1-51.0); Hemoglobin 12.8 g/dl (14.0-18.0); Mean Corpuscular Hgb Conc 33.4 g/dL (32.0-36.0); Mean Corpuscular Volume 89.9 fL (80.0-100.0); Mean Platelet Volume 11.5 fL (9.4-12.4); Platelet Count 119 K/uL (130-400); RDW Standard Deviation 45.5 fL (36.4-46.3); Red Blood Count 4.26 M/uL (4.63-6.08); White Blood Count 11.53 K/ul (4.8-10.8)
[2022-05-29 10:38] LABS: Albumin Level 2.8 gm/dl (3.4-5.0); BUN Creatinine Ratio 33.5 (10-20); Bilirubin,Total 0.7 mg/dl (0.2-1.0); Calcium 8.8 mg/dl (8.5-10.1); Creatinine Clr Calc Pharmacy 22.8 ml/min; Est GFR (African American) 28.4 ml/min; Est GFR (Non-African American) 24.5 ml/min; Globulin 2.9 gm/dl (2.5-4.0); Potassium 4.3 mmol/L (3.5-5.1); Total Protein 5.7 gm/dl (6.0-8.3)
[2022-05-29 10:53] LABS: Dohle Bodies 1+; Echinocytes 2+
[2022-05-29 11:03] LABS: Basophils # (auto) 0.01 K/uL (0-0.2); Basophils % (auto) 0.1 %; Immature Granulocytes # (auto) 0.11 K/uL (0.00-0.02); Lymphocytes # (auto) 0.21 K/uL (1.2-3.4); Lymphocytes % (auto) 1.8 %; Monocytes # (auto) 0.48 K/uL (0.24-0.82); Monocytes % (auto) 4.2 %; Neutrophils # (auto) 10.72 K/uL (1.4-6.5); Neutrophils % (auto) 92.9 %
--- NOTE | 2022-05-29 11:56 | Pharmacy Report ---
Pharmacy Glycemic Short Note 2 - Date of Service May 29, 2022 - Glycemic Short BSG Results (Last 24 hours): 05/28/22 05/28/22 05/28/22 11:35 11:52 16:14 Glucose 125 H 226 H POC Glucose 130 H 05/28/22 05/28/22 05/29/22 16:56 20:30 07:53 Glucose POC Glucose 226 H 291 H 127 H 05/29/22 05/29/22 09:24 11:32 Glucose 280 H POC Glucose 214 H OUTPATIENT ANTIDIABETIC REGIMEN: * N/A * recently on steroids * HbA1C = 8.1% ASSESSMENT: * BSGs yesterday were 012-585-083-291 mg/dL. Patient received 25 units of insulin yesterday (10 units of basal and 15 units of bolus). * BSGs today are 127-214 mg/dL. * Continue Lantus 10 units for today ... scale for tomorrow titrating upwards by 10% and 20% for elevated BSGs. * Tighten CR as BSGs trend upwards through the day. Background * Mr Rosas is a 76 y/o M with a PMH of T2DM who presents with hyperglycemia. Patient initiated on insulin infusion in ER for BSGs > 500 mg/dL. * Patient given 10 units of Lantus in the AM of 05/28 and transitioned off insulin infusion. * Patient currently NPO. * BSGs today are 194-130 mg/dL. Patient received two units of correction at midnight and 0600. * Will dose Lantus tomorrow morning based upon fasting BSG. * Novolog weight-based stress of 3. PLAN FOR INPATIENT GLYCEMIC CONTROL: * Basal insulin * Lantus 10 units SQ daily (12 units for BSG 140-180; 15 units for BSG > 180 mg/dL) * Bolus insulin * NovoLog per scale ACHS or Q6hrs while NPO * Goal Range: Low 120 mg/dL - High 160 mg/dL * Correction Factor: 20 mg/dL/unit * Nutritional / Prandial insulin per carb ratio of 1 unit per 5 grams CHO consumed
--- NOTE | 2022-05-29 12:12 | Hospitalist Progress Note ---
Date of Service May 29, 2022 Assessment & Plan (1) Acute pyelonephritis: Plan: New CVA tenderness right sided the last 2 weeks consistent with acute pyelonephritis in setting of positive urine culture Take Blood cultures now. Follow up prior urine culture - growing GNB. IV ceftriaxone. Will continue to observe in hospital for 48 hours for blood culture results and assess response. (2) DKA (diabetic ketoacidosis): Plan: Now resolved - Patient has previous diabetic, off medications for 10 years, however recently started on p.o. steroids for relief of his pain due to cancer. - Admitting glucose 526, bicarb 19, AG 13, potassium 5.2. pH on VBG's 7.27. Anion gap now closed and transitioned to SQ insulin per glycemic consult. HbA1C 8.1 in setting of x2 recent dexamethasone courses - suspect moving forward this can be controlled with oral diabetes medications (3) Mnrhy-lv-ohridot kidney injury: Plan: - Cr 2.80, baseline 1.3- 1.6. Due to dehydration 2/2 DKA. -Beginning to downtrend with aggressive fluid resuscitation, 2.45 05/28 Patient is uremic in the setting of severe JUANCHO, BUN initially up to 100 now downtrending to 90 with baseline in the 30s. Suspect his muscle spasms are due to uremia. Patient is on hospice, dialysis not consistent with goals of care and he has improving urine output with IV fluids and downtrending creatinine. Will continue fluid support, will start clears as tolerated, BSG control as noted. - stop IV fluids and continue to monitor Cr (4) Generalized weakness: Plan: - 2/2 dehydration from DKA, metastatic cancer, uremia. Suspect he also has acute pyelonephritis as above. 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 T3NxM1, post 5-FU/radiation, post resection of liver lesion, FOLFIRI+avastatin. 12/06/2020 referred for chemotherapy/radiation therapy consultation with iliac and pelvic mets. mFOLFOX with subsequent severe abdominal pain and nausea. Did not wish to Continue further treatment past this, increase fentanyl patch for pain instructions and to hospice following 02/18/2021. - On hospice care, no current treatment, focus on pain management/symptom relief. - Pain regimen includes morphine prn, lorazepam at night prn for agitation, ibuprofen 600 mg TID prn, dexamethasone 6 mg PO daily, and fentanyl patch 362mg (100 mg patches x3, 50 mg patch x1, 12 mg patch x1) mg every 48 hours applied to either arm, last applied to L upper arm 05/27. Plan - Continue on PCU. - SCDs for VTE ppx. - DNR/DNI. Admission and Anticipated Discharge Date Admission Date: May 27, 2022 Subjective Multiple concerns from his daughter in the room. He has not been receiving his usual pain medications and usually takes oxycodone regularly 60mg every 4 hours rather than as needed as his pain had not been controlled. This pain is mostly radicular pain going down his legs. Dexamethasone has helped with his pain. However his new pain on his right back is different from his chronic pain and new the last few weeks. This has been getting worse since admission. No dysuria. He reportedly had some low grade fevers at home and new onset weakness and confusions. Urine culture here growing GNB but initially thought to be contaminant since the patient intermittently self catheters. Pain on right side currently 7/10. On his usual pain medication usually around 3/10. Review of Systems Review of Systems: All systems reviewed & are unremarkable except as noted in Subjective Physical Exam Constitutional: well developed and + frail appearing; + not well nourished Eyes: PERRL, conjunctivae normal, anicteric sclerae Respiratory: normal respiratory effort, lungs clear to auscultation Cardiovascular: RRR, no murmur, no edema Gastrointestinal (Abdomen): Inspection/Auscultation: normal bowel sounds Percussion/Palpation: abdomen soft; abdomen nontender, no guarding and abdomen not rigid Skin: no rashes, warm and dry Psychiatric: A+Ox3, euthymic affect Genitourinary: + CVA tenderness (right) Results & Data Results & Data ([facility]) Vital Signs (Past 12 Hours) Vital Signs Temp Pulse Pulse Resp BP Pulse Ox O2 Del Method 05/29/22 07:31 36.7 C 62 20 138/62 92 Room Air 05/29/22 07:46 66 05/29/22 02:59 36.4 C L 66 16 120/68 96 Room Air PG Care Time/CCT Total # of Minutes Spent Total Time Spent with Patient: Total time spent is greater than 50% in coordination of care (as documented) at patient's floor/unit and/or counseling patient: Coding Level of Care Code 56327 Subseq Hosp Care Lvl 3 Diagnoses Acute pyelonephritis N10 DKA (diabetic ketoacidosis) E11.10 Znsgs-ps-dsxwudi kidney injury N17.9; N18.9 Generalized weakness R53.1 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
[2022-05-29] MEDS ORDERED: Nursing to Pharmacy Communication SCH (12:15)
[2022-05-29] MEDS: fentaNYL 100 MCG/HR TDSY TD SCH (12:57)
[2022-05-29] MEDS: fentaNYL 12 MCG/HR TDSY TD SCH (12:57)
[2022-05-29] MEDS: fentaNYL 50 MCG/HR TDSY TD SCH (12:58)
[2022-05-29] MEDS: oxyCODONE HCL IR 30 MG TAB (IMMEDIATE RELEASE) PO PRN ×3 (12:58→22:17)
[2022-05-29] MEDS: cefTRIAXone SODIUM 1,000 MG in DEXTROSE 5% 50 ML IV SCH (14:43)
[2022-05-29] MEDS ORDERED: CHECK fentaNYL PATCH PLACEMENT SCH ×2 (16:00→20:00)
[2022-05-29] MEDS: CHECK fentaNYL PATCH PLACEMENT SCH (16:09)
[2022-05-29] MEDS ORDERED: fentaNYL 12 MCG/HR TDSY TD SCH (20:00)
[2022-05-29] MEDS ORDERED: fentaNYL 50 MCG/HR TDSY TD SCH (20:00)
[2022-05-29] MEDS ORDERED: fentaNYL 100 MCG/HR TDSY TD SCH (20:00)
[2022-05-30] MEDS: CHECK fentaNYL PATCH PLACEMENT SCH ×4 (00:01→23:19)
[2022-05-30] MEDS: oxyCODONE HCL IR 30 MG TAB (IMMEDIATE RELEASE) PO PRN ×3 (05:43→15:48)
[2022-05-30 06:47] LABS: BUN Creatinine Ratio 29.7 (10-20); Calcium 9.1 mg/dl (8.5-10.1); Creatinine Clr Calc Pharmacy 20.1 ml/min; Est GFR (African American) 24.2 ml/min; Est GFR (Non-African American) 20.9 ml/min; Potassium 4.1 mmol/L (3.5-5.1)
[2022-05-30 07:14] LABS: Basophils # (auto) 0.01 K/uL (0-0.2); Basophils % (auto) 0.1 %; Echinocytes 2+; Eosinophils # (auto) 0.01 K/uL (0-0.50); Eosinophils % (auto) 0.1 %; Hematocrit (blood only) 36.6 % (40.1-51.0); Hemoglobin 12.4 g/dl (14.0-18.0); Immature Granulocytes # (auto) 0.04 K/uL (0.00-0.02); Immature Granulocytes % (auto) 0.4 %; Lymphocytes # (auto) 0.28 K/uL (1.2-3.4); Lymphocytes % (auto) 2.9 %; Mean Corpuscular Hemoglobin 30.2 pg (25.0-34.0); Mean Corpuscular Hgb Conc 33.9 g/dL (32.0-36.0); Mean Corpuscular Volume 89.3 fL (80.0-100.0); Mean Platelet Volume 11.6 fL (9.4-12.4); Monocytes # (auto) 0.48 K/uL (0.24-0.82); Neutrophils # (auto) 8.86 K/uL (1.4-6.5); Neutrophils % (auto) 91.5 %; Platelet Count 128 K/uL (130-400); RDW Standard Deviation 46.4 fL (36.4-46.3); White Blood Count 9.68 K/ul (4.8-10.8)
[2022-05-30] MEDS: INSULIN ASPART PER UNIT SC SCH ×4 (08:47→21:57)
[2022-05-30] MEDS: LANTUS PER UNIT CHARGE SQ SCH (08:48)
[2022-05-30] MEDS: GABAPENTIN 300 MG CAP PO SCH ×3 (08:48→21:57)
[2022-05-30] MEDS: HEPARIN SOD 5,000 UNIT/0.5 ML VIAL SQ SCH ×2 (10:04→21:57)
[2022-05-30] MEDS: LACTATED RINGER'S 1,000 ML IV SCH ×2 (10:04→17:29)
--- NOTE | 2022-05-30 11:58 | Hospitalist Progress Note ---
Date of Service May 30, 2022 Assessment & Plan (1) Acute pyelonephritis: Plan: New CVA tenderness right sided the last 2 weeks consistent with acute pyelonephritis in setting of positive urine culture Follow up prior urine culture - growing GNB. IV ceftriaxone. Will continue to observe in hospital for 24 hours for blood culture results and assess response. (2) DKA (diabetic ketoacidosis): Plan: Now resolved - Patient has previous diabetic, off medications for 10 years, however recently started on p.o. steroids for relief of his pain due to cancer. - Admitting glucose 526, bicarb 19, AG 13, potassium 5.2. pH on VBG's 7.27. Anion gap now closed and transitioned to SQ insulin per glycemic consult. HbA1C 8.1 in setting of x2 recent dexamethasone courses - suspect moving forward this can be controlled with oral diabetes medications (3) Igxrw-yv-vfnlzno kidney injury: Plan: - Cr 2.80, baseline 1.3- 1.6. Due to dehydration 2/2 DKA. -Beginning to downtrend with aggressive fluid resuscitation, 2.45 05/28 Patient is uremic in the setting of severe JUANCHO, BUN initially up to 100 now downtrending to 90 with baseline in the 30s. Suspect his muscle spasms are due to uremia. Patient is on hospice, dialysis not consistent with goals of care and he has improving urine output with IV fluids and downtrending creatinine. - Cr worse today. Will place back on IV LR incase this is still a fluid issue. He has known bilateral hydronephrosis from his tumor but given he has elected not to treat this no need for reimaging but this might explain why his Cr is not returning to February baseline. (4) Generalized weakness: Plan: - 2/2 dehydration from DKA, metastatic cancer, uremia. Suspect he also has acute pyelonephritis as above. 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 T3NxM1, post 5-FU/radiation, post resection of liver lesion, FOLFIRI+avastatin. 12/06/2020 referred for chemotherapy/radiation therapy consultation with iliac and pelvic mets. mFOLFOX with subsequent severe abdominal pain and nausea. Did not wish to Continue further treatment past this, increase fentanyl patch for pain instructions and to hospice following 02/18/2021. - On hospice care, no current treatment, focus on pain management/symptom relief. - Pain regimen includes morphine prn, lorazepam at night prn for agitation, ibuprofen 600 mg TID prn, dexamethasone 6 mg PO daily, and fentanyl patch 362mg (100 mg patches x3, 50 mg patch x1, 12 mg patch x1) mg every 48 hours applied to either arm, last applied to L upper arm 05/27. Plan - Continue on PCU. - SCDs for VTE ppx. - DNR/DNI. Admission and Anticipated Discharge Date Admission Date: May 27, 2022 Subjective feels he is a little weaker today, generalized confusion still the same. The patient feels mostly the same. Right CVA tenderness improved but he thinks this is just down to him receiving his usual pain medications. No abdominal pain, nausea or vomiting. Review of Systems Review of Systems: All systems reviewed & are unremarkable except as noted in HPI & below Physical Exam Constitutional: well developed and + frail appearing; + not well nourished Respiratory: normal respiratory effort, lungs clear to auscultation Cardiovascular: RRR, no murmur, no edema Gastrointestinal (Abdomen): Inspection/Auscultation: normal bowel sounds Percussion/Palpation: abdomen soft; abdomen nontender, no guarding and abdomen not rigid Skin: no rashes, warm and dry Psychiatric: A+Ox3, euthymic affect Genitourinary: + CVA tenderness (right) Results & Data Results & Data ([facility]) Vital Signs (Past 12 Hours) Vital Signs Temp Pulse Pulse Resp BP BP Pulse Ox 05/30/22 11:25 37.0 C 58 L 17 135/58 L 96 05/30/22 09:47 54 L 05/30/22 07:22 37.0 C 70 17 118/61 93 05/30/22 03:47 36.6 C 65 16 128/59 L 96 05/30/22 00:44 36.6 C 70 14 112/62 96 O2 Del Method 05/30/22 11:25 Room Air 05/30/22 09:47 05/30/22 07:22 Room Air 05/30/22 03:47 Room Air 05/30/22 00:44 Room Air PG Care Time/CCT Total # of Minutes Spent Total Time Spent with Patient: Total time spent is greater than 50% in coordination of care (as documented) at patient's floor/unit and/or counseling patient: Coding Level of Care Code 42888 Subseq Hosp Care Lvl 2 Diagnoses Acute pyelonephritis N10 DKA (diabetic ketoacidosis) E11.10 Rmldz-vj-tvazhpy kidney injury N17.9; N18.9 Generalized weakness R53.1 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
[2022-05-30] MEDS: cefTRIAXone SODIUM 1,000 MG in DEXTROSE 5% 50 ML IV SCH (12:55)
[2022-05-31] MEDS: LACTATED RINGER'S 1,000 ML IV SCH ×3 (01:34→17:55)
[2022-05-31] MEDS: CHECK fentaNYL PATCH PLACEMENT SCH ×2 (08:50→15:13)
[2022-05-31] MEDS: GABAPENTIN 300 MG CAP PO SCH ×3 (08:50→21:48)
[2022-05-31] MEDS: LANTUS PER UNIT CHARGE SQ SCH (08:50)
[2022-05-31] MEDS: HEPARIN SOD 5,000 UNIT/0.5 ML VIAL SQ SCH ×2 (08:50→21:51)
[2022-05-31] MEDS: INSULIN ASPART PER UNIT SC SCH ×4 (08:51→21:53)
[2022-05-31] MEDS: oxyCODONE HCL IR 30 MG TAB (IMMEDIATE RELEASE) PO PRN ×4 (08:55→22:50)
[2022-05-31 10:07] LABS: Hematocrit (blood only) 34.7 % (40.1-51.0); Hemoglobin 11.8 g/dl (14.0-18.0); Mean Corpuscular Hemoglobin 30.6 pg (25.0-34.0); Mean Corpuscular Volume 89.9 fL (80.0-100.0); Platelet Count 116 K/uL (130-400); RDW Standard Deviation 45.4 fL (36.4-46.3); Red Blood Count 3.86 M/uL (4.63-6.08); White Blood Count 8.57 K/ul (4.8-10.8)
[2022-05-31 10:25] LABS: Basophils # (auto) 0.02 K/uL (0-0.2); Basophils % (auto) 0.2 %; Dohle Bodies 1+; Echinocytes 2+; Eosinophils # (auto) 0.01 K/uL (0-0.50); Eosinophils % (auto) 0.1 %; Immature Granulocytes # (auto) 0.08 K/uL (0.00-0.02); Immature Granulocytes % (auto) 0.9 %; Lymphocytes # (auto) 0.15 K/uL (1.2-3.4); Lymphocytes % (auto) 1.8 %; Monocytes # (auto) 0.36 K/uL (0.24-0.82); Monocytes % (auto) 4.2 %; Neutrophils # (auto) 7.95 K/uL (1.4-6.5); Neutrophils % (auto) 92.8 %
[2022-05-31 10:26] LABS: Calcium 8.5 mg/dl (8.5-10.1); Est GFR (African American) 22.8 ml/min; Est GFR (Non-African American) 19.7 ml/min; Potassium 3.4 mmol/L (3.5-5.1)
[2022-05-31] MEDS: cefTRIAXone SODIUM 1,000 MG in DEXTROSE 5% 50 ML IV SCH (12:26)
--- NOTE | 2022-05-31 18:24 | CT Scan Report ---
ABDOMEN AND PELVIS CT WITHOUT CONTRAST CT DOSE: 282.62 mGy.cm HISTORY: Acute kidney injury. TECHNIQUE: Multiaxial CT images of the abdomen and pelvis were performed without contrast. A dose lo wering technique was utilized adhering to the principles of ALARA. COMPARISON STUDY: Abdomen and pelvis CT 02/11/2021. FINDINGS: There is interval development of a small right pleural effusion. Right lower lobe densities consistent with subsegmental atelectasis. There is a new 3.7 cm lytic lesion within the right inferi or pubic bone. Diffuse body wall edema. The small fat-containing left inguinal hernia containing a kn uckle of small bowel and fluid. Right pelvic sidewall infiltrative mass is again noted. This is simil ar to the prior study. The unenhanced liver, spleen, adrenal glands, pancreas appear unremarkable. Th ere is moderate left hydroureteronephrosis, unchanged. Mild bladder wall thickening is also unchanged . Interval progression of the severe right hydroureteronephrosis to the level of the deep pelvis with probable obstruction from the right pelvic sidewall mass. There is layering hyperdense material with in the dilated right renal collecting system which could represent stasis or blood products. There is urothelial thickening within the right renal Greta system and right ureter. There are scattered foci of extraluminal gas within the right perinephric space and adjacent to the right renal pelvis and pr oximal to mid right ureter. There is associated inflammatory change at this location. This gas also a buts the second portion of duodenum which appears slightly thickened. Therefore, perforated duodenal ulcer is considered less likely but not entirely excluded. Left lower quadrant colostomy with a emery tomal hernia containing multiple loops of large and small bowel. No dilated loops of bowel to suggest an obstruction. IMPRESSION: 1. Interval progression of the severe right hydroureteronephrosis with the obstruction likely seconda ry to the infiltrative right pelvic sidewall mass. 2. There is interval development of scattered foci of gas within the right lower perinephric space an d surrounding the right ureteropelvic junction. There is associated inflammatory change at this locat ion. Therefore, this favors an infectious process from a gas-forming organism. However, the gas and i nflammation also abuts the second portion of the duodenum which is slightly thickened. This may be re active. However, a perforated duodenal ulcer could also have a similar appearance. 3. Moderate left hydroureteronephrosis, unchanged. 4. Interval development of a lytic lesion within the right inferior pubic bone consistent with metast atic disease. 5. Small right pleural effusion. 6. Additional findings as described above. ACT 112: Negative or not required by law. Electronically signed by: Pradeep Foley M.D. 05/31/2022 6:23 PM
--- NOTE | 2022-05-31 18:40 | Hospitalist Progress Note ---
Date of Service May 31, 2022 Assessment & Plan (1) Acute pyelonephritis: Plan: New CVA tenderness right sided the last 2 weeks consistent with acute pyelonephritis in setting of positive urine culture Follow up prior urine culture - growing pansensitive E. Coli. IV ceftriaxone. Continued admission due to worsening JUANCHO (2) DKA (diabetic ketoacidosis): Plan: Now resolved - Patient has previous diabetic, off medications for 10 years, however recently started on p.o. steroids for relief of his pain due to cancer. - Admitting glucose 526, bicarb 19, AG 13, potassium 5.2. pH on VBG's 7.27. Anion gap now closed and transitioned to SQ insulin per glycemic consult. HbA1C 8.1 in setting of x2 recent dexamethasone courses - suspect moving forward this can be controlled with oral diabetes medications (3) Ooeqc-ar-dvhnrbv kidney injury: Plan: - Cr 2.80, baseline 1.3- 1.6. Due to dehydration 2/2 DKA. -Beginning to downtrend with aggressive fluid resuscitation, 2.45 05/28 Patient is uremic in the setting of severe JUANCHO, BUN initially up to 100 now downtrending to 90 with baseline in the 30s. Suspect his muscle spasms are due to uremia. Patient is on hospice, dialysis not consistent with goals of care and he has improving urine output with IV fluids and downtrending creatinine. - Cr worse today despite IV fluids 2.79 -> 2.93. Will get Ct A/P without IV contrast to assess for obstruction. Not performing regular CIC as he usually would at home either - doing it only intermittently here which may explain his worsening Cr. CIC QID - patient has own equipment, continue IV fluids. (4) Generalized weakness: Plan: - 2/2 dehydration from DKA, metastatic cancer, uremia. Suspect he also has acute pyelonephritis as above. 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 T3NxM1, post 5-FU/radiation, post resection of liver lesion, FOLFIRI+avastatin. 12/06/2020 referred for chemotherapy/radiation therapy consultation with iliac and pelvic mets. mFOLFOX with subsequent severe abdominal pain and nausea. Did not wish to Continue further treatment past this, increase fentanyl patch for pain instructions and to hospice following 02/18/2021. - On hospice care, no current treatment, focus on pain management/symptom relief. - Pain regimen includes morphine prn, lorazepam at night prn for agitation, ibuprofen 600 mg TID prn, dexamethasone 6 mg PO daily, and fentanyl patch 362mg (100 mg patches x3, 50 mg patch x1, 12 mg patch x1) mg every 48 hours applied to either arm, last applied to L upper arm 05/27. Plan - Continue on PCU. - Heparin 5000 units SQ BID - DNR/DNI. Admission and Anticipated Discharge Date Admission Date: May 27, 2022 Subjective Patient feels much improved today after 2 days of IV antibiotics. CVA tenderness still present but improved. He has more energy and less weak. No fever or chills. Review of Systems Review of Systems: All systems reviewed & are unremarkable except as noted in Subjective Physical Exam Constitutional: well developed and + frail appearing; + not well nourished Respiratory: normal respiratory effort, lungs clear to auscultation Cardiovascular: RRR, no murmur, no edema Gastrointestinal (Abdomen): Inspection/Auscultation: normal bowel sounds Percussion/Palpation: abdomen soft; abdomen nontender, no guarding and abdomen not rigid Skin: no rashes, warm and dry Psychiatric: A+Ox3, euthymic affect Genitourinary: + CVA tenderness (right) Results & Data Results & Data ([facility]) Vital Signs (Past 12 Hours) Vital Signs Temp Pulse Resp BP Pulse Ox O2 Del Method 05/31/22 15:53 36.9 C 60 16 137/65 93 Room Air 05/31/22 11:03 36.8 C 85 16 150/72 H 97 Room Air 05/31/22 07:06 36.9 C 64 18 142/67 H 95 Room Air PG Care Time/CCT Total # of Minutes Spent Total Time Spent with Patient: Total time spent is greater than 50% in coordination of care (as documented) at patient's floor/unit and/or counseling patient: Coding Level of Care Code 09195 Subseq Hosp Care Lvl 3 Diagnoses Acute pyelonephritis N10 DKA (diabetic ketoacidosis) E11.10 Oyunv-oa-prqkjbi kidney injury N17.9; N18.9 Generalized weakness R53.1 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
--- NOTE | 2022-05-31 21:22 | Electrocardiogram Report ---
Test Reason : Blood Pressure : / mmHG Vent. Rate : 059 BPM Atrial Rate : 059 BPM P-R Int : 186 ms QRS Dur : 112 ms QT Int : 400 ms P-R-T Axes : 010 -58 037 degrees QTc Int : 396 ms Sinus bradycardia Left anterior fascicular block Abnormal ECG When compared with ECG of 27-MAY-2022 16:08, No significant change was found Confirmed by Prakash Bojorquez ([id number]) on 05/31/2022 9:21:58 PM Referred By: REFERRED SELF Confirmed By:Prakash Bojorquez
[2022-06-01] MEDS: CHECK fentaNYL PATCH PLACEMENT SCH ×3 (00:12→16:39)
[2022-06-01] MEDS: LACTATED RINGER'S 1,000 ML IV SCH ×2 (00:52→13:05)
[2022-06-01 06:29] LABS: BUN Creatinine Ratio 27.3 (10-20); Calcium 8.4 mg/dl (8.5-10.1); Creatinine Clr Calc Pharmacy 22.3 ml/min; Est GFR (African American) 26.4 ml/min; Est GFR (Non-African American) 22.8 ml/min; Potassium 3.7 mmol/L (3.5-5.1)
[2022-06-01] MEDS: oxyCODONE HCL IR 30 MG TAB (IMMEDIATE RELEASE) PO PRN ×3 (06:38→15:16)
[2022-06-01] MEDS: HEPARIN SOD 5,000 UNIT/0.5 ML VIAL SQ SCH (09:00)
[2022-06-01] MEDS: INSULIN ASPART PER UNIT SC SCH ×4 (09:00→21:48)
[2022-06-01] MEDS ORDERED: LANTUS PER UNIT CHARGE SQ SCH (09:00)
[2022-06-01] MEDS: GABAPENTIN 300 MG CAP PO SCH ×3 (09:01→21:52)
[2022-06-01] MEDS: fentaNYL 50 MCG/HR TDSY TD SCH (09:04)
[2022-06-01] MEDS: fentaNYL 12 MCG/HR TDSY TD SCH (09:04)
[2022-06-01] MEDS: fentaNYL 100 MCG/HR TDSY TD SCH (09:04)
[2022-06-01] MEDS ORDERED: PANTOprazole 40 MG in SYRINGE 0 ML IV ONE (12:00)
--- NOTE | 2022-06-01 12:06 | Pharmacy Report ---
Pharmacy Glycemic Short Note 2 - Date of Service June 01, 2022 - Glycemic Short BSG Results (Last 24 hours): 05/31/22 05/31/22 06/01/22 11:53 16:42 05:15 Glucose 72 POC Glucose 156 H 133 H 06/01/22 07:41 Glucose POC Glucose 120 H OUTPATIENT ANTIDIABETIC REGIMEN: * N/A * recently on steroids * HbA1C = 8.1% ASSESSMENT: 06/01/22 * BSGs yesterday were 48-521-557-173 mg/dL. Fasting was 72 mg/dL on PRP and 120 on POC. * Patient received 50 units of insulin (8 units of basal and 42 units of bolus). * Will reduce basal by 20% to 5 units of Lantus for now as PRP BSG continues to trend down. * Novolog adjusted yesterday to have tighter coverage throughout the day but looser at breakfast/evening. BSGs appeared well controlled yesterday so will continue. 05/29/22 * BSGs yesterday were 308-853-533-291 mg/dL. Patient received 25 units of insulin yesterday (10 units of basal and 15 units of bolus). * BSGs today are 127-214 mg/dL. * Continue Lantus 10 units for today ... scale for tomorrow titrating upwards by 10% and 20% for elevated BSGs. * Tighten CR as BSGs trend upwards through the day. Background * Mr Rosas is a 76 y/o M with a PMH of T2DM who presents with hyperglycemia. Patient initiated on insulin infusion in ER for BSGs > 500 mg/dL. * Patient given 10 units of Lantus in the AM of 05/28 and transitioned off insulin infusion. * Patient currently NPO. * BSGs today are 194-130 mg/dL. Patient received two units of correction at midnight and 0600. * Will dose Lantus tomorrow morning based upon fasting BSG. * Novolog weight-based stress of 3. PLAN FOR INPATIENT GLYCEMIC CONTROL: * Basal insulin * Lantus 5 units SQ daily * Bolus insulin * NovoLog per scale ACHS or Q6hrs while NPO * Goal Range: Low 120 mg/dL - High 160 mg/dL * Correction Factor: 20 mg/dL/unit * Nutritional / Prandial insulin per carb ratio of 1 unit per 4 grams CHO consumed (per 5 grams CHO consumed with breakfast and HS)
--- NOTE | 2022-06-01 12:07 | Hospitalist Progress Note ---
Date of Service June 01, 2022 Assessment & Plan (1) Acute pyelonephritis: Plan: New CVA tenderness right sided the last 2 weeks consistent with acute pyelonephritis in setting of positive urine culture Follow up prior urine culture - growing pansensitive E. Coli. IV ceftriaxone. CT concerning for progression of mass causing severe hydronephrosis and likely to lead to ongoing infections - discussed with urology and recommended stent only if pain or infection not controlled but could cause more harm than good and would be need to be permanently replaced every few months. (2) Abnormal CT of the abdomen: Plan: Concern for possible perforated duodenal ulcer on CT. Discussed with surgery and recommended CT with oral contrast which showed the same. Discussed with patient and his and wishing for surgical input at this time therefore will consult surgery. Start pantoprazole 40mg PO daily. (3) DKA (diabetic ketoacidosis): Plan: Now resolved - Patient has previous diabetic, off medications for 10 years, however recently started on p.o. steroids for relief of his pain due to cancer. - Admitting glucose 526, bicarb 19, AG 13, potassium 5.2. pH on VBG's 7.27. Anion gap now closed and transitioned to SQ insulin per glycemic consult. HbA1C 8.1 in setting of x2 recent dexamethasone courses - suspect moving forward this can be controlled with oral diabetes medications (4) Amblp-zv-xylhoso kidney injury: Plan: - Cr 2.80, baseline 1.3- 1.6. Due to dehydration 2/2 DKA. -Beginning to downtrend with aggressive fluid resuscitation, 2.45 8/18 Patient is uremic in the setting of severe JUANCHO, BUN initially up to 100 now downtrending to 90 with baseline in the 30s. Suspect his muscle spasms are due to uremia. Patient is on hospice, dialysis not consistent with goals of care and he has improving urine output with IV fluids and downtrending creatinine. - Cr improved with more consistent intermittent catheterization. However CT concerning for worsening hydronephrosis secondary to mass effect. Discussion with urology as above. (5) Generalized weakness: Plan: - 2/2 dehydration from DKA, metastatic cancer, uremia. Suspect he also has acute pyelonephritis as above. 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 T3NxM1, post 5-FU/radiation, post resection of liver lesion, FOLFIRI+avastatin. 12/06/2020 referred for chemotherapy/radiation therapy consultation with iliac and pelvic mets. mFOLFOX with subsequent severe abdominal pain and nausea. Did not wish to Continue further treatment past this, increase fentanyl patch for pain instructions and to hospice following 02/18/2021. - On hospice care, no current treatment, focus on pain management/symptom relief. - Pain regimen includes morphine prn, lorazepam at night prn for agitation, ibuprofen 600 mg TID prn, dexamethasone 6 mg PO daily, and fentanyl patch 362mg (100 mg patches x3, 50 mg patch x1, 12 mg patch x1) mg every 48 hours applied to either arm, last applied to L upper arm 05/27. Plan - Continue on PCU. - Heparin 5000 units SQ BID - DNR/DNI. Admission and Anticipated Discharge Date Admission Date: May 27, 2022 Subjective Appears to be doing much worse than yesterday. Increased abdominal pain throughout the day. He is unable to tell me when his pain started but appears to be getting worse throughout the day. No nausea or vomiting. We discussed CT findings concerning for duodenal ulcer and whether he would want surgical intervention for this and they wished to have a surgery opinion but unlikely to want surgery if it came down to this. Review of Systems Review of Systems: All systems reviewed & are unremarkable except as noted in Subjective Physical Exam Constitutional: well developed and + frail appearing; + not well nourished Eyes: PERRL, conjunctivae normal, anicteric sclerae Respiratory: normal respiratory effort, lungs clear to auscultation Cardiovascular: RRR, no murmur, no edema Gastrointestinal (Abdomen): Inspection/Auscultation: normal bowel sounds Percussion/Palpation: + abdomen tender (Suprapubic) and abdomen soft; no guarding and abdomen not rigid Skin: no rashes, warm and dry Psychiatric: A+Ox3, euthymic affect Genitourinary: + CVA tenderness (right) Results & Data Results & Data ([facility]) Vital Signs (Past 12 Hours) Vital Signs Temp Pulse Resp BP Pulse Ox O2 Del Method 06/01/22 07:21 37.4 C 62 14 133/69 95 Room Air PG Care Time/CCT Total # of Minutes Spent Total Time Spent with Patient: Total time spent is greater than 50% in coordination of care (as documented) at patient's floor/unit and/or counseling patient: Coding Level of Care Code 70602 Subseq Hosp Care Lvl 3 Diagnoses Acute pyelonephritis N10 Abnormal CT of the abdomen R93.5 DKA (diabetic ketoacidosis) E11.10 Ymrzu-xx-casurdo kidney injury N17.9; N18.9 Generalized weakness R53.1 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
[2022-06-01 13:00] LABS: Hematocrit (blood only) 32.3 % (40.1-51.0); Hemoglobin 11.2 g/dl (14.0-18.0); Mean Corpuscular Hemoglobin 30.6 pg (25.0-34.0); Mean Corpuscular Hgb Conc 34.7 g/dL (32.0-36.0); Mean Corpuscular Volume 88.3 fL (80.0-100.0); Mean Platelet Volume 11.2 fL (9.4-12.4); Platelet Count 116 K/uL (130-400); RDW Coefficient of Variation 14.2 % (11.5-14.5); RDW Standard Deviation 45.7 fL (36.4-46.3); Red Blood Count 3.66 M/uL (4.63-6.08)
[2022-06-01 13:23] LABS: Albumin Globulin Ratio 0.9 (0.9-2); Albumin Level 2.6 gm/dl (3.4-5.0); BUN Creatinine Ratio 25.6 (10-20); Bilirubin,Total 0.4 mg/dl (0.2-1.0); Calcium 8.4 mg/dl (8.5-10.1); Creatinine Clr Calc Pharmacy 21.2 ml/min; Est GFR (African American) 24.9 ml/min; Est GFR (Non-African American) 21.5 ml/min; Globulin 2.9 gm/dl (2.5-4.0); Potassium 3.3 mmol/L (3.5-5.1); Total Protein 5.5 gm/dl (6.0-8.3)
[2022-06-01 13:29] LABS: Basophils # (auto) 0.01 K/uL (0-0.2); Basophils % (auto) 0.1 %; Dohle Bodies 1+; Eosinophils # (auto) 0.04 K/uL (0-0.50); Eosinophils % (auto) 0.5 %; Immature Granulocytes % (auto) 1.1 %; Lymphocytes # (auto) 0.17 K/uL (1.2-3.4); Lymphocytes % (auto) 1.9 %; Monocytes # (auto) 0.42 K/uL (0.24-0.82); Monocytes % (auto) 4.8 %; Neutrophils # (auto) 8.06 K/uL (1.4-6.5); Neutrophils % (auto) 91.6 %; Toxic Granulation 2+
[2022-06-01] MEDS: cefTRIAXone SODIUM 1,000 MG in DEXTROSE 5% 50 ML IV SCH (14:15)
--- NOTE | 2022-06-01 15:39 | CT Scan Report ---
ABDOMEN AND PELVIS CT WITH ORAL CONTRAST CT DOSE: 529.20 mGycm HISTORY: Acute generalized abdominal pain worsening abdominal pain ?perforated ulcer TECHNIQUE: Multiaxial CT images of the abdomen and pelvis were performed following the use of oral co ntrast. A dose lowering technique was utilized adhering to the principles of ALARA. COMPARISON STUDY: CT abdomen pelvis 05/31/2022 at 4:51 PM. FINDINGS: Mild cardiomegaly. Small right pleural effusion. Bibasilar opacities favor atelectasis. Sca ttered calcified granulomata of the spleen. The spleen measures within the upper limits of normal in size. Unremarkable pancreas. Unremarkable adrenal glands. Unchanged appearance of the liver. The gall bladder is likely surgically absent. Progressively worsened left-sided hydroureteronephrosis which is now moderate to severe. Severe right -sided hydroureteronephrosis with right greater than left parenchymal thinning of the kidneys redemon strated. Scattered foci of air within the right lower perinephric space and surrounding the right ure teropelvic junction is redemonstrated along with inflammatory stranding and small amount of free flui d. Infiltrative right pelvic sidewall mass again noted. Unchanged appearance of the urinary bladder. Trace free pelvic fluid. Atherosclerosis of the aorta. No new or progressive lymphadenopathy. Small l eft inguinal hernia contains mesenteric fat and nonobstructed loop of bowel. Prior right inguinal her niorrhaphy. Tiny hiatal hernia. Wall thickening of the duodenum is redemonstrated. No duodenal mucosal perforatio n definitively seen. Left lower quadrant colostomy with associated parastomal hernia containing nonob structed loops of bowel. There is no bowel obstruction. Moderate fecal retention of the right hemicol on. Mild generalized body wall edema. Lytic infiltrative lesion within the right inferior pubic ramus . Nonspecific asymmetric edema within the right abductor musculature. IMPRESSION: 1. Severe right-sided hydroureteronephrosis redemonstrated with inflammatory stranding, small volume of free fluid and scattered foci of air within the right lower perinephric space and surrounding the right ureteropelvic junction, likely from gas forming organism however gas is again noted abutting th e thickened second portion of the duodenum. Perforated duodenal ulcer remains a differential consider ation. Findings could be correlated with endoscopy. 2. Moderate to severe left-sided hydroureteronephrosis. 3. Right pelvic sidewall mass redemonstrated. 4. Lytic infiltrative metastatic lesion of the right inferior pubic ramus. 5. Small right pleural effusion. 6. Additional findings as above. ACT 112: Negative or not required by law. The above report was generated using voice recognition software. It may contain grammatical, syntax o r spelling errors. Electronically signed by: Davey Cloud M.D. 06/01/2022 3:38 PM
--- NOTE | 2022-06-01 16:21 | Surgery Consultation ---
Date of Consultation June 01, 2022 Assessment & Plan (1) Abdominal pain: (2) Acute pyelonephritis: Plan 76 year-old male with recurrent metastatic adenocarcinoma with history of metastatic rectal adenocarcinoma in 2006 s/p neoadjuvant chemotherapy/radiation and surgical resection presented to ED with generalized weakness, falls, and diabetic ketoacidosis. CT scan of abdomen and pelvis showing severe right acute hydroureteronephrosis with the obstruction likely secondary to the infiltrative right pelvic sidewall mass and interval development of scattered foci of gas within the right lower perinephric space and surrounding the right ureteropelvic junction which abust the duodenum. Increase in abdominal pain today. Labs showing no leukctyosis and lactic acid wnl. Plan: No acute surgical intervention required at this time. Discussed imaging findings with patient and his and need for additional ct scan with oral contrast to further evaluate the small bowel for any perforation given his increase in pain, steroid use ,and increase in NSAID use for his pain management. Discussed the imaging findings and pain could be related to the severe right kidney infection. Will keep NPO for now Continue IV antibiotics continue current medical management Discussed with Dr. Guadalupe who is to evaluate patient later today after repeat CT scan examination. Addendum: 4:[address] scan of abd/pelvis with oral contrast showin. Severe right-sided hydroureteronephrosis redemonstrated with inflammatory stranding, small volume of free fluid and scattered foci of air within the right lower perinephric space and surrounding the right ureteropelvic junction, likely from gas forming organism however gas is again noted abutting the thickened second portion of the duodenum. Perforated duodenal ulcer remains a differential consideration. Findings could be correlated with endoscopy. Reviewed with Dr. Guadalupe. There is no sachi evidence of perforation with gross pneumoperitoneum. Given his metastatic disease, history of russ motherapy/radiation, and extensive surgical history would recommend further evaluation with endoscopy prior to any surgical intervention to rule out contained perforated duodenal ulcer. Could consider starting on PPI drip or BID Protonix given NSAID use and steroid use if patient does not want any further intervention. Supervising Physician Co-Signing Physician Notes I seen and examined the patient agree with the above assessment plan. Repeat CT scan demonstrates no definitive evidence of duodenal perforation. This is most likely a process involving the right kidney alone. Would recommend continued work-up from urology standpoint and treatment of pyelonephritis. If there is further concern for duodenal issues, he will need GI consult for upper endoscopy. We will sign off for now. Please call with any questions or concerns. History of Present Illness Reason for Consultation: ? duodenal perforation Requesting Physician: James Moran MD Attending Physician: James Moran MD History of Present Illness Yunior is a 76 year-old male with history of rectal adenocarcioma in 2006 s/p neoadjuvant chemotherapy and radiation followed by surgical resection and liver mets resection for stage IV disease who presented to ED on 05/27/2022 due to generalized weakness, falls, and elevated blood sugar in 500's. He is currently on hospice care for his recurrent metastatic adenocarcinoma. Had evidence of recurrent disease dating back to 10/2020 in which he had a right pelvic wall mass, lung nodules and bony lesion causing sciatica pain. He had radiation therapy and then attempted chemotherapy in which he did not tolerated and went on Hospice care in January of 2021. He was recently started on steroid about 1 month ago for his severe pain. His current pain regimen is ibuprofen 600 mg TID prn, dexamethasone 6 mg PO daily, and fentanyl patch 362mg (100 mg patches x3, 50 mg patch x1, 12 mg patch x1) mg every 72 hours, and morphine prn. states that he has been taking the Ibuprofen more frequently in last few weeks for his pain as well. Our services consulted for evaluation of possible duodenal perforation given CT scan findings. Most of the history above obtained per the and review of prior records. states that he was having a lot of pain this morning with some shaking. More so than what he was having yesterday. Yunior states the pain is generalized. No nausea or vomiting. Again history and ROS is limited and patient was very limited in answering any questions. Allergies Allergy/AdvReac Type Severity Reaction Status Date / Time No Known Allergies Allergy Verified 02/11/21 14:11 Home Medications Medication Instructions Recorded Confirmed Type fentanyl 50 mcg/hr transdermal 1 patch transdermal Q72H #10 ea 01/27/21 05/27/22 Rx patch dexamethasone 6 mg tablet 6 mg PO DAILY 05/27/22 05/27/22 History fentanyl 100 mcg/hr transdermal 05/27/22 History patch fentanyl 100 mcg/hr transdermal 1 patch transdermal Q72H pain 05/27/22 05/27/22 History patch fentanyl 12 mcg/hr transdermal 1 patch transdermal Q72H pain 05/27/22 05/27/22 History patch ibuprofen 600 mg tablet 600 mg PO TID 05/27/22 05/27/22 History lorazepam 2 mg/mL oral concentrate See Rx Instructions .Route 05/27/22 05/27/22 History .COMPLEX PRN Anxiety morphine concentrate 100 mg/5 mL See Rx Instructions .Route 05/27/22 05/27/22 History (20 mg/mL) oral solution .COMPLEX PRN Pain Patient History Medical History CKD (chronic kidney disease) Diabetes type 2, controlled controlled with diet GERD (gastroesophageal reflux disease) History of chemotherapy (~2005) for Rectal CA - 5-FU(with radiation) followed by 7 cycles of FOLFOX + Avastin, 12 Cycles of adjuvant FOLFIRI + Avastin (Finished 2007) History of liver cancer History of radiation therapy (11/25/06) for rectal CA (5580cGy from 10/12/06-11/25/06) History of skin cancer REMOVED FROM EAR Hyperlipidemia Hypertension Peripheral neuropathy Rectal adenocarcinoma (09/20/06) with solitary liver mets (T3N0M1) TIA (transient ischemic attack) ? EVENT "YEARS AGO" Urinary retention SELF CATH 4X PER DAY Surgical History H/O eye surgery (1979) METAL REMOVED H/O resection of liver (~04/2007) History of bowel resection (~04/2007) History of cataract surgery (2018) Right and Left History of cholecystectomy History of colonoscopy (07/2017) History of colostomy (04/2007) History of herniorrhaphy INGUINIAL History of tooth extraction Port-A-Cath in place (02/04/21) Insertion of Right Subclavian Infusaport(Right) - Sky Madsen MD, FACS Family History Mother , Passed age 98 of natural causes No problems noted. Father , Passed age 88 of "cardiac issues" Prostate cancer, Onset Age: 70 Brother No problems noted. Sister No problems noted. Daughter No problems noted. Son No problems noted. 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 Feels Safe at Home: Yes Safety Concerns: Feels Safe At This Time caffeine: Yes (coke zero ) during the past year weight has: remained stable Dental Care, Regularly: No Assistive Devices: Walker Physical Exam Constitutional: + frail appearing and cooperative; no acute distress, not ill appearing, not in distress and not combative Not in acute distress but looks uncomfortable Neck: normal visual inspection and trachea midline Respiratory: normal respiratory effort, lungs clear to auscultation Cardiovascular: RRR, no murmur, no edema Gastrointestinal (Abdomen): Inspection/Auscultation: + abdominal surgical scar (midline laparotomy scar) and + hypoactive bowel sounds; abdomen not distended and + abnormal bowel sounds Percussion/Palpation: + abdomen tender (generalized tenderness in the upper abdomen) and abdomen soft; no guarding, abdomen not rigid (abdomen is not rigid and no peritonitis on palpation or percussion) and abdomen not firm LLQ colostomy with liquid stool palpable. Bag is not clear so unable to visualize the color of the stool Abdomen is not rigid but patient would not completely relax his abdominal muscles during my examination. Skin: no rashes, warm and dry no jaundice Psychiatric: Orientation: alert and oriented x 3 Eye Contact: + poor eye contact Affect: + depressed affect Results & Data ([facility]) Vital Signs (Past 12 Hours) Vital Signs Temp Pulse Resp BP Pulse Ox O2 Del Method 06/01/22 07:21 37.4 C 62 14 133/69 95 Room Air Laboratory Results 06/01/22 06/01/22 06/01/22 Range/Units 13:09 12:46 12:40 WBC (4.8-10.8) K/ul RBC (4.63-6.08) M/uL Hgb (14.0-18.0) g/dl Hct (40.1-51.0) % MCV (80.0-100.0) fL MCH (25.0-34.0) pg MCHC (32.0-36.0) g/dL RDW Std Deviation (36.4-46.3) fL RDW Coeff of Gustavo (11.5-14.5) % Plt Count (130-400) K/uL MPV (9.4-12.4) fL Immature Gran % (Auto) % Neut % (Auto) % Lymph % (Auto) % [place] % (Auto) % Eos % (Auto) % Baso % (Auto) % Neut # (Auto) (1.4-6.5) K/uL Lymph # (Auto) (1.2-3.4) K/uL [place] # (Auto) (0.24-0.82) K/uL Eos # (Auto) (0-0.50) K/uL Baso # (Auto) (0-0.2) K/uL Immature Gran # (Auto) (0.00-0.02) K/uL Toxic Granulation Dohle Bodies Sodium 135 L (136-145) mmol/L Potassium 3.3 L (3.5-5.1) mmol/L Chloride 107 (98-107) mmol/L Carbon Dioxide 19 L (21-32) mmol/L Anion Gap 9 (3-11) BUN 70 H (6-23) mg/dl Creatinine 2.73 H (0.6-1.4) mg/dl Est Cr Clr Drug Dosing 21.2 ml/min Est GFR ( Amer) 24.9 ml/min Est GFR (Non-Af Amer) 21.5 ml/min BUN/Creatinine Ratio 25.6 H (10-20) Glucose 139 H (70-99(Fasting)) mg/dl POC Glucose 195 H (70-99) mg/dl Lactate 1.3 (0.4-2.0) mmol/L Calcium 8.4 L (8.5-10.1) mg/dl Total Bilirubin 0.4 (0.2-1.0) mg/dl AST 9 L (13-39) U/L ALT 10 (7-52) U/L Alkaline Phosphatase 118 H (34-104) U/L Total Protein 5.5 L (6.0-8.3) gm/dl Albumin 2.6 L (3.4-5.0) gm/dl Globulin 2.9 (2.5-4.0) gm/dl Albumin/Globulin Ratio 0.9 (0.9-2) 06/01/22 06/01/22 06/01/22 Range/Units 12:40 07:41 05:15 WBC 8.80 (4.8-10.8) K/ul RBC 3.66 L (4.63-6.08) M/uL Hgb 11.2 L (14.0-18.0) g/dl Hct 32.3 L (40.1-51.0) % MCV 88.3 (80.0-100.0) fL MCH 30.6 (25.0-34.0) pg MCHC 34.7 (32.0-36.0) g/dL RDW Std Deviation 45.7 (36.4-46.3) fL RDW Coeff of Gustavo 14.2 (11.5-14.5) % Plt Count 116 L (130-400) K/uL MPV 11.2 (9.4-12.4) fL Immature Gran % (Auto) 1.1 % Neut % (Auto) 91.6 % Lymph % (Auto) 1.9 % Sen[place] % (Auto) 4.8 % Eos % (Auto) 0.5 % Baso % (Auto) 0.1 % Neut # (Auto) 8.06 H (1.4-6.5) K/uL Lymph # (Auto) 0.17 L (1.2-3.4) K/uL [place] # (Auto) 0.42 (0.24-0.82) K/uL Eos # (Auto) 0.04 (0-0.50) K/uL Baso # (Auto) 0.01 (0-0.2) K/uL Immature Gran # (Auto) 0.10 H (0.00-0.02) K/uL Toxic Granulation 2+ Dohle Bodies 1+ Sodium 136 (136-145) mmol/L Potassium 3.7 (3.5-5.1) mmol/L Chloride 108 H (98-107) mmol/L Carbon Dioxide 19 L (21-32) mmol/L Anion Gap 9 (3-11) BUN 71 H (6-23) mg/dl Creatinine 2.60 H D (0.6-1.4) mg/dl Est Cr Clr Drug Dosing 22.3 ml/min Est GFR ( Amer) 26.4 ml/min Est GFR (Non-Af Amer) 22.8 ml/min BUN/Creatinine Ratio 27.3 H (10-20) Glucose 72 (70-99(Fasting)) mg/dl POC Glucose 120 H (70-99) mg/dl Lactate (0.4-2.0) mmol/L Calcium 8.4 L (8.5-10.1) mg/dl Total Bilirubin (0.2-1.0) mg/dl AST (13-39) U/L ALT (7-52) U/L Alkaline Phosphatase (34-104) U/L Total Protein (6.0-8.3) gm/dl Albumin (3.4-5.0) gm/dl Globulin (2.5-4.0) gm/dl Albumin/Globulin Ratio (0.9-2) 05/31/22 Range/Units 16:42 WBC (4.8-10.8) K/ul RBC (4.63-6.08) M/uL Hgb (14.0-18.0) g/dl Hct (40.1-51.0) % MCV (80.0-100.0) fL MCH (25.0-34.0) pg MCHC (32.0-36.0) g/dL RDW Std Deviation (36.4-46.3) fL RDW Coeff of Gustavo (11.5-14.5) % Plt Count (130-400) K/uL MPV (9.4-12.4) fL Immature Gran % (Auto) % Neut % (Auto) % Lymph % (Auto) % [place] % (Auto) % Eos % (Auto) % Baso % (Auto) % Neut # (Auto) (1.4-6.5) K/uL Lymph # (Auto) (1.2-3.4) K/uL [place] # (Auto) (0.24-0.82) K/uL Eos # (Auto) (0-0.50) K/uL Baso # (Auto) (0-0.2) K/uL Immature Gran # (Auto) (0.00-0.02) K/uL Toxic Granulation Dohle Bodies Sodium (136-145) mmol/L Potassium (3.5-5.1) mmol/L Chloride (98-107) mmol/L Carbon Dioxide (21-32) mmol/L Anion Gap (3-11) BUN (6-23) mg/dl Creatinine (0.6-1.4) mg/dl Est Cr Clr Drug Dosing ml/min Est GFR ( Amer) ml/min Est GFR (Non-Af Amer) ml/min BUN/Creatinine Ratio (10-20) Glucose (70-99(Fasting)) mg/dl POC Glucose 133 H (70-99) mg/dl Lactate (0.4-2.0) mmol/L Calcium (8.5-10.1) mg/dl Total Bilirubin (0.2-1.0) mg/dl AST (13-39) U/L ALT (7-52) U/L Alkaline Phosphatase (34-104) U/L Total Protein (6.0-8.3) gm/dl Albumin (3.4-5.0) gm/dl Globulin (2.5-4.0) gm/dl Albumin/Globulin Ratio (0.9-2) Diagnostic Findings ABDOMEN AND PELVIS CT WITHOUT CONTRAST CT DOSE: 282.62 mGy.cm HISTORY: Acute kidney injury. TECHNIQUE: Multiaxial CT images of the abdomen and pelvis were performed without contrast. A dose lowering technique was utilized adhering to the principles of ALARA. COMPARISON STUDY: Abdomen and pelvis CT 02/11/2021. FINDINGS: There is interval development of a small right pleural effusion. Right lower lobe densities consistent with subsegmental atelectasis. There is a new 3.7 cm lytic lesion within the right inferior pubic bone. Diffuse body wall edema. The small fat-containing left inguinal hernia containing a knuckle of small bowel and fluid. Right pelvic sidewall infiltrative mass is again noted. This is similar to the prior study. The unenhanced liver, spleen, adrenal glands, pancreas appear unremarkable. There is moderate left hydroureteronephrosis, unchanged. Mild bladder wall thickening is also unchanged. Interval progression of the severe right hydroureteronephrosis to the level of the deep pelvis with probable obstruction from the right pelvic sidewall mass. There is layering hyperdense material within the dilated right renal collecting system which could represent stasis or blood products. There is urothelial thickening within the right renal Greta system and right ureter. There are scattered foci of extraluminal gas within the right perinephric space and adjacent to the right renal pelvis and proximal to mid right ureter. There is associated inflammatory change at this location. This gas also abuts the second portion of duodenum which appears slightly thickened. Therefore, perfo rated duodenal ulcer is considered less likely but not entirely excluded. Left lower quadrant colostomy with a parastomal hernia containing multiple loops of large and small bowel. No dilated loops of bowel to suggest an obstruction. IMPRESSION: 1. Interval progression of the severe right hydroureteronephrosis with the obstruction likely secondary to the infiltrative right pelvic sidewall mass. 2. There is interval development of scattered foci of gas within the right lower perinephric space and surrounding the right ureteropelvic junction. There is associated inflammatory change at this location. Therefore, this favors an infectious process from a gas-forming organism. However, the gas and inflammation also abuts the second portion of the duodenum which is slightly thickened. This may be reactive. However, a perforated duodenal ulcer could also have a similar appearance. 3. Moderate left hydroureteronephrosis, unchanged. 4. Interval development of a lytic lesion within the right inferior pubic bone consistent with metastatic disease. 5. Small right pleural effusion. 6. Additional findings as described above.
[2022-06-01] MEDS ORDERED: LIDOCAINE 2% JELLY 5 ML TUBE ONE (18:50)
[2022-06-02] MEDS: CHECK fentaNYL PATCH PLACEMENT SCH ×2 (00:42→08:30)
[2022-06-02 06:46] LABS: Hematocrit (blood only) 30.7 % (40.1-51.0); Hemoglobin 10.3 g/dl (14.0-18.0); Mean Corpuscular Hemoglobin 30.2 pg (25.0-34.0); Mean Corpuscular Hgb Conc 33.6 g/dL (32.0-36.0); Mean Platelet Volume 11.4 fL (9.4-12.4); Platelet Count 110 K/uL (130-400); RDW Coefficient of Variation 14.3 % (11.5-14.5); RDW Standard Deviation 46.8 fL (36.4-46.3); Red Blood Count 3.41 M/uL (4.63-6.08); White Blood Count 7.92 K/ul (4.8-10.8)
[2022-06-02 07:08] VITALS: PULSE 63; TEMP 98.8; O2SAT 95
[2022-06-02 07:17] LABS: BUN Creatinine Ratio 24.6 (10-20); Basophils # (auto) 0.01 K/uL (0-0.2); Basophils % (auto) 0.1 %; Calcium 8.4 mg/dl (8.5-10.1); Creatinine Clr Calc Pharmacy 22.3 ml/min; Dohle Bodies 1+; Eosinophils # (auto) 0.03 K/uL (0-0.50); Eosinophils % (auto) 0.4 %; Est GFR (African American) 26.4 ml/min; Est GFR (Non-African American) 22.8 ml/min; Immature Granulocytes # (auto) 0.11 K/uL (0.00-0.02); Immature Granulocytes % (auto) 1.4 %; Lymphocytes % (auto) 2.5 %; Monocytes # (auto) 0.28 K/uL (0.24-0.82); Monocytes % (auto) 3.5 %; Neutrophils # (auto) 7.29 K/uL (1.4-6.5); Neutrophils % (auto) 92.1 %; Potassium 3.3 mmol/L (3.5-5.1); Toxic Granulation 1+
[2022-06-02] MEDS ORDERED: POTASSIUM CHLORIDE CRTAB 20 MEQ TABCR PO STA (07:55)
[2022-06-02] MEDS: INSULIN ASPART PER UNIT SC SCH ×3 (08:29→13:31)
[2022-06-02] MEDS ORDERED: LANTUS PER UNIT CHARGE SQ SCH (09:00)
[2022-06-02] MEDS ORDERED: PANTOprazole 40 MG TAB PO SCH (09:00)
[2022-06-02] MEDS: GABAPENTIN 300 MG CAP PO SCH (09:45)
[2022-06-02] MEDS: oxyCODONE HCL IR 30 MG TAB (IMMEDIATE RELEASE) PO PRN (09:45)
[2022-06-02] MEDS ORDERED: INSULIN ASPART PER UNIT ONE (09:52)
--- NOTE | 2022-06-02 10:42 | Pharmacy Report ---
Pharmacy Glycemic Short Note 2 - Date of Service June 02, 2022 - Glycemic Short BSG Results (Last 24 hours): 06/01/22 06/01/22 06/01/22 12:40 13:09 17:05 Glucose 139 H POC Glucose 195 H 255 H 06/01/22 06/02/22 06/02/22 20:28 05:47 09:43 Glucose 139 H POC Glucose 222 H 362 H* 06/02/22 09:44 Glucose POC Glucose 350 H* OUTPATIENT ANTIDIABETIC REGIMEN: * N/A * HbA1C = 8.1% (05/28/22) ASSESSMENT: 06/02: * Yunior received 33 units of insulin yesterday (5 units basal + 28 units bolus). BSGs were uncontrolled: [phone] mg/dL. * Fasting BSG was 139 mg/dL this AM per BMP, no POC. Given large disparity in basal-bolus balance, will increase basal this AM. * BSGs trend upwards throughout the day. Tightened Novolog this AM. Patient refused AM Novolog today but then had an orange juice for which POC BSG taken afterwards was 350 mg/dL. Patient was covered based on this 350 mg/dL BSG value so will monitor lunchtime BSG for hypoglycemia given large dose received. 06/01: * BSGs yesterday were [phone] mg/dL. Fasting was 72 mg/dL on PRP and 120 on POC. * Patient received 50 units of insulin (8 units of basal and 42 units of bolus). * Will reduce basal by 20% to 5 units of Lantus for now as PRP BSG continues to trend down. * Novolog adjusted yesterday to have tighter coverage throughout the day but looser at breakfast/evening. BSGs appeared well controlled yesterday so will continue. 05/29: * BSGs yesterday were [phone] mg/dL. Patient received 25 units of insulin yesterday (10 units of basal and 15 units of bolus). * BSGs today are 127-214 mg/dL. * Continue Lantus 10 units for today ... scale for tomorrow titrating upwards by 10% and 20% for elevated BSGs. * Tighten CR as BSGs trend upwards through the day. PLAN FOR INPATIENT GLYCEMIC CONTROL: * Basal insulin * Lantus 8 units SC daily * Bolus insulin * NovoLog per scale ACHS or Q6hrs while NPO * Goal Range: Low 110 mg/dL - High 140 mg/dL * Correction Factor: 20 mg/dL/unit * Nutritional / Prandial insulin per carb ratio of 1 unit per 4 grams CHO consumed
--- NOTE | 2022-06-02 12:49 | Discharge Summary ---
Date of Service June 02, 2022 Admission HPI Per Admitting Provider Yunior Rosas is a 76-year-old male past medical history significant for rectal cancer now on hospice care he presents today from home with his due to elevated blood sugars. Over the past several days, he has been significantly more weak tremulous than usual and has had several falls, which prompted to check her sugar and states that it read in the 500s at home. Patient is a former diabetic, has been off medications for about a decade now. As stated, he is on hospice care and his only current medications include those for pain. He was recently started on dexamethasone 1 month ago, currently taking 6 mg daily. He was put on this because he is at max dose on all his other pain medications. He has had significant relief from his pain since starting steroid. Other than feeling weak, he is without complaint today, no fever or chills, body aches, chest pain, palpitation, shortness of breath, cough, abdominal pain, nausea, vomiting, dysuria, diarrhea, constipation. In ED, he has been bradycardic in the 4050s, asymptomatic, vitals otherwise within normal limits. Labs significant for WBC of 14.45 calcium 5.2, 18, AG 13, BUN 106, creatinine 2.80, glucose 526. Presentation consistent with a mild DKA. CXR and head CT acute findings. DKA protocol initiated in ED. Principal Diagnosis Acute pyelonephritis Diabetic ketoacidosis Acute kidney failure Possible duodenal ulcer Discharge Exam Constitutional well developed and + frail appearing; + not well nourished Respiratory normal respiratory effort, lungs clear to auscultation Cardiovascular RRR, no murmur, no edema Gastrointestinal (Abdomen) Inspection/Auscultation: normal bowel sounds Percussion/Palpation: + abdomen tender (Suprapubic) and abdomen soft; no guarding and abdomen not rigid Skin no rashes, warm and dry Psychiatric A+Ox3, euthymic affect Genitourinary + CVA tenderness (right) Discharge Data Allergies Allergy/AdvReac Type Severity Reaction Status Date / Time No Known Allergies Allergy Verified 02/11/21 14:11 Consultations 05/27/22 18:37 ED Decision to Admit Stat 06/01/22 12:00 Consult General Surgery Routine Ordered Studies 05/27/22 16:33 CT head/brain wo con Stat IMPRESSION: No acute intracranial abnormality. 05/31/22 15:09 CT abd pelvis wo con Urgent IMPRESSION: 1. Interval progression of the severe right hydroureteronephrosis with the obstruction likely secondary to the infiltrative right pelvic sidewall mass. 2. There is interval development of scattered foci of gas within the right lower perinephric space and surrounding the right ureteropelvic junction. There is associated inflammatory change at this location. Therefore, this favors an infectious process from a gas-forming organism. However, the gas and inflammation also abuts the second portion of the duodenum which is slightly thickened. This may be reactive. However, a perforated duodenal ulcer could also have a similar appearance. 3. Moderate left hydroureteronephrosis, unchanged. 4. Interval development of a lytic lesion within the right inferior pubic bone consistent with metastatic disease. 5. Small right pleural effusion. 6. Additional findings as described above. 06/01/22 12:00 CT abd pelvis oral con only Stat IMPRESSION: 1. Severe right-sided hydroureteronephrosis redemonstrated with inflammatory stranding, small volume of free fluid and scattered foci of air within the right lower perinephric space and surrounding the right ureteropelvic junction, likely from gas forming organism however gas is again noted abutting the thickened second portion of the duodenum. Perforated duodenal ulcer remains a differential consideration. Findings could be correlated with endoscopy. 2. Moderate to severe left-sided hydroureteronephrosis. 3. Right pelvic sidewall mass redemonstrated. 4. Lytic infiltrative metastatic lesion of the right inferior pubic ramus. 5. Small right pleural effusion. 6. Additional findings as above. Hospital Course (1) Acute pyelonephritis: Yunior Rosas is a 76 year old male admitted to [facility] from May 27 - 2021 due to hyperglycemia, tremors and falls. He was diagnosed with diabetic ketoacidosis and associated acute kidney failure likely secondary to recent dexamethasone use. This was treated with intravenous fluids and insulin and he will be discharged on Lantus 8 units daily on discharge as pres cribed below. He was advised to contact his physician for advice regarding changes to his insulin if he is to have further course of steroids. Given ongoing right back tenderness and urine culture growing E. coli he was diagnosed with acute pyelonephritis. This was treated with intravenous ceftriaxone during his inpatient stay and he will be switched to cefdinir on discharge for a total antibiotic course for 14 days. He was also diagnosed with acute kidney injury which has did not resolve despite intravenous fluids and suspect this is due to severe hydronephrosis on the right side due to pressure from his right pelvic mass. He was advised he remains at risk of further kidney damage and infections. His case was discussed with urology during his inpatient stay and any ureteral stent would be lifelong once put in and changed every few months. If his pain gets worse or infections returns this could be considered but given his desire for hospice care this was not pursued at the current time. Sodium bicarbonate was prescribed for metabolic acidosis secondary to CKD. He also had traumatic hematuria due to continuous intermittent catheterizations (CIC) therefore campa catheter was placed on discharge and should be changed monthly; however there is no definitive reason he cannot go back to CIC other than I suspect his left sided hydronephrosis is because he is not doing this enough. CT also showed some possible concern of a perforated duodenal ulcer however his clinical picture did not suggest this. He was seen by surgery and recommended EGD if this is to be further worked up but he declined this which is consistent with his goals of care and unlikelihood of this diagnosis. Recommend however using pantoprazole 40mg PO daily on discharge, stopping ibuprofen and no steroids for 1 month. 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: Total Time Total Time Spent Total Time Spent (In Minutes): 50 Discharge Plan Discharge Items Patient Disposition: Hospice - Home Reason For Visit: DKA Discharge Diagnosis: Acute pyelonephritis Diabetic ketoacidosis Acute kidney failure Possible duodenal ulcer Activity: Per Instructions section Non-emergency contact: Primary Care Provider Call non-emergency contact if: you have any medication questions and your symptoms worsen Follow-up/Referrals: James Zheng MD [Primary Care Provider] - Diet: Carb Count or DM1 Addtl Attending Provider Instructions: You were admitted to [facility] from May 27 - 2021 due to elevated blood sugars, tremors and falls. Likely elevated glucose values due to diabetes and recent dexamethasone (steroid) use. You were treated with intravenous fluids and insulin and will be discharged on Lantus (long acting insulin) on discharge as prescribed below. If you are going back on dexamethasone (not recommend for at least one month due to concern for duodenal ulcer) recommend discussing increasing insulin coverage with your hospice provider to cover for elevated glucose levels. Given ongoing right back tenderness and urine culture growing E. coli you were diagnosed with acute pyelonephritis (kidney infection). This was treated with intravenous ceftriaxone (antibiotic) during your inpatient stay and you will be switched to cefdinir on discharge for a total antibiotic course for 14 days. You were also diagnosed with acute kidney injury which has did not resolve despite intravenous fluids and suspect this is due to severe hydronephrosis (back up of fluid) to your right kidney due to pressure from your right pelvic mass. This makes infections more likely to reoccur. If your pain is getting worse in this area consider urology follow up for ureteral stent. Sodium bicarbonate was prescribed for metabolic acidosis with your kidney disease. Recommend continuing campa catheter and having this changed once a month on hospice care. There was some possible concern of a perforated duodenal ulcer on CT however given your abdominal pain is not consistent with this, stable vital signs, wish to not undergo further endoscopic evaluation and plan to discharge on hospice ca re we treated this with pantoprazole and recommend continuing on this on discharge indefinitely. Recommend stopping ibuprofen as this can make duodenal ulcers worse. Recommend no further dexamethasone for at least the next month as this can also make duodenal ulcers worse. He was discharged back to hospice care. Pending Studies at Discharge: No Stand-Alone Forms: My [facility] Medications and DC Order Prescriptions: New insulin glargine [Lantus U-100 Insulin] 100 unit/mL Solution 8 unit subcut DAILY Qty: 10 0RF pantoprazole 40 mg Tablet,Delayed Release (Dr/Ec) 40 mg PO QAM Qty: 30 0RF cefdinir 300 mg capsule 300 mg PO DAILY 9 Days Qty: 9 0RF sodium bicarbonate 650 mg tablet 650 mg PO DAILY Qty: 30 0RF (DME) OneTouch Verio test strips Strip See Rx Instructions .Route Qty: 100 0RF Rx Instructions: x3/day (DME) lancets [OneTouch Delica Lancets] 33 gauge misc See Rx Instructions .Route Qty: 100 0RF Rx Instructions: x3/day (DME) pen needle, diabetic [Pen Needle] 32 gauge x 5/32" needle See Rx Instructions .Route Qty: 100 0RF Rx Instructions: Daily gabapentin 300 mg capsule 300 mg PO TID Qty: 90 0RF Continued fentanyl 50 mcg/hr patch 72 hour 1 patch transdermal Q72H Qty: 10 0RF morphine concentrate 100 mg/5 mL (20 mg/mL) solution See Rx Instructions .ROUTE .COMPLEX PRN (Reason: Pain) Rx Instructions: 0.25 ml or 0.50 ml as needed for pain lorazepam 2 mg/mL concentrate See Rx Instructions .ROUTE .COMPLEX PRN (Reason: Anxiety) Rx Instructions: 0.25 or 0.50 ml at night prn fentanyl 100 mcg/hr patch 72 hour fentanyl 100 mcg/hr patch 72 hour 1 patch transdermal Q72H Rx Instructions: THREE 100 mg patches applied Q72 hours in addition to ONE 50 mg patch and ONE 12 mg patch, last placed 05/27 and to be removed 05/29 fentanyl 12 mcg/hr patch 72 hour 1 patch transdermal Q72H Discontinued dexamethasone 6 mg tablet 6 mg PO DAILY ibuprofen 600 mg tablet 600 mg PO TID Discharge Orders: Discharge Order (Routine); Ordered 06/02/22 Ordered By: James Pedroza/Other Patient Handouts: High Blood Sugar (Hyperglycemia), Diabetic Ketoacidosis Admission Data Admit Date/Time: 05/27/22 17:58 Attending Provider: James Moran Admit Provider: Omkar Ortiz Primary Care Provider: James Zheng Other Providers: Omkar Ortiz ; Sebas Guadalupe Other Interventions: Discharge Summary Assessment (RN) Last Done: 06/02/22 13:48 Coding Level of Care Code D/C DAY MANAGEMENT >30 MINS Diagnoses Acute pyelonephritis N10 Abnormal CT of the abdomen R93.5 DKA (diabetic ketoacidosis) E11.10 Dmyha-pc-[id number] kidney injury N17.9; N18.9 Generalized weakness R53.1 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
[2022-06-02] MEDS: cefTRIAXone SODIUM 1,000 MG in DEXTROSE 5% 50 ML IV SCH (13:31)
[2022-06-02 13:59] VITALS: BP 143/70
== END 2022-06-02 13:55 | disposition hospice, home (50) | DRG 638 ==
LOC: ED 15:50 → 4W 17:58 → SUATTDRO 17:58 → INTOOBSV 17:58 → 4W 19:20